=== PATIENT | male | born 1960 | race Caucasian/White ===

== ENCOUNTER → 2016-07-21 | Outpatient (CLI) | payer BC ==
[~2016-07-21] MED LIST: CINN500T PO; INSUINJ7 SC; INSUINJ8 SC
== END | disposition home or self-care (01) ==
LOC: C.LABSPEC 15:52
PROVIDERS: ATTEND Podiatrist
DX: Z48.89 Encounter for other specified surgical aftercare (principal); E11.621 Type 2 diabetes mellitus with foot ulcer; L03.031 Cellulitis of right toe

== ENCOUNTER → 2016-10-15 | Outpatient (CLI) | payer BC | END | disposition home or self-care (01) | LOC: C.LABSPEC 17:03 | PROVIDERS: ATTEND Podiatrist | DX: Z48.89 Encounter for other specified surgical aftercare (principal); L97.511 Non-pressure chronic ulcer of other part of right foot limited to breakdown of skin ==

== ENCOUNTER → 2017-08-22 | Outpatient (CLI) | payer OTHER ==
[2017-08-22 12:39] LABS: BASO % 0.3 %; BASO ABS # 0.03 K/uL (0-0.2); EOS % 1.7 %; EOS ABS # 0.18 K/uL (0-0.5); HEMATOCRIT 38.2 % (42-52); IG# 0.07 K/uL (0.00-0.02); LYMPH ABS # 1.91 K/uL (1.2-3.4); MEAN CELL VOLUME 80.8 fL (80-100); MEAN CORPUSCULAR HEMOGLOBIN 25.4 pg (25-34); MEAN CORPUSCULAR HGB CONC 31.4 g/dl (32-36); MEAN PLATELET VOLUME 9.6 fL (7.4-10.4); MONO % 7.3 %; MONO ABS # 0.77 K/uL (0.11-0.59); NEUT ABS # 7.65 K/uL (1.4-6.5); PLATELET COUNT 312 K/uL (130-400); RED CELL DISTRIBUTION WIDTH CV 15.6 % (11.5-14.5); RED CELL DISTRIBUTION WIDTH SD 46.2 fL (36.4-46.3); WHITE BLOOD COUNT 10.61 K/uL (4.8-10.8)
[2017-08-22 13:05] LABS: ALBUMIN 2.7 gm/dl (3.4-5.0); ALKALINE PHOSPHATASE 110 U/L (45-117); ALT/SGPT 12 U/L (12-78); AST/SGOT 12 U/L (15-37); BLOOD UREA NITROGEN 22 mg/dl (7-18); CALCIUM 8.2 mg/dl (8.5-10.1); CARBON DIOXIDE 28 mmol/L (21-32); CHOLESTEROL 171 mg/dl (0-200); CREATININE 0.81 mg/dl (0.60-1.40); GLUCOSE 110 mg/dl (70-99); LDL CHOLESTEROL CALCULATED 111 mg/dl; POTASSIUM 4.4 mmol/L (3.5-5.1); SODIUM 134 mmol/L (136-145); TOTAL PROTEIN 8.2 gm/dl (6.4-8.2)
[2017-08-22 13:19] LABS: HEMOGLOBIN A1C 9.6 % (4.5-5.6)
== END | disposition home or self-care (01) ==
LOC: C.LABPBG 09:22
PROVIDERS: ATTEND Internal Medicine
DX: I87.2 Venous insufficiency (chronic) (peripheral) (principal); E78.5 Hyperlipidemia, unspecified; E11.319 Type 2 diabetes mellitus with unspecified diabetic retinopathy without macular edema; E11.65 Type 2 diabetes mellitus with hyperglycemia; D64.9 Anemia, unspecified; M86.8X7 Other osteomyelitis, ankle and foot; S81.801A Unspecified open wound, right lower leg, initial encounter; X58.XXXA Exposure to other specified factors, initial encounter

== ENCOUNTER → 2017-11-29 | Outpatient (CLI) | payer OTHER ==
[~2017-11-29] MED LIST changes: +AMOX500C3 PO; -CINN500T PO; +CIPR1TAB11 PO
[2017-11-29 17:56] LABS: BLOOD UREA NITROGEN 18 mg/dl (7-18); CREATININE 0.98 mg/dl (0.60-1.40)
[2017-11-30 05:55] LABS: HEMOGLOBIN A1C 8.6 % (4.5-5.6)
== END | disposition home or self-care (01) ==
LOC: C.LABBC 12:12
PROVIDERS: ATTEND Physician Assistant
DX: S91.301D Unspecified open wound, right foot, subsequent encounter (principal); X58.XXXD Exposure to other specified factors, subsequent encounter; E11.319 Type 2 diabetes mellitus with unspecified diabetic retinopathy without macular edema

== ENCOUNTER → 2017-12-06 | Outpatient (CLI) | payer OTHER ==
[~2017-12-06] MED LIST changes: +GADAVIST IV PRN
--- NOTE | 2017-12-06 10:14 | DIAGNOSTIC IMAGING REPORT ---
RIGHT FOREFOOT MRI WITH AND WITHOUT INTRAVENOUS CONTRAST CLINICAL HISTORY: WOUND REDNESS. Right foot nonhealing wound. TECHNIQUE: Multiplanar multisequence MRI of the right forefoot was performed both before and after the intravenous administration of contrast. COMPARISON STUDY: Right forefoot MRI 02/26/2008. FINDINGS: The patient is status post amputation of the first toe. There is focal skin ulceration at the plantar surface of the head of the first metatarsal this measures approximately 1.7 cm. There is soft tissue enhancement surrounding the head of the first metatarsal. No fluid collection at this time to suggest a soft tissue abscess. Minimal sclerosis at the head of the first metatarsal without significant edema. Therefore, this is likely chronic. No abnormal enhancement within the first metatarsal or additional osseous structures to suggest osteomyelitis at this time. No fracture or dislocation within the forefoot. Degenerative changes seen at the first metatarsal joints. IMPRESSION: 1. No MRI evidence for osteomyelitis at this time. 2. Skin thickening and enhancement with a focal skin ulceration at the plantar surface of the head of the first metatarsal. This is consistent with a cellulitis. No abscess identified. Electronically signed by: Claude Abraham M.D. 12/06/2017 10:13 AM Dictated Date/Time: 12/06/2017 10:03 AM
== END | disposition home or self-care (01) ==
LOC: C.MRIBC 08:24
PROVIDERS: ATTEND Physician Assistant
DX: S91.301A Unspecified open wound, right foot, initial encounter (principal); X58.XXXA Exposure to other specified factors, initial encounter; R60.0 Localized edema

== ENCOUNTER → 2018-02-13 | Outpatient (CLI) | payer OTHER ==
[~2018-02-13] MED LIST changes: -AMOX500C3 PO; -CIPR1TAB11 PO; +DOXY100C41 PO; +DOXY1TAB6 PO; -GADAVIST IV PRN; +INSHNI; +INSHRIE; +SULF800T23 PO
[2018-02-13 16:59] LABS: HEMATOCRIT 40.8 % (42-52); HEMOGLOBIN 12.8 g/dL (14.0-18.0); MEAN CELL VOLUME 79.1 fL (80-100); MEAN CORPUSCULAR HEMOGLOBIN 24.8 pg (25-34); MEAN CORPUSCULAR HGB CONC 31.4 g/dl (32-36); MEAN PLATELET VOLUME 10.1 fL (7.4-10.4); PLATELET COUNT 260 K/uL (130-400); RED CELL DISTRIBUTION WIDTH CV 17.4 % (11.5-14.5); RED CELL DISTRIBUTION WIDTH SD 50.1 fL (36.4-46.3); WHITE BLOOD COUNT 10.24 K/uL (4.8-10.8)
[2018-02-13 17:11] LABS: BLOOD UREA NITROGEN 12 mg/dl (7-18); CALCIUM 8.3 mg/dl (8.5-10.1); CARBON DIOXIDE 26 mmol/L (21-32); CREATININE 0.82 mg/dl (0.60-1.40); GLUCOSE 221 mg/dl (70-99); POTASSIUM 4.5 mmol/L (3.5-5.1); SODIUM 133 mmol/L (136-145)
[2018-02-13 17:21] LABS: INR 0.9 (0.9-1.1)
== END | disposition home or self-care (01) ==
LOC: C.LABPBG 15:04
PROVIDERS: ATTEND Internal Medicine Interventional Cardiology
DX: Z01.818 Encounter for other preprocedural examination (principal)

== ENCOUNTER → 2018-02-17 | Day surgery (SDC) | payer OTHER ==
[~2018-02-17] VITALS: Ht 175.3 cm; Wt 148.0 kg
[~2018-02-17] MED LIST changes: +EPINEPHRINE INFIL SCH; +LIDOCAINE HCL 1% 20 ML VIAL ONE; +LIDOCAINE INFIL SCH; +NURSING VERBAL MED ORDER ONE; +SODIUM BICARBONATE INFIL SCH; +[UNRECOGNIZED DRUG - OTHER] INFIL SCH
[2018-02-17 07:12] VITALS: BP 146/61; PULSE 72; TEMP 36.8; O2SAT 93; Ht 175.3 cm; Wt 148.0 kg
--- NOTE | 2018-02-17 08:15 | History and Physical ---
History & Physical Date Feb 17, 2018. History of Present Illness Mr. 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 Patient states that the wound on the plantar aspect of his right foot has been there for probably more than a year. He reports longstanding issues with bilateral lower extremity swelling and prior venous ulcers, was previously treated with Unna boots by his intravenous therapy nurse without significant relief. More recently has been treated at the wound care center since 11/22 with improvement in ulceration size with compressive therapy and standard wound care. Underwent a venous reflux ultrasound study on 11/29/2017, which showed his right GSV to be dilated with reflux. Left GSV was also dilated with reflux, both appearing amenable to endovascular intervention. Past Medical/Surgical History 1. Poorly controlled type 2 diabetes. 2. Hyperlipidemia. 3. Prior diabetic foot ulceration, status post amputation. 4. Anemia. 5. Chronic venous insufficiency. 6. Morbid obesity with a probable obstructive sleep apnea. Additional History Hepatic Disease: No Endocrine Disorder: Yes Kidney Disease: No Hypertension: Yes Heart Disease: No Bleeding Tendencies: No Infectious Diseases: No Allergies Coded Allergies: Sulfamethoxazole w/Trimethoprim (Verified Allergy, Mild, NAUSEA VOMITTING , 11/24/17) STATED HE FELT LIKE HE HAD THE "FLU" WHEN HE TOOK THIS MEDICATION Bacitracin (Verified Adverse Reaction, Unknown, GI UPSET, 03/19/16) Neomycin (Verified Adverse Reaction, Unknown, GI UPSET, 03/19/16) Polymyxin B (Verified Adverse Reaction, Unknown, GI UPSET, 03/19/16) Home Medications Scheduled Doxycycline (Monohydrate) (Monodox), 100 MG PO BID Doxycycline Hyclate (Doxycycline Hyclate), 1 TAB PO BID Insulin Human NPH (Humulin N), UD Miscellaneous Medications Insulin Human Regular (Humulin R) Physical Examination Skin: warm/dry Eyes: normal inspection Respiratory/Chest: lungs clear Cardiovascular: regular rate, rhythm Abdomen / GI: normal bowel sounds Extremities: + pertinent finding (swelling, hyperpigmented, ulcerations bilaterally) Neurologic/Psych: alert ASA Classification: ASA Class III Plan of Treatment Proceed with bilateral GSV RFA
--- NOTE | 2018-02-17 08:15 | Pre Sedation Assessment ---
Pre Sedation Assessment General Date of Sedation: Feb 17, 2018. Vital Signs Past 12 Hours Date Time Temp Pulse Resp B/P (MAP) Pulse Ox O2 Delivery O2 Flow Rate FiO2 02/17/18 07:12 36.8 72 18 146/61 (89) 93 Room Air Review Cardiovascular: regular rate, rhythm, no edema Lungs: chest non-tender, lungs clear Pre-Sedation Airway Assessment Smoking Status: Never Smoker Hx of Sleep Apnea: Yes Short Thick Neck: Yes Thyro-mental Distance: < or =3 Finger Breadths Oral Cavity: WNL Mallampati Classification: Class IV ASA Classification: Class III NPO Status Date of Last Intake of Fluids: Feb 16, 2018 Time of Last Intake of Fluids: 2199 Date of Last Intake of Solids: Feb 16, 2018 Time of Last Intake of Solids: 2199 Procedure Planning Contraindications for Sedation: None Current Medications Reviewed: Yes Notes The planned sedation has been discussed with the patient. Informed Consent was obtained. I have identified the patient, determined the appropriateness of sedation and have assessed the patient immediately prior to the procedure. All medicine(s) and interventions are by my order.
--- NOTE | 2018-02-17 10:12 | Discharge Instructions ---
Discharge Instructions Procedure Procedure Date: Feb 17, 2018. Reason for Visit: Venous Insufficiency *Dr Dunne Doing*. Discharge Discharge Date: Feb 17, 2018. Discharge Diagnosis: Venous insufficiency Last Recorded Wt (Kilograms): 148 Anesthesia Post Anesthesia Instructions: If you have had General Anesthesia or IV Sedation: * Do not drive today. * Resume driving when surgeon permits. * Do not make important decisions or sign legal documents today. * Call surgeon for: 1. Temperature elevations greater than 101 degrees F. 2. Uncontrollable pain. 3. Excessive bleeding. 4. Persistent nausea and vomiting. 5. Medication intolerance (nausea, vomiting or rash). * For nausea and vomiting use only clear liquids such as: tea, soda, bouillon until nausea subsides, then gradually increase diet as tolerated. * If you have any concerns or questions, call your surgeon's office. If physician is unavailable and it is an emergency, call 911 or go to the nearest emergency room. Instructions Activity Recommendations: limitations as noted below Return to School/Work: with no limitations Recommended Home Diet: resume previous diet Allergies: Coded Allergies: Sulfamethoxazole w/Trimethoprim (Verified Allergy, Mild, NAUSEA VOMITTING , 11/24/17) STATED HE FELT LIKE HE HAD THE "FLU" WHEN HE TOOK THIS MEDICATION Bacitracin (Verified Adverse Reaction, Unknown, GI UPSET, 03/19/16) Neomycin (Verified Adverse Reaction, Unknown, GI UPSET, 03/19/16) Polymyxin B (Verified Adverse Reaction, Unknown, GI UPSET, 03/19/16) Follow Up Additional Instructions: Follow instructions as outlined in paperwork from Dr. Dunne' office. Up walking today. Follow up Ultrasound as scheduled. JASPER wrap until scheduled ultrasound Post ultrasound wear compression stockings indefinitely. Any severe pain, present to the emergency room for evaluation for DVT. Follow-up with: As scheduled. Ultrasound on Tuesday [facility] Recommendations: Call your doctor if: * Temperature above 101 degrees * Pain not relieved by pain medicine ordered * There is increased drainage or redness from any incision * You have any unanswered questions or concerns. Your Doctors Instructions noted above were prepared by provider Mina Dunne. Patient Signature Section: Patient Instructions Signature Page Terrance Denise Patient (or Guardian) Signature/Date: I have read and understand the instructions given to me by my caregivers. Caregiver/RN/Doctor Signature/Date: The above-named patient and/or guardian has received patient instructions on this date. + Original Patient Signature Page (only) stays with chart. Please make copy for patient.
[2018-02-17 10:28] VITALS: O2SAT 92
[2018-02-17 10:30] VITALS: BP 154/62; PULSE 77
--- NOTE | 2018-02-17 10:47 | Post Sedation Assessment ---
Post Sedation Assessment General Date of Sedation Feb 17, 2018. Vital Signs: Vital Signs Past 12 Hours Date Time Temp Pulse Resp B/P (MAP) Pulse Ox O2 Delivery O2 Flow Rate FiO2 02/17/18 10:30 77 18 154/62 (92) 02/17/18 10:28 65 18 150/49 (82) 92 Room Air 02/17/18 10:00 65 18 145/48 (80) 94 Room Air 02/17/18 09:43 71 18 140/60 (86) 94 Room Air 02/17/18 07:12 36.8 72 18 146/61 (89) 93 Room Air Post Procedure Recovery Score Activity: (2) Moves 4 extremities * Respiration: (2) Deep breath/cough Circulation: (2) +/-20% PreAnes Value Consciousness: (2) Fully Awake Oxygen Saturation: (2) > 92% On Room Air Post Anesthesia Score: 10 Discharge Sedation Level of Care: Phase I Post Sedation Plan On clinical assessment, the patient appears to have tolerated the sedation without complications. Patient is recovering as anticipated. Patient will continue to be monitored by nursing and may be discharged when sedation discharge criteria are met per below protocol. Upon Completions of procedure and additional 15 minutes continue every 5 minute vital signs and the P.A.R. score; then discharge to a Phase I or Fast Track to Phase II per the following guidelines: * Discharge Patient to appropriate Phase II area if PAR is 8 or greater or return to pre- procedure baseline. The post - procedure orders will be as directed. * If PAR score is less than 8 or not return to pre-procedure baseline then patient will follow Phase I monitoring till PAR is reached for Phase II. The Phase I may be done in procedure room or may call to secure a Phase I area. * If naloxone or flumazenil are used for reversal, hold in Phase I for an additional 60 -120 minutes before discharge to Phase II. Please call the Sedation Physician to re-evaluate and complete post-note for discharge to Phase II area. Do NOT discharge from procedure sedation or Phase 1 until post- sedation evaluation note is complete by procedure /sedation MD Sedation Discharge Instructions to be given to the patient at discharge to home.
--- NOTE | 2018-02-17 10:50 | [facility] Operative Report ---
Operative Report Operative Date Feb 17, 2018. Pre-Operative Diagnosis Chronic venous insufficiency Post-Operative Diagnosis Chronic venous insufficiency Procedure(s) Performed Right GSV radiofrequency ablation. Left GSV radiofrequency ablation. Ultrasound guided access Surgeon Uzair Surveyor Oil Well Directional Surgeon(s) Violet Estimated Blood Loss <10 Findings Dilated bilateral GSVs Drains None Anesthesia Type Local Complication(s) none Description of Procedure US guided access Right GSV below the knee. Catheter inserted, 3cm from SFJ. Tumescent injected. US confirmed not in deep system. 4:00, 12 cycles of RFA right GSV. No complications. Patient tolerated well. US confirmed no DVT post procedure. US guided access Left GSV below the knee. Catheter inserted, 3cm from SFJ. Tumescent injected. US confirmed not in deep system. 3:00, 9 cycles of RFA right GSV. No complications. Patient tolerated well. US confirmed no DVT post procedure. Summary: 1. Successful RFA of right GSV 2. Successful RFA of left GSV I attest to the content of the Intraoperative Record and any orders documented therein. Any exceptions are noted below.
--- NOTE | 2018-02-17 11:34 | DIAGNOSTIC IMAGING REPORT ---
L GUIDANCE FOR VENOUS ABLATION HISTORY: 57 years-old Male GUIDE FOR VENOUS ABLATION LEFT COMPARISON: None available TECHNIQUE: Multiple real-time sonographic images of the left greater saphenous vein were obtained assessing grayscale appearance and color flow FINDINGS: First image demonstrates a linear hypoechoic structure described as the greater saphenous vein with second image demonstrating internal color flow within this structure. The last image labeled greater saphenous vein was likely obtained postprocedural and shows increased echogenicity of the greater saphenous vein suggesting postablation changes. No internal flow was documented on the post ablation images. IMPRESSION: Sonographic assistance as above. Please see procedural report for further details. The above report was generated using voice recognition software. It may contain grammatical, syntax or spelling errors. Electronically signed by: Pollo Brandon M.D. 02/17/2018 11:33 AM Dictated Date/Time: 02/17/2018 11:31 AM
== END | disposition home or self-care (01) ==
LOC: C.EP 06:36
PROVIDERS: ATTEND Internal Medicine Interventional Cardiology
DX: I87.2 Venous insufficiency (chronic) (peripheral) (principal); E11.9 Type 2 diabetes mellitus without complications; E78.5 Hyperlipidemia, unspecified; E66.01 Morbid (severe) obesity due to excess calories; G47.33 Obstructive sleep apnea (adult) (pediatric); Z88.2 Allergy status to sulfonamides; Z88.1 Allergy status to other antibiotic agents; Z79.4 Long term (current) use of insulin

== ENCOUNTER 2021-06-26 08:47 | Inpatient (IN) ==
--- NOTE | 2021-06-26 09:20 | Emergency Department Note ---
History of Present Illness General Chief complaint: Abnormal Labs/Diagnostic Testing Stated complaint: BLOOD PLATELETS LOW,REF BY DOC Time Seen by Provider: 06/26/21 08:57 History of Present Illness Provider complaint: Abnormal blood work Onset (ago): day(s) 3 Location: face, mouth, chest and lower extremity Maximum Pain Intensity: 3 Associated symptoms: no chest pain, no cough, no headaches, no nausea/vomiting or no shortness of breath Treatments prior to arrival: none 60-year-old male presents emergency department for abnormal blood work. Patient states he saw his PCP yesterday and had blood work done and they told him his platelet count was low. He states his PCP told him to come into the hospital yesterday however he did not want to because he had to take care of his pet animals at home. Patient reports he has been having bloody noses in sores in his mouth for the last 3 days. He denies any fevers. Denies any headaches. Denies any hematuria or dysuria. No hemoptysis. Patient reports no abdominal pain. Home Medications Medication Instructions Recorded Confirmed Type CPAP Machine #1 ea 09/24/19 06/25/21 Rx CPAP Machine #1 ea 11/22/19 06/25/21 Rx FreeStyle Fabio 14 Day [place] #6 ea NS 12/26/19 06/25/21 Rx (flash glucose scanning reader) CPAP Machine #1 ea 02/28/20 06/25/21 Rx FreeStyle Fabio 14 Day Sensor #6 ea NS 07/23/20 06/25/21 Rx (flash glucose sensor) insulin NPH isoph U-100 human 100 See Rx Instructions SQ .COMPLEX 07/23/20 06/26/21 Rx unit/mL subcutaneous suspension #120 ml (Novolin N NPH U-100 Insulin isophane) insulin regular human 100 unit/mL See Rx Instructions SQ .COMPLEX 07/23/20 06/26/21 Rx injection solution (Novolin R #120 ml MDD 400 units Regular U-100 Insulin) insulin syringe-needle U-100 1 mL #180 ea 07/23/20 06/25/21 Rx 30 gauge x 1/2" (BD Insulin Syringe Ultra-Fine) irbesartan 150 mg tablet See Rx Instructions .ROUTE 02/10/21 06/26/21 Rx .COMPLEX #30 tab metformin 500 mg tablet,extended See Rx Instructions .ROUTE 02/10/21 06/26/21 Rx release 24 hr .COMPLEX #60 tab torsemide 20 mg tablet See Rx Instructions .ROUTE 02/10/21 06/26/21 Rx .COMPLEX #30 tab Allergies Allergy/AdvReac Type Severity Reaction Status Date / Time sulfamethoxazole AdvReac Mild NAUSEA, Verified 06/26/21 09:06 VOMITING trimethoprim AdvReac Mild NAUSEA, Verified 06/26/21 09:06 VOMITING bacitracin AdvReac Unknown GI UPSET Verified 06/26/21 09:06 neomycin AdvReac Unknown GI UPSET Verified 06/26/21 09:06 polymyxin B AdvReac Unknown GI UPSET Verified 06/26/21 09:06 Past Med/Surg History Medical History Anemia hx Chronic back pain Chronic venous insufficiency Diabetes Type 2 - IDDM Edema Hypertension Nocturnal hypoxemia Open wound of right lower extremity with complication on abx therapy -- Dr. 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 Hx of colonoscopy S/P foot surgery, right S/P lymph node biopsy needle aspiration Family History Father Acute myocardial infarction Alcohol abuse Tobacco use Diabetes Myocardial infarction Mother Brain cancer Social History Smoking Status: Never smoker Second Hand Exposure: No; Hx Alcohol Use: No Hx Substance Use: No Preferred Language: Swedish Communication Ability: Effective Visual Impairment: No Limitations Hearing Ability: Normal Normalizer Required: No Beliefs That Will Affect Care: None marital status: single Current Living Situation: Alone current occupational status: employed and unemployed How many Children do You have: 0 Feels Safe at Home: Yes caffeine: Yes during the past year weight has: remained stable Dental Care, Regularly: No Physical Activity Frequency: 1-2 Times per Week Physical Activity Frequency Comment: walks in the summertime Seatbelt Use: never Sunscreen Use: No Assistive Devices: None Review of Systems A total of 10 systems reviewed and were otherwise negative Physical Exam Vital Signs Vital Signs - 24 hr 06/26/21 08:50 06/26/21 10:00 Temperature 36.6 C Temperature Source Temporal Artery Scan Pulse Rate 93 H Pulse Rate [Left Finger] 72 Pulse Rhythm [Left Finger] Regular Pulse Strength [Left Finger] Normal Respiratory Rate 18 20 Respiratory Effort / Characteristics Non-Labored Spontaneous Non-Labored Spontaneous Respiratory Depth Normal Normal Blood Pressure 168/76 H Blood Pressure [Left Arm] 149/58 H Blood Pressure Mean 106 Blood Pressure Mean [Left Arm] 88 Blood Pressure Position Sitting Blood Pressure Position [Left Arm] Sitting Pulse Oximetry 93 95 Oxygen Delivery Method Room Air Room Air Sepsis Recent Fever Within 48 Hours No Sepsis New/Unexplained Change in Mental Status No Sepsis Action Taken by Nursing No Action Required Physical Exam GENERAL: He is oriented to person, place, and time. He appears well-developed and well-nourished. He does not appear distressed. HENT: Exam performed. - Head: Normocephalic and atraumatic. - Right Ear: External ear normal. No mastoid tenderness. - Left Ear: External ear normal. No mastoid tenderness. - Mouth/Throat: Lesions on the tongue and posterior pharynx which appear to be wet purpura. EYES: Conjunctivae and EOM are normal. Pupils are equal, round, and reactive to light. Right eye exhibits no discharge. Left eye exhibits no discharge. No scleral icterus. NECK: Normal range of motion. Neck supple. No JVD present. No spinous process tenderness present. No carotid bruit present. No rigidity. No tracheal deviation and normal range of motion present. No Brudzinski's sign and no Kernig's sign noted. CV: Normal rate, irregular rhythm, normal heart sounds and intact distal pulses. There is no peripheral edema. Palpable radial pulses bue. PULM/CHEST: Effort normal and breath sounds normal. No respiratory distress. No stridor. He has no wheezes. He has no rales. - Chest Wall: He exhibits no tenderness. ABD: The abdomen is soft. Bowel sounds are normal. He has no distension. No mass is present. There is no tenderness. There is no rebound, no guarding, no Farrar's sign and no tenderness at McBurney's point. Rovsig negative. MUSC/SKEL: Normal range of motion. There is no peripheral edema, tenderness or deformity. LYMPH: No cervical adenopathy. NEURO: He is alert and oriented to person, place, and time. He has normal strength. No cranial nerve deficit or sensory deficit. Coordination and gait normal. GCS eye subscore is 4. GCS verbal subscore is 5. GCS motor subscore is 6. Cerebellar tests wnl. SKIN: Petechial rash over the patient's face anterior chest wall and anterior abdominal wall. PSYCH: He has a normal mood and affect. Behavior is normal. Judgment and thought content normal. Course Course 0857: The patient was evaluated in room B4. A complete history and physical exam was performed Cardiac monitoring: An order was placed for continuous cardiac monitoring. The monitor shows a rate of 90 with atrial fibrilation rhythm EMR reviewed. Patient was seen by their PCP yesterday and had blood work done and showed a platelet count of 2. 1015: Vital signs stable. Labs show a platelet count of 1. Hemoglobin 11.6. A blood cell count 10.64. Total bilirubin 0.9. Liver function test within normal limits. BUN 28 creatinine 0.99. Discussed the case with on-call oncology Dr. Gibson who agrees with me and that the patient could be suffering from ITP. She recommends ordering an additional peripheral smear, reticulocyte count, haptoglobin level, LDH level. She recommends IVIG 150 g every 24 hours for 2 days. She recommends the patient getting Tylenol p.o. 650 mg and Benadryl 25 mg prior to the IVIG infusion. She also recommends Decadron 40 mg daily for 4 days. She states to transfuse 1 unit of platelets. She states the patient should be admitted to the hospitalist team which will be on consult. Patient wi ll be admitted to the [facility] hospitalist service. Critical Care Time Critical Care Time: Yes Total Critical Care Time: 58 I have personally spent greater than 58 minutes of critical care time in the direct management of this patient. This includes bedside care, interpretation of diagnostic studies, and testing, discussion with consultants, patient, and family members, and other required patient management activities. This 58 minutes is in excess of all separately billable procedures. Medical Decision Making Laboratory Data Result diagrams: 06/26/21 09:25 06/26/21 09:25 Lab Results 06/26/21 06/26/21 06/26/21 Range/Units 09:24 09:25 09:25 WBC 10.64 (4.8-10.8) K/uL RBC 3.96 L (4.7-6.1) M/uL Hgb 11.6 L (14.0-18.0) g/dL Hct 35.5 L (42-52) % MCV 89.6 (80-100) fL MCH 29.3 (25-34) pg MCHC 32.7 (32-36) g/dL RDW Std Deviation 43.4 (36.4-46.3) fL RDW Coeff of Jeremy 13.3 (11.5-14.5) % Plt Count 1 L* (130-400) K/uL Immature Gran % (Auto) 4.3 % Neut % (Auto) 73.5 % Lymph % (Auto) 13.0 % [place] % (Auto) 7.6 % Eos % (Auto) 1.3 % Baso % (Auto) 0.3 % Reticulocyte % (Auto) 2.7 H (0.5-2.0) % Neut # (Auto) 7.82 H (1.4-6.5) K/uL Lymph # (Auto) 1.38 (1.2-3.4) K/uL [place] # (Auto) 0.81 H (0.11-0.59) K/uL Eos # (Auto) 0.14 (0-0.5) K/uL Baso # (Auto) 0.03 (0-0.2) K/uL Reticulocyte # 0.11 H (0.02-0.10) 10^6/uL Immature Gran # (Auto) 0.46 H (0.00-0.02) K/uL Platelet Estimate SIGNIFIC DECREASED (Normal) RBC Morphology Unremarkable Peripher Smr Path Cons PT 10.0 (9.0-12.0) Seconds INR 1.0 (0.9-1.1) APTT 25.8 (21.0-31.0) Seconds PTT Ratio 1.0 Sodium (136-145) mmol/L Potassium (3.5-5.1) mmol/L Chloride (98-107) mmol/L Carbon Dioxide (21-32) mmol/L Anion Gap (3-11) BUN (7-18) mg/dl Creatinine (0.6-1.4) mg/dl Est Cr Clr Drug Dosing ml/min Est GFR ( Amer) ml/min Est GFR (Non-Af Amer) ml/min BUN/Creatinine Ratio (10-20) Glucose (70-99) mg/dl Calcium (8.5-10.1) mg/dl Total Bilirubin (0.2-1) mg/dl Direct Bilirubin (0-0.2) mg/dl AST (15-37) U/L ALT (12-78) Alkaline Phosphatase (45-117) U/L Lactate Dehydrogenase (87-241) U/L Total Protein (6.4-8.2) gm/dl Albumin (3.4-5.0) gm/dl Blood Type O Positive Antibody Screen NEGATIVE 06/26/21 06/26/21 06/26/21 Range/Units 09:25 09:25 09:25 WBC (4.8-10.8) K/uL RBC (4.7-6.1) M/uL Hgb (14.0-18.0) g/dL Hct (42-52) % MCV (80-100) fL MCH (25-34) pg MCHC (32-36) g/dL RDW Std Deviation (36.4-46.3) fL RDW Coeff of Jeremy (11.5-14.5) % Plt Count (130-400) K/uL Immature Gran % (Auto) % Neut % (Auto) % Lymph % (Auto) % [place] % (Auto) % Eos % (Auto) % Baso % (Auto) % Reticulocyte % (Auto) Cancelled (0.5-2.0) % Neut # (Auto) (1.4-6.5) K/uL Lymph # (Auto) (1.2-3.4) K/uL [place] # (Auto) (0.11-0.59) K/uL Eos # (Auto) (0-0.5) K/uL Baso # (Auto) (0-0.2) K/uL Reticulocyte # Cancelled (0.02-0.10) 10^6/uL Immature Gran # (Auto) (0.00-0.02) K/uL Platelet Estimate (Normal) RBC Morphology Peripher Smr Path Cons Cancelled PT (9.0-12.0) Seconds INR (0.9-1.1) APTT (21.0-31.0) Seconds PTT Ratio Sodium 137 (136-145) mmol/L Potassium 4.6 (3.5-5.1) mmol/L Chloride 104 (98-107) mmol/L Carbon Dioxide 26 (21-32) mmol/L Anion Gap 7.0 (3-11) BUN 28 H (7-18) mg/dl Creatinine 0.99 (0.6-1.4) mg/dl Est Cr Clr Drug Dosing 123.0 ml/min Est GFR ( Amer) 96.9 ml/min Est GFR (Non-Af Amer) 83.6 ml/min BUN/Creatinine Ratio 27.9 H (10-20) Glucose 286 H (70-99) mg/dl Calcium 8.3 L (8.5-10.1) mg/dl Total Bilirubin 0.9 (0.2-1) mg/dl Direct Bilirubin 0.1 (0-0.2) mg/dl AST 14 L (15-37) U/L ALT 15 (12-78) Alkaline Phosphatase 106 (45-117) U/L Lactate Dehydrogenase 260 H (87-241) U/L Total Protein 7.4 (6.4-8.2) gm/dl Albumin 3.1 L (3.4-5.0) gm/dl Blood Type Antibody Screen Imaging Data Radiologist's Impression: Head CT 06/26/21 09:01 CT head/brain wo con CLINICAL HISTORY: ro ich Technique: Contiguous axial CT images of the head were acquired from the base of the skull to the vertex without intravenous contrast administration. Images were viewed in brain, subdural and bone windows. Automated dose lowering techniques and/or adjustment according to patient size were utilized for this exam. Comparison: None available at the time of this dictation. Findings: The ventricles, basal cisterns, and cerebral sulci are normal. There is no acute intracranial hemorrhage or evidence of acute territorial infarction. Neither mass effect, shift of the midline structures, nor abnormal extra-axial fluid collections are shown. Imaged portions of the paranasal sinuses and mastoid air cells are clear. The orbits appear normal. There are no acute fractures of the calvaria or scalp swelling. Impression: No acute intracranial hemorrhage, no evidence of acute territorial infarction or other acute intracranial disease process. ACT 112: Negative or not required by law. Electronically signed by: Antonio Correa M.D. 06/26/2021 9:41 AM ECG Data Indication: + other (arrythmia) Rate (beats per minute): 82 Rhythm: + atrial fibrillation ECG Intervals/blocks: + Normal QRS and + Normal QT-c ECG ST segments: + Normal ST segments [facility] Narrative 0857: The patient was evaluated in room B4. A complete history and physical exam was performed Cardiac monitoring: An order was placed for continuous cardiac monitoring. The monitor shows a rate of 90 with atrial fibrilation rhythm EMR reviewed. Patient was seen by their PCP yesterday and had blood work done and showed a platelet count of 2. 1015: Vital signs stable. Labs show a platelet count of 1. Hemoglobin 11.6. A blood cell count 10.64. Total bilirubin 0.9. Liver function test within normal limits. BUN 28 creatinine 0.99. Discussed the case with on-call oncology Dr. Gibson who agrees with me and that the patient could be suffering from ITP. She recommends ordering an additional peripheral smear, reticulocyte count, haptoglobin level, LDH level. She recommends IVIG 150 g every 24 hours for 2 days. She recommends the patient getting Tylenol p.o. 650 mg and Benadryl 25 mg prior to the IVIG infusion. She also recommends Decadron 40 mg daily for 4 days. She states to transfuse 1 unit of platelets. She states the patient should be admitted to the hospitalist team which will be on consult. Patient will be admitted to the [facility] hospitalist service. Impression & Plan Acute ITP Discharge Plan Visit Data Chief Complaint: Abnormal Labs/Diagnostic Testing Stated Complaint: BLOOD PLATELETS LOW,REF BY DOC Discharge Problem: Acute ITP Patient Disposition: Admitted As Inpatient Forms Stand Alone Forms: My [facility] Prescriptions Prescriptions: No Action (DME) CPAP Machine Misc See Rx Instructions .ROUTE .MEDSUPPLY Qty: 1 RF: 0 (DME) FreeStyle Fabio 14 Day Wenona Misc See Rx Instructions .ROUTE .MEDSUPPLY Qty: 6 RF: 3 (DME) FreeStyle Fabio 14 Day Sensor Kit See Rx Instructions .ROUTE .MEDSUPPLY Qty: 6 RF: 3 Novolin N NPH U-100 Insulin 100 unit/mL suspension See Rx Instructions SQ .COMPLEX Qty: 120 RF: 5 Novolin R Regular U-100 Insuln 100 unit/mL solution See Rx Instructions SQ .COMPLEX MDD 400 units Qty: 120 RF: 5 (DME) insulin syringe-needle U-100 [BD Insulin Syringe Ultra-Fine] 1 mL 30 gauge x 1/2" syringe See Dose Instructions .ROUTE .MEDSUPPLY Qty: 180 RF: 5 metformin 500 mg tablet extended release 24 hr See Rx Instructions .ROUTE .COMPLEX Qty: 60 RF: 5 irbesartan 150 mg tablet See Rx Instructions .ROUTE .COMPLEX Qty: 30 RF: 5 torsemide 20 mg tablet See Rx Instructions .ROUTE .COMPLEX Qty: 30 RF: 5 (DME) CPAP Machine Misc See Rx Instructions .MEDSUPPLY Qty: 1 RF: 0 (DME) CPAP Machine Misc See Rx Instructions .ROUTE .MEDSUPPLY Qty: 1 RF: 0 Referrals Referrals: Frank Landeros MD [Primary Care Provider] -
--- NOTE | 2021-06-26 09:43 | CT Scan Report ---
CT head/brain wo con CLINICAL HISTORY: ro ich Technique: Contiguous axial CT images of the head were acquired from the base of the skull to the manuel odette without intravenous contrast administration. Images were viewed in brain, subdural and bone [facility] hospital[facility] . Automated dose lowering techniques and/or adjustment according to patient size were utilized for this exam. Comparison: None available at the time of this dictation. Findings: The ventricles, basal cisterns, and cerebral sulci are normal. There is no acute intracranial hemorrh age or evidence of acute territorial infarction. Neither mass effect, shift of the midline structures , nor abnormal extra-axial fluid collections are shown. Imaged portions of the paranasal sinuses and mastoid air cells are clear. The orbits appear normal. There are no acute fractures of the calvaria or scalp swelling. Impression: No acute intracranial hemorrhage, no evidence of acute territorial infarction or other acute intracra nial disease process. ACT 112: Negative or not required by law. Electronically signed by: Antonio Correa M.D. 06/26/2021 9:41 AM
[2021-06-26 09:47] LABS: Partial Thromboplastin Time 25.8 Seconds (21.0-31.0)
[2021-06-26 09:53] LABS: Albumin Level 3.1 gm/dl (3.4-5.0); BUN Creatinine Ratio 27.9 (10-20); Bilirubin Direct 0.1 mg/dl (0-0.2); Calcium 8.3 mg/dl (8.5-10.1); Est GFR (African American) 96.9 ml/min; Est GFR (Non-African American) 83.6 ml/min; Potassium 4.6 mmol/L (3.5-5.1)
[2021-06-26 09:55] LABS: Bilirubin,Total 0.9 mg/dl (0.2-1); Total Protein 7.4 gm/dl (6.4-8.2)
[2021-06-26 10:03] LABS: Mean Corpuscular Hgb Conc 32.7 g/dL (32-36); Platelet Count 1 K/uL (130-400)
[2021-06-26 10:04] LABS: Basophils # (auto) 0.03 K/uL (0-0.2); Basophils % (auto) 0.3 %; Eosinophils # (auto) 0.14 K/uL (0-0.5); Eosinophils % (auto) 1.3 %; Hematocrit (blood only) 35.5 % (42-52); Hemoglobin 11.6 g/dL (14.0-18.0); Immature Granulocytes # (auto) 0.46 K/uL (0.00-0.02); Immature Granulocytes % (auto) 4.3 %; Lymphocytes # (auto) 1.38 K/uL (1.2-3.4); Mean Corpuscular Hemoglobin 29.3 pg (25-34); Mean Corpuscular Volume 89.6 fL (80-100); Monocytes # (auto) 0.81 K/uL (0.11-0.59); Monocytes % (auto) 7.6 %; Neutrophils # (auto) 7.82 K/uL (1.4-6.5); Neutrophils % (auto) 73.5 %; Platelet Estimate SIGNIFIC DECREASED (Normal); RBC Morphology Unremarkable; RDW Coefficient of Variation 13.3 % (11.5-14.5); RDW Standard Deviation 43.4 fL (36.4-46.3); Red Blood Count 3.96 M/uL (4.7-6.1); White Blood Count 10.64 K/uL (4.8-10.8)
[2021-06-26] MEDS ORDERED: SODIUM CHLORIDE 0.9% 250 ML IV PRN (10:17)
[2021-06-26] MEDS ORDERED: IMMUNE GLOBULIN (HUMAN) SOLN IV ONE (10:19)
[2021-06-26] MEDS ORDERED: diphenhydrAMINE 50 MG/ML VIAL IV STA (10:20)
[2021-06-26] MEDS ORDERED: ACETAMINOPHEN 325 MG TAB PO STA (10:20)
[2021-06-26] MEDS ORDERED: DEXAMETHASONE SOD INJ 4 MG/ML VIAL IV STA (10:20)
[2021-06-26 10:38] LABS: Reticulocyte % 2.7 % (0.5-2.0); Reticulocytes # 0.11 10^6/uL (0.02-0.10)
--- NOTE | 2021-06-26 10:55 | History & Physical Report ---
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 Peripheral smear, retic count, haptoglobin Transfuse 1 units of platelets IVIG 1g/kg for 2 days (diphenhydramine 25mg PO and acetaminophen 650mg PO 30 mins prior to infusion) Dexamethasone 40mg IV for 4 days He is not taking any precipitating medication HIV and hep C testing with next set of labs Consult hematology (2) Diabetes: Plan: Hemoglobin A1C 8.16 January 2021, repeat with AM labs Hold metformin Home insulin regimen Consult pharmacy for glycemic control in setting of high dose steroids - discussed case with ER pharmacist (3) Severe obstructive sleep apnea: Plan: BiPAP HS 31/03 (4) Hypertension: Plan: Continue irbesartan 150 mg p.o. daily Torsemide 20 mg p.o. daily Additional Lasix 40 mg IV given due to multiple transfusions required. (5) Venous stasis ulcer of left lower extremity: Plan: Does not appear cellulitic on admission but will need closely monitoring Plan: VTE Prophylaxis - Chemical contraindicated due to thrombocytopenia, SCDs not a good idea for the same reason Diet - T2DM Disposition - admit to med/tele Admission and Anticipated Discharge Date Admission Date: June 26, 2021 History of Present Illness Chief Complaint: Low platelets Primary Care Provider: Frank Landeros MD Terrance Walker is a 60 year old male who presents to the ER due to abnormal outpatient labs showing thrombocytopenia. He notes 2 weeks of cold/flu symptoms with nasal congestion, no fevers, chills, sinus pain, shortness of breath or chest pain. He reports epistaxis and tongue ulcers for the last 2 days. No melena or bright red blood in stool. He denies any history of autoimmune conditions such as IBD, RA or lupus. No known family history of hematological cancers. In the ER CT head was negative for intracranial hemorrhage. Hemoglobin 11.6 from 12.8 yesterday. LDH minimally elevated at 260. Thrombocytopenia was confirmed with platelet count 1K/uL. Hematology were contacted and recommending IVIG and dexamethasone. He was referred to medicine for admission ongoing management of ITP. Allergies Allergy/AdvReac Type Severity Reaction Status Date / Time sulfamethoxazole AdvReac Mild NAUSEA, Verified 06/26/21 09:06 VOMITING trimethoprim AdvReac Mild NAUSEA, Verified 06/26/21 09:06 VOMITING bacitracin AdvReac Unknown GI UPSET Verified 06/26/21 09:06 neomycin AdvReac Unknown GI UPSET Verified 06/26/21 09:06 polymyxin B AdvReac Unknown GI UPSET Verified 06/26/21 09:06 Home Medications Medication Instructions Recorded Confirmed Type CPAP Machine #1 ea 09/24/19 06/25/21 Rx CPAP Machine #1 ea 11/22/19 06/25/21 Rx FreeStyle Fabio 14 Day Odon #6 ea NS 12/26/19 06/25/21 Rx (flash glucose scanning reader) CPAP Machine #1 ea 02/28/20 06/25/21 Rx FreeStyle Fabio 14 Day Sensor #6 ea NS 07/23/20 06/25/21 Rx (flash glucose sensor) insulin NPH isoph U-100 human 100 See Rx Instructions SQ .COMPLEX 07/23/20 06/26/21 Rx unit/mL subcutaneous suspension #120 ml (Novolin N NPH U-100 Insulin isophane) insulin regular human 100 unit/mL See Rx Instructions SQ .COMPLEX 07/23/20 06/26/21 Rx injection solution (Novolin R #120 ml MDD 400 units Regular U-100 Insulin) insulin syringe-needle U-100 1 mL #180 ea 07/23/20 06/25/21 Rx 30 gauge x 1/2" (BD Insulin Syringe Ultra-Fine) irbesartan 150 mg tablet See Rx Instructions .ROUTE 02/10/21 06/26/21 Rx .COMPLEX #30 tab metformin 500 mg tablet,extended See Rx Instructions .ROUTE 02/10/21 06/26/21 Rx release 24 hr .COMPLEX #60 tab torsemide 20 mg tablet See Rx Instructions .ROUTE 02/10/21 06/26/21 Rx .COMPLEX #30 tab Past Med/Surg History Medical History (Reviewed 06/26/21 @ 11:07 by Wolfgang [facility]) Anemia hx Chronic back pain Chronic venous insufficiency Diabetes Type 2 - IDDM Edema Hypertension Nocturnal hypoxemia Open wound of right lower extremity with complication on abx therapy -- Dr. 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 Hx of colonoscopy S/P foot surgery, right S/P lymph node biopsy needle aspiration Family History Father Acute myocardial infarction Alcohol abuse Tobacco use Diabetes Myocardial infarction Mother Brain cancer Social History Smoking Status: Never smoker Second Hand Exposure: No; Do You Dip or Chew Tobacco: No; Tobacco Cessation Education Requested by Patient: No Hx Alcohol Use: No Hx Substance Use: No Preferred Language: Cambodian Communication Ability: Effective Visual Impairment: No Limitations Hearing Ability: Normal Stock Dealer Required: No Beliefs That Will Affect Care: None marital status: single Current Living Situation: Other current occupational status: employed and unemployed How many Children do You have: 0 Other Information That Helps Us Care for You: No Feels Safe at Home: No Is there a partner from a previous relationship who is making you feel unsafe now?: No Any Concerns about Your Family Situation: No Would You Like to Speak to Someone About Your Situation: No caffeine: Yes during the past year weight has: remained stable Dental Care, Regularly: No Physical Activity Frequency: 1-2 Times per Week Physical Activity Frequency Comment: walks in the summertime Seatbelt Use: never Sunscreen Use: No Assistive Devices: None Review of Systems Review of Systems: All systems reviewed & are unremarkable except as noted in HPI & below Physical Exam Constitutional: + not well nourished and no acute distress ENMT: Mouth: + tongue abnormality (Multiple crusted sores) Respiratory: normal respiratory effort, lungs clear to auscultation Cardiovascular: Rate/Rhythm: regular rate and regular rhythm Extremities: + pedal edema (3+ equal b/l) Gastrointestinal (Abdomen): normal bowel sounds, soft, nontender, no hepatosplenomegaly Musculoskeletal: no cyanosis or clubbing, extremities motor strength 5/5 Extremities: + petechiae (Head, abdomen and bilateral lower extremities) Neurologic: moves all extremities and awake; not confused Psychiatric: A+Ox3, euthymic affect Results & Data Results & Data ([facility]) Vital Signs (Past 12 Hours) Vital Signs Temp Pulse Pulse Resp BP BP Pulse Ox 06/26/21 10:00 72 20 149/58 H 95 06/26/21 08:50 36.6 C 93 H 18 168/76 H 93 Diagnostic Findings XR chest 1V portable CLINICAL HISTORY: ITP ?pneumonia TECHNIQUE: Single frontal radiograph of the chest was obtained. Comparison: Comparison is made to chest 2 views 01/24/2020 FINDINGS: Exam is limited by underpenetration. Cardiomegaly is noted. Lungs are underinflated but clear. No evidence of pleural effusion or pneumothorax. IMPRESSION: No acute chest disease. CT head/brain wo con CLINICAL HISTORY: ro ich Technique: Contiguous axial CT images of the head were acquired from the base of the skull to the vertex without intravenous contrast administration. Images were viewed in brain, subdural and bone windows. Automated dose lowering techniques and/or adjustment according to patient size were utilized for this exam. Comparison: None available at the time of this dictation. Findings: The ventricles, basal cisterns, and cerebral sulci are normal. There is no acute intracranial hemorrhage or evidence of acute territorial infarction. Neither mass effect, shift of the midline structures, nor abnormal extra-axial fluid collections are shown. Imaged portions of the paranasal sinuses and mastoid air cells are clear. The orbits appear normal. There are no acute fractures of the calvaria or scalp swelling. Impression: No acute intracranial hemorrhage, no evidence of acute territorial infarction or other acute intracranial disease process. Medications Administered ER medications given: IVIG 150 g Dexamethasone 40 mg Diphenhydramine 25 mg Acetaminophen 650 mg 2 units platelets ECG Indication: other (Thrombocytopenia) Rate (beats per minute): 82 Rhythm: normal sinus Findings: + 1st degree AV block and + PAC Comparison ECG Date: from (01/30/2020) Change: the following changes noted (Septal infarct is now present) Code Status & VTE Plan Code Status Full VTE Prophylaxis Plan VTE Prophylaxis will be ordered: No Reason for no VTE drug order: Contraindicated PG Care Time/CCT Total # of Minutes Spent Total Time Spent with Patient: Total time spent is greater than 50% in coordination of care (as documented) at patient's floor/unit and/or counseling patient: Coding Level of Care Code 72671 Initial Inpt Care Lvl 3 Diagnoses Thrombocytopenia D69.6 Diabetes E11.8 Diabetes mellitus complication status: with unspecified complications Diabetes mellitus termite control service representative insulin use: without mcfp use Diabetes mellitus type: type 2 Severe obstructive sleep apnea G47.33 Hypertension I10 Hypertension type: essential hypertension Venous stasis ulcer of left lower extremity I83.029; L97.929 (1) Diabetes Diabetes mellitus complication status: with unspecified complications Diabetes mellitus termite control service representative insulin use: without termite control service representative use Diabetes mellitus type: type 2 Qualified Code(s): E11.8 - Type 2 diabetes mellitus with unspecified complications (2) Hypertension Hypertension type: essential hypertension Qualified Code(s): I10 - Essential (primary) hypertension
[2021-06-26] MEDS ORDERED: dexAMETHasone 40 MG in DEXTROSE 5% 25 ML IV STA (11:13)
[2021-06-26] MEDS ORDERED: PHARMACY GLYCEMIC MGMT CONSULT PRN ×2 (11:35→16:20)
[2021-06-26] MEDS ORDERED: DEXTROSE 50% 50 ML SYRINGE IV PRN (12:00)
[2021-06-26] MEDS ORDERED: GLUCOSE 10 TABS/TUBE PO PRN (12:00)
[2021-06-26] MEDS ORDERED: GLUCAGON FOR INJ 1 MG VIAL IM PRN (12:00)
[2021-06-26] MEDS ORDERED: CARBOHYDRATES FOR HYPOGLYCEMIA PO PRN (12:00)
[2021-06-26] MEDS ORDERED: INSULIN HUMAN NPH SC ONE ×3 (12:00→21:45)
[2021-06-26] MEDS ORDERED: GLUCOSE 40% GEL 15 GM TUBE PO PRN (12:00)
[2021-06-26] MEDS ORDERED: FAMOTIDINE 20MG/5ML IV PUSH IV STA (12:03)
--- NOTE | 2021-06-26 12:22 | Pharmacy Report ---
Pharmacy Glycemic Short Note 2 - Date of Service June 26, 2021 - Glycemic Short BSG Results (Last 24 hours): 06/26/21 09:25 Glucose 286 H OUTPATIENT ANTIDIABETIC REGIMEN: * NPH 100 units w/ breakfast + 100units w/ dinner * Regular 100 units w/ breakfast + 100 units w/ dinner * A1c = ? ASSESSMENT: * Type 2 diabetic admitted for severe thrombocytopenia, epistaxis, bruising, and mouth ulcers; concern for ITP * Patient will be receiving high dose dexamethasone IV as well as IVIG. * Patient states he uses high doses of insulin in the outpt setting (~400 units/day) and he has not receive any insulin today. He does state he would be concerned with using these same doses while hospitalized as his diet will be much different. BSGs in 200s thus far. * Will proceed with giving him NPH and Novolog STAT. Will continue to give him NPH BID. Suspect he will require a larger NPH dose in the AM with IV steroid. Will use Novolog instead for bolus doses with initial CF and CR based upon out-pt needs PLAN FOR INPATIENT GLYCEMIC CONTROL: * Hold outpatient oral diabetes medications * Basal insulin * NPH 100 units SQ STAT, then scaled dose NPH with dinner today. Reassess needs tomorrow * Bolus insulin * NovoLog per scale ACHS or Q6hrs while NPO * Goal Range: Low 110 mg/dL - High 140 mg/dL * Correction Factor: 10 mg/dL/unit * Nutritional / Prandial insulin per carb ratio of 1 unit per 2.5 grams CHO consumed PLAN FOR DISCHARGE: * to be determined
--- NOTE | 2021-06-26 12:26 | XRay Report ---
XR chest 1V portable CLINICAL HISTORY: ITP ?pneumonia TECHNIQUE: Single frontal radiograph of the chest was obtained. Comparison: Comparison is made to chest 2 views 01/24/2020 FINDINGS: Exam is limited by underpenetration. Cardiomegaly is noted. Lungs are underinflated but clear. No hubert dence of pleural effusion or pneumothorax. IMPRESSION: No acute chest disease. ACT 112: Negative or not required by law. Electronically signed by: Antonio Correa M.D. 06/26/2021 12:24 PM
[2021-06-26] MEDS: IMMUN GLOBG(IGG)/MALT/IGA OV50 100 ML IV SCH ×8 (12:39→23:59)
[2021-06-26 12:46] LABS: Estimated Average Glucose 148 mg/dl; Hemoglobin A1C 6.8 % (4.5-5.6)
[2021-06-26] MEDS: INSULIN ASPART PER UNIT SC SCH ×3 (14:05→22:01)
--- NOTE | 2021-06-26 15:10 | Electrocardiogram Report ---
Test Reason : Blood Pressure : / mmHG Vent. Rate : 082 BPM Atrial Rate : 079 BPM P-R Int : 000 ms QRS Dur : 108 ms QT Int : 370 ms P-R-T Axes : 000 055 026 degrees QTc Int : 432 ms Normal sinus rhythm with 1st degree A-V block Premature atrial complexes Incomplete right bundle branch block Septal infarct , age undetermined Abnormal ECG When compared with ECG of 30-JAN-2020 07:09, Atrial fibrillation has replaced Sinus rhythm Septal infarct is now Present Confirmed by Michael Heard ([id number]) on 06/26/2021 3:09:56 PM Referred By: Confirmed By:Michael Heard
[2021-06-26] MEDS ORDERED: ACETAMINOPHEN 325 MG TAB PO PRN ×2 (16:20)
[2021-06-26] MEDS ORDERED: ONDANSETRON INJ 2 MG/ML 2 ML VIAL IV PRN (16:20)
[2021-06-26] MEDS ORDERED: FUROSEMIDE 40 MG/4 ML VIAL IV STA (17:20)
[2021-06-26] MEDS ORDERED: INSULIN PROTOCOL GOAL RANGE ONE (18:52)
[2021-06-26] MEDS ORDERED: STAT IV Infusion **Titration per Protocol STA (18:52)
[2021-06-26] MEDS ORDERED: NovoLIN-R BOLUS FROM BAG IV ONE ×2 (19:00→20:15)
[2021-06-26] MEDS ORDERED: INSULIN HUMAN REGULAR IV BOLUS 6 UNITS in SYRINGE 0 ML IV ONE ×2 (19:00→20:45)
[2021-06-26 20:32] LABS: Hematocrit (blood only) 34.5 % (42-52); Hemoglobin 11.4 g/dL (14.0-18.0); Mean Corpuscular Hemoglobin 29.6 pg (25-34); Mean Corpuscular Volume 89.6 fL (80-100); Platelet Count 1 K/uL (130-400); RDW Coefficient of Variation 13.3 % (11.5-14.5); RDW Standard Deviation 43.4 fL (36.4-46.3); Red Blood Count 3.85 M/uL (4.7-6.1); White Blood Count 10.38 K/uL (4.8-10.8)
[2021-06-26 20:53] LABS: Basophils # (auto) 0.02 K/uL (0-0.2); Basophils % (auto) 0.2 %; Eosinophils # (auto) 0.01 K/uL (0-0.5); Eosinophils % (auto) 0.1 %; Immature Granulocytes % (auto) 4.8 %; Lymphocytes # (auto) 0.66 K/uL (1.2-3.4); Lymphocytes % (auto) 6.4 %; Monocytes # (auto) 0.19 K/uL (0.11-0.59); Monocytes % (auto) 1.8 %; Neutrophils % (auto) 86.7 %; Platelet Estimate SIGNIFIC DECREASED (Normal)
[2021-06-26] MEDS: INSULIN REGULAR 250 UNITS in SODIUM CHLORIDE 0.9% 247.5 ML IV SCH (20:58)
[2021-06-26] MEDS: FAMOTIDINE 20MG IV PUSH 20 MG/5 ML SYR IV SCH (22:45)
[2021-06-27] MEDS ORDERED: INSULIN ASPART PER UNIT SC SCH
[2021-06-27] MEDS: IMMUN GLOBG(IGG)/MALT/IGA OV50 100 ML IV SCH ×18 (01:19→22:42)
[2021-06-27] MEDS: FAMOTIDINE 20MG IV PUSH 20 MG/5 ML SYR IV SCH ×2 (08:14→21:27)
[2021-06-27] MEDS: IRBESARTAN 150 MG TAB PO SCH (08:15)
[2021-06-27] MEDS: TORSEMIDE 20 MG TAB PO SCH (08:15)
[2021-06-27] MEDS: INSULIN ASPART PER UNIT SC SCH ×5 (08:20→21:59)
[2021-06-27 08:29] LABS: BUN Creatinine Ratio 28.2 (10-20); Calcium 8.5 mg/dl (8.5-10.1); Creatinine Clr Calc Pharmacy 101.4 ml/min; Est GFR (African American) 74.5 ml/min; Est GFR (Non-African American) 64.3 ml/min; Potassium 3.9 mmol/L (3.5-5.1)
[2021-06-27 08:42] LABS: Hematocrit (blood only) 31.2 % (42-52); Hemoglobin 10.3 g/dL (14.0-18.0); Mean Corpuscular Hemoglobin 29.6 pg (25-34); Mean Corpuscular Volume 89.7 fL (80-100); Platelet Count 1 K/uL (130-400); RDW Coefficient of Variation 13.3 % (11.5-14.5); RDW Standard Deviation 43.3 fL (36.4-46.3); Red Blood Count 3.48 M/uL (4.7-6.1); White Blood Count 11.03 K/uL (4.8-10.8)
[2021-06-27 08:43] LABS: Basophils # (auto) 0.01 K/uL (0-0.2); Basophils % (auto) 0.1 %; Immature Granulocytes # (auto) 0.14 K/uL (0.00-0.02); Immature Granulocytes % (auto) 1.3 %; Lymphocytes # (auto) 0.92 K/uL (1.2-3.4); Lymphocytes % (auto) 8.3 %; Monocytes # (auto) 0.77 K/uL (0.11-0.59); Neutrophils # (auto) 9.19 K/uL (1.4-6.5); Neutrophils % (auto) 83.3 %; Platelet Estimate SIGNIFIC DECREASED (Normal)
[2021-06-27] MEDS ORDERED: dexAMETHasone 40 MG in SYRINGE 0 ML IV SCH (09:00)
[2021-06-27] MEDS ORDERED: dexAMETHasone 40 MG in DEXTROSE 5% 25 ML IV SCH (09:00)
[2021-06-27] MEDS: PANTOprazole 40 MG TAB PO SCH (09:35)
[2021-06-27] MEDS: INSULIN REGULAR 250 UNITS in SODIUM CHLORIDE 0.9% 247.5 ML IV SCH (10:43)
--- NOTE | 2021-06-27 14:43 | Consultation Report ---
HEMATOLOGY CONSULTATION DATE OF SERVICE: 06/27/2021. REASON FOR CONSULTATION: Severe thrombocytopenia. HISTORY OF PRESENT ILLNESS: The patient is a 60-year-old gentleman who was admitted with severe thrombocytopenia. He had presented to his primary care physician with complaints of epistaxis and mouth ulcers. CBC obtained by his PCP, had revealed severe thrombocytopenia with platelet count of 2000. On arrival to the emergency room, his platelet count was 1000. Case was discussed with me and at that time, I had recommended transfusion with 1 unit of platelets, IVIG and high-dose steroids. I also recommended labs to rule out TTP/HUS. At the time of seeing the patient, he endorses about 2 weeks history of cold/flu symptoms. Also endorses epistaxis and mouth ulcers which he noticed about 2 days ago. He denies hematochezia, hematemesis, prior history of easy bruising or abnormal bleeding. He also denies recent medications, fever, chills, night sweats, palpable lymphadenopathy or any other symptoms. PAST MEDICAL HISTORY: 1. Diabetes mellitus type 2. 2. Chronic venous insufficiency. 3. Right lower extremity ulcer. 4. Obstructive sleep apnea. 5. Osteoarthritis. PAST SURGICAL HISTORY: 1. History of left toe amputation and right toe amputation. 2. History of right foot surgery. MEDICATIONS: Prior to admission: 1. Torsemide. 2. Metformin. 3. Irbesartan. 4. Insulin. ALLERGIES: 1. SULFA DRUGS. 2. BACITRACIN. 3. NEOMYCIN. 4. POLYMYXIN. 5. TRIMETHOPRIM. SOCIAL HISTORY: Denies smoking, alcohol, or illicit drug use. FAMILY HISTORY: Nonsignificant. REVIEW OF SYSTEMS: CONSTITUTIONAL: Denies weight loss, night sweats, fever. EYES: Denies change in vision. ENT: Endorses epistaxis and mouth ulcers. CARDIOVASCULAR: Negative for chest pain, palpitations, dizziness, or diaphoresis. RESPIRATORY: Denies shortness of breath, cough, or hemoptysis. GASTROINTESTINAL: Denies diarrhea, hematemesis, melena, nausea, vomiting or dyspepsia. GENITOURINARY: Negative for urinary frequency, hematuria or dysuria. NEUROLOGIC: Negative for weakness, headaches, dizziness, or seizure activity. LYMPHATICS/HEMATOLOGIC: Positive for petechia. No abnormal bleeding. MUSCULOSKELETAL: He denies joint or back pain. PHYSICAL EXAMINATION: VITAL SIGNS: Blood pressure 104/61, pulse rate 58, respiratory rate 16, temperature 36.5, oxygen sat 95% on room air. CONSTITUTIONAL: Vitals stable. EYES: Without conjunctival erythema or icterus. ENT: Negative for masses. NECK: Negative for masses or palpable lymphadenopathy. RESPIRATORY: Lung sounds which were generally clear bilaterally. CARDIOVASCULAR: Regular rate and rhythm without significant murmur, gallops, or rubs. GASTROINTESTINAL: Abdomen is soft, nontender with normal bowel sounds. No palpable hepatosplenomegaly. LYMPHATIC: No palpable peripheral lymphadenopathy. EXTREMITIES: Positive for petechia. LABORATORY DATA: From 06/27/2021 revealed white cell count of 11,000, hemoglobin of 10.3, hematocrit of 31.2, MCV of 89.7, platelet count of 1000. Chemistry was relatively within normal limits. LDH 260. Haptoglobin pending. Peripheral smear review consult revealed normocytic red blood cells, near total absence of platelets with no blasts or schistocytes seen. IMAGING: CT head on 06/26/2021 revealed no acute intracranial hemorrhage. Chest x-ray on 06/26/2021, revealed no acute chest disease. IMPRESSION: 1. Severe thrombocytopenia with platelet count of 1000, likely due to immune thrombocytopenia. 2. History of upper respiratory viral illness. 3. Chronic lower extremity venous ulcer. 4. Normocytic anemia. A 60-year-old gentleman who was admitted with severe thrombocytopenia. Based on clinical symptoms and labs, presentation is highly suspicious for immune thrombocytopenia. As such, we would recommend treating with dexamethasone 40 mg daily x4 days, IVIG 0.5 g/kg for 2-4 days depending on response. I agree with infectious workup. PLAN: 1. Recommend IVIG 0.5 g/kg x2 to 4 days depending on response. 2. Dexamethasone 40 mg daily x4 days. 3. Please transfuse with another unit of platelets. 4. Agree with infectious workup. 5. Consider checking iron, vitamin B12 and folate levels in setting of normocytic anemia. Thank you for this consult. Hematology will continue following the patient while in the hospital. Please feel free to call if you have any further questions. Job ID: [id number] [facility] HOSPITALMelanie
[2021-06-27] MEDS ORDERED: ACETAMINOPHEN 500 MG TAB PO ONE (14:47)
--- NOTE | 2021-06-27 14:51 | Hospitalist Progress Note ---
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 No evidence of TTP based on peripheral smear review by pathology. s/p 1 unit of platelets, 1mg/kg of IVIG, and dexamethasone 40mg x 1 yesterday. No rise in platelets just yet. I spoke with Dr Gibson from hematology who consulted -- I appreciate her recommendations. * Tx 1 additional unit of platelets today given the severity of his thrombocytopenia and ongoing mucosal bleeding from the mouth (and ?melena stools as well) * IVIG - day #2 today * Cont dexamethasone 40mg IV daily x 4 days * add PPI for GI prophylaxis given the high-dose steroids CBC in am. (2) Diabetes: Plan: HbA1C 6.8%. Now on insulin infusion for optimal control given the high-dose IV steroids. Hold metformin. Appreciate pharmacy providing glycemic control recommendations. (3) Severe obstructive sleep apnea: Plan: Cont BiPAP HS 14/9 (4) Hypertension: Plan: Continue irbesartan 150 mg p.o. daily Continue Torsemide 20 mg p.o. daily Controlled (5) Venous stasis ulcer of left lower extremity: Plan: Formal wound care consult requested. In meantime - aquacel ag to ulcers covered with optifoams. (6) Morbid obesity with BMI of 50.0-59.9, adult: Plan: BMI 54 (7) Anemia: Plan: check Fe studies, b12, folate in am. cbc in am. (8) Melena: Plan: send fecal occult blood. if + there is 1 of 2 possibilities -- first, this could be swallowed blood from the oropharynx as he has had mucosal bleeding over the last few days from the mouth. second, this could be occult GI bleeding in the setting of his low platelets. await the fecal occult. check Fe studies in am. Plan: VTE Prophylaxis - Chemical prophylaxis contraindicated due to thrombocytopenia Admission and Anticipated Discharge Date Admission Date: June 26, 2021 Subjective patient reports that 2 weeks ago he had a respiratory illness - mainly cold symptoms along with multiple ulcers in his mouth and on the tongue. he also has had significant petechiae particularly on his torso. he has multiple ulcers on his shins - L>R - that have had oozing of blood. he denies any prior h/o hematological problems. staff report his lone stool today was black in color. he had noted this color at home as well. no BRBPR. Review of Systems Review of Systems: gen - no fevers or chills; good appetite CV - no cp pulm - no dyspnea GI - no abd pain, nausea, emesis Physical Exam Physical Exam: gen - morbid obesity, NAD skin - severe venous stasis changes b/l legs; severe petechiae on torso/abd wall; multiple ulcerations on L dorman - 2 anteriorly, and 1 posteriorly; no cellulitis just minimal oozing of blood from anterior ulcers mouth - ulcers posterior throat and on tongue; old blood posterior throat neck - no JVD heart - RRR, s1 s2, no murmur lungs - CTA b/l abd - soft, NT, no HSM ext - 1+ edema b/l, pulses 2+ b/l Results & Data Results & Data ([facility]) Vital Signs (Past 12 Hours) Vital Signs Temp Pulse Pulse Resp BP BP Pulse Ox 06/27/21 13:20 36.5 C 57 L 18 108/60 94 06/27/21 11:40 36.5 C 58 L 16 104/61 06/27/21 10:58 36.6 C 52 L 16 116/68 95 06/27/21 10:00 69 06/27/21 07:28 36.4 C L 61 20 164/63 H 94 Laboratory Results Laboratory Results - last 24 hr 06/26/21 06/26/21 06/26/21 09:24 21:57 22:54 WBC RBC Hgb Hct MCV MCH MCHC RDW Std Deviation RDW Coeff of Jeremy Plt Count Immature Gran % (Auto) Neut % (Auto) Lymph % (Auto) [place] % (Auto) Eos % (Auto) Baso % (Auto) Neut # (Auto) Lymph # (Auto) [place] # (Auto) Eos # (Auto) Baso # (Auto) Immature Gran # (Auto) Platelet Estimate Sodium Potassium Chloride Carbon Dioxide Anion Gap BUN Creatinine Est Cr Clr Drug Dosing Est GFR ( Amer) Est GFR (Non-Af Amer) BUN/Creatinine Ratio Glucose POC Glucose 410 H* 421 H* Calcium Blood Type O Positive Antibody Screen NEGATIVE 06/26/21 06/27/21 06/27/21 23:55 00:57 01:58 WBC RBC Hgb Hct MCV MCH MCHC RDW Std Deviation RDW Coeff of Jeremy Plt Count Immature Gran % (Auto) Neut % (Auto) Lymph % (Auto) [place] % (Auto) Eos % (Auto) Baso % (Auto) Neut # (Auto) Lymph # (Auto) [place] # (Auto) Eos # (Auto) Baso # (Auto) Immature Gran # (Auto) Platelet Estimate Sodium Potassium Chloride Carbon Dioxide Anion Gap BUN Creatinine Est Cr Clr Drug Dosing Est GFR ( Amer) Est GFR (Non-Af Amer) BUN/Creatinine Ratio Glucose POC Glucose 394 H* 375 H* 316 H* Calcium Blood Type Antibody Screen 06/27/21 06/27/21 06/27/21 02:58 04:04 05:01 WBC RBC Hgb Hct MCV MCH MCHC RDW Std Deviation RDW Coeff of Jeremy Plt Count Immature Gran % (Auto) Neut % (Auto) Lymph % (Auto) [place] % (Auto) Eos % (Auto) Baso % (Auto) Neut # (Auto) Lymph # (Auto) [place] # (Auto) Eos # (Auto) Baso # (Auto) Immature Gran # (Auto) Platelet Estimate Sodium Potassium Chloride Carbon Dioxide Anion Gap BUN Creatinine Est Cr Clr Drug Dosing Est GFR ( Amer) Est GFR (Non-Af Amer) BUN/Creatinine Ratio Glucose POC Glucose 308 H* 292 H 257 H Calcium Blood Type Antibody Screen 06/27/21 06/27/21 06/27/21 06:03 06:44 06:44 WBC 11.03 H RBC 3.48 L Hgb 10.3 L Hct 31.2 L MCV 89.7 MCH 29.6 MCHC 33.0 RDW Std Deviation 43.3 RDW Coeff of Jeremy 13.3 Plt Count 1 L* Immature Gran % (Auto) 1.3 Neut % (Auto) 83.3 Lymph % (Auto) 8.3 [place] % (Auto) 7.0 Eos % (Auto) 0.0 Baso % (Auto) 0.1 Neut # (Auto) 9.19 H Lymph # (Auto) 0.92 L [place] # (Auto) 0.77 H Eos # (Auto) 0.00 Baso # (Auto) 0.01 Immature Gran # (Auto) 0.14 H Platelet Estimate SIGNIFIC DECREASED Sodium 136 Potassium 3.9 D Chloride 104 Carbon Dioxide 25 Anion Gap 8.0 BUN 35 H Creatinine 1.23 Est Cr Clr Drug Dosing 101.4 Est GFR ( Amer) 74.5 Est GFR (Non-Af Amer) 64.3 BUN/Creatinine Ratio 28.2 H Glucose 140 H POC Glucose 183 H Calcium 8.5 Blood Type Antibody Screen 06/27/21 06/27/21 06/27/21 06:53 08:05 09:09 WBC RBC Hgb Hct MCV MCH MCHC RDW Std Deviation RDW Coeff of Jeremy Plt Count Immature Gran % (Auto) Neut % (Auto) Lymph % (Auto) [place] % (Auto) Eos % (Auto) Baso % (Auto) Neut # (Auto) Lymph # (Auto) [place] # (Auto) Eos # (Auto) Baso # (Auto) Immature Gran # (Auto) Platelet Estimate Sodium Potassium Chloride Carbon Dioxide Anion Gap BUN Creatinine Est Cr Clr Drug Dosing Est GFR ( Amer) Est GFR (Non-Af Amer) BUN/Creatinine Ratio Glucose POC Glucose 151 H 128 H 180 H Calcium Blood Type Antibody Screen 06/27/21 06/27/21 06/27/21 10:12 11:17 12:15 WBC RBC Hgb Hct MCV MCH MCHC RDW Std Deviation RDW Coeff of Jeremy Plt Count Immature Gran % (Auto) Neut % (Auto) Lymph % (Auto) [place] % (Auto) Eos % (Auto) Baso % (Auto) Neut # (Auto) Lymph # (Auto) [place] # (Auto) Eos # (Auto) Baso # (Auto) Immature Gran # (Auto) Platelet Estimate Sodium Potassium Chloride Carbon Dioxide Anion Gap BUN Creatinine Est Cr Clr Drug Dosing Est GFR ( Amer) Est GFR (Non-Af Amer) BUN/Creatinine Ratio Glucose POC Glucose 180 H 153 H 128 H Calcium Blood Type Antibody Screen 06/27/21 06/27/21 06/27/21 13:16 14:21 15:08 WBC RBC Hgb Hct MCV MCH MCHC RDW Std Deviation RDW Coeff of Jeremy Plt Count Immature Gran % (Auto) Neut % (Auto) Lymph % (Auto) [place] % (Auto) Eos % (Auto) Baso % (Auto) Neut # (Auto) Lymph # (Auto) [place] # (Auto) Eos # (Auto) Baso # (Auto) Immature Gran # (Auto) Platelet Estimate Sodium Potassium Chloride Carbon Dioxide Anion Gap BUN Creatinine Est Cr Clr Drug Dosing Est GFR ( Amer) Est GFR (Non-Af Amer) BUN/Creatinine Ratio Glucose POC Glucose 140 H 141 H 164 H Calcium Blood Type Antibody Screen 06/27/21 06/27/21 06/27/21 16:08 17:08 18:18 WBC RBC Hgb Hct MCV MCH MCHC RDW Std Deviation RDW Coeff of Jeremy Plt Count Immature Gran % (Auto) Neut % (Auto) Lymph % (Auto) [place] % (Auto) Eos % (Auto) Baso % (Auto) Neut # (Auto) Lymph # (Auto) [place] # (Auto) Eos # (Auto) Baso # (Auto) Immature Gran # (Auto) Platelet Estimate Sodium Potassium Chloride Carbon Dioxide Anion Gap BUN Creatinine Est Cr Clr Drug Dosing Est GFR ( Amer) Est GFR (Non-Af Amer) BUN/Creatinine Ratio Glucose POC Glucose 133 H 151 H 222 H Calcium Blood Type Antibody Screen 06/27/21 06/27/21 06/27/21 19:28 20:27 21:33 WBC RBC Hgb Hct MCV MCH MCHC RDW Std Deviation RDW Coeff of Jeremy Plt Count Immature Gran % (Auto) Neut % (Auto) Lymph % (Auto) [place] % (Auto) Eos % (Auto) Baso % (Auto) Neut # (Auto) Lymph # (Auto) [place] # (Auto) Eos # (Auto) Baso # (Auto) Immature Gran # (Auto) Platelet Estimate Sodium Potassium Chloride Carbon Dioxide Anion Gap BUN Creatinine Est Cr Clr Drug Dosing Est GFR ( Amer) Est GFR (Non-Af Amer) BUN/Creatinine Ratio Glucose POC Glucose 189 H 187 H 163 H Calcium Blood Type Antibody Screen PG Care Time/CCT Total # of Minutes Spent Total Time Spent with Patient: Total time spent is greater than 50% in coordination of care (as documented) at patient's floor/unit and/or counseling patient: Coding Level of Care Code 71134 Subseq Hosp Care Lvl 3 Diagnoses Diabetes E11.8 Diabetes mellitus type: type 2 Diabetes mellitus fdc insulin use: without fdc use Diabetes mellitus complication status: with unspecified complications Severe obstructive sleep apnea G47.33 Hypertension I10 Hypertension type: essential hypertension Venous stasis ulcer of left lower extremity I83.029; L97.929 Acute ITP D69.3 Morbid obesity with BMI of 50.0-59.9, adult E66.01; Z68.43 Anemia D64.9 Melena K92.1 (1) Diabetes Diabetes mellitus type: type 2 Diabetes mellitus termite treater insulin use: without termite treater use Diabetes mellitus complication status: with unspecified complications Qualified Code(s): E11.8 - Type 2 diabetes mellitus with unspecified complications (2) Hypertension Hypertension type: essential hypertension Qualified Code(s): I10 - Essential (primary) hypertension
[2021-06-27] MEDS: diphenhydrAMINE Capsule 25 MG CAP PO PRN (16:14)
[2021-06-27] MEDS ORDERED: INSULIN HUMAN NPH SC ONE (17:00)
[2021-06-27] MEDS: diphenhydrAMINE 50 MG/ML VIAL IV PRN (21:26)
[2021-06-28] MEDS: INSULIN REGULAR 250 UNITS in SODIUM CHLORIDE 0.9% 247.5 ML IV SCH ×3 (02:42→15:20)
[2021-06-28] MEDS ORDERED: INSULIN HUMAN NPH SC ONE (08:00)
[2021-06-28] MEDS: PANTOprazole 40 MG TAB PO SCH (08:02)
[2021-06-28] MEDS: IRBESARTAN 150 MG TAB PO SCH (08:03)
[2021-06-28] MEDS: TORSEMIDE 20 MG TAB PO SCH (08:03)
[2021-06-28] MEDS: INSULIN ASPART PER UNIT SC SCH ×4 (08:11→21:50)
[2021-06-28] MEDS: FAMOTIDINE 20MG IV PUSH 20 MG/5 ML SYR IV SCH ×2 (08:12→21:44)
[2021-06-28] MEDS: diphenhydrAMINE 50 MG/ML VIAL IV PRN (08:12)
[2021-06-28 08:40] LABS: Basophils # (auto) 0.01 K/uL (0-0.2); Basophils % (auto) 0.1 %; Hemoglobin 10.2 g/dL (14.0-18.0); Immature Granulocytes # (auto) 0.26 K/uL (0.00-0.02); Lymphocytes # (auto) 1.23 K/uL (1.2-3.4); Lymphocytes % (auto) 9.6 %; Mean Corpuscular Hemoglobin 29.6 pg (25-34); Mean Corpuscular Hgb Conc 32.9 g/dL (32-36); Mean Corpuscular Volume 89.9 fL (80-100); Monocytes # (auto) 0.81 K/uL (0.11-0.59); Monocytes % (auto) 6.3 %; Neutrophils # (auto) 10.55 K/uL (1.4-6.5); Platelet Count 10 K/uL (130-400); RDW Coefficient of Variation 13.5 % (11.5-14.5); RDW Standard Deviation 44.3 fL (36.4-46.3); Red Blood Count 3.45 M/uL (4.7-6.1); White Blood Count 12.86 K/uL (4.8-10.8)
[2021-06-28 08:44] LABS: BUN Creatinine Ratio 31.4 (10-20); Calcium 8.4 mg/dl (8.5-10.1); Creatinine Clr Calc Pharmacy 116.8 ml/min; Est GFR (African American) 89.2 ml/min; Potassium 4.1 mmol/L (3.5-5.1)
[2021-06-28] MEDS ORDERED: INSULIN HUMAN NPH SC SCH (08:45)
[2021-06-28 08:49] LABS: Ferritin 170.1 ng/ml (8-388)
[2021-06-28 09:17] LABS: Folate (Folic Acid) 11.5 ng/ml (>5.38)
--- NOTE | 2021-06-28 14:01 | Pharmacy Report ---
Pharmacy Glycemic Short Note 2 - Date of Service June 28, 2021 - Glycemic Short BSG Results (Last 24 hours): 06/27/21 06/27/21 06/27/21 14:21 15:08 16:08 Glucose POC Glucose 141 H 164 H 133 H 06/27/21 06/27/21 06/27/21 17:08 18:18 19:28 Glucose POC Glucose 151 H 222 H 189 H 06/27/21 06/27/21 06/27/21 20:27 21:33 22:25 Glucose POC Glucose 187 H 163 H 141 H 06/27/21 06/28/21 06/28/21 23:25 00:34 01:27 Glucose POC Glucose 127 H 120 H 106 H 06/28/21 06/28/21 06/28/21 01:46 02:01 02:03 Glucose POC Glucose 102 H 121 H 125 H 06/28/21 06/28/21 06/28/21 02:29 03:48 04:43 Glucose POC Glucose 153 H 175 H 190 H 06/28/21 06/28/21 06/28/21 05:51 06:40 07:51 Glucose 150 H POC Glucose 183 H 167 H 06/28/21 06/28/21 06/28/21 08:01 09:12 10:15 Glucose POC Glucose 148 H 184 H 149 H 06/28/21 06/28/21 06/28/21 11:12 12:31 13:14 Glucose POC Glucose 128 H 128 H 142 H OUTPATIENT ANTIDIABETIC REGIMEN: * NPH 100 units w/ breakfast + 100units w/ dinner * Regular 100 units w/ breakfast + 100 units w/ dinner * HbA1c = 6.8% (06/26/21) ASSESSMENT: 06/28: * Patient remains on insulin drip - currently running at 5.4 units/hr. * Received 70 units NPH + 45 units Novolog yesterday in addition to the drip to cover meals and steroids. * Pending order remains in place for patient to come off drip * Increasing NPH to 70 units BIDM today * Today is day #3/5 of Dexamethasone 40 mg IV. * Hopeful that increased NPH dosing will allow drip rate to decrease. * Goal range on drip was changed to 140-180 mg/dL last evening as patient reports symptomatic hypoglycemia with BSGs < 110 mg/dL. 06/26: * Type 2 diabetic admitted for severe thrombocytopenia, epistaxis, bruising, and mouth ulcers; concern for ITP * Patient will be receiving high dose dexamethasone IV as well as IVIG. * Patient states he uses high doses of insulin in the outpt setting (~400 units/day) and he has not receive any insulin today. He does state he would be concerned with using these same doses while hospitalized as his diet will be much different. BSGs in 200s thus far. * Will proceed with giving him NPH and Novolog STAT. Will continue to give him NPH BID. Suspect he will require a larger NPH dose in the AM with IV steroid. Will use Novolog instead for bolus doses with initial CF and CR based upon out-pt needs PLAN FOR INPATIENT GLYCEMIC CONTROL: * IV insulin infusion - current rate = 5.4 units per hour * May d/c drip if BSG < 180 mg/dL x 2 consecutive checks AND drip rate 3 units/hr or less * Basal insulin * NPH 70 units SC BIDM * Bolus insulin * Per insulin infusion calculator PLAN FOR DISCHARGE: * HbA1c was 6.8% from this admission. No changes necessary to home regimen upon discharge.
[2021-06-28] MEDS: INSULIN HUMAN NPH SC SCH (17:16)
--- NOTE | 2021-06-28 21:20 | Hospitalist Progress Note ---
Date of Service June 28, 2021 Assessment & Plan (1) Acute ITP: Plan: Clinical picture most c/w ITP. No evidence of TTP based on peripheral smear review by pathology. s/p 1 unit of platelets, 1mg/kg of IVIG, and dexamethasone 40mg on 06/26. s/p additional unit of platelets, 0.5mg/kg IVIG, and 40mg dexamethasone on 06/27. Platelets today 10. s/p additional 40mg of dexamethasone today. will receive 4th dose of dexamethasone tomorrow. No rise in platelets just yet. Appreciate Dr Gibson's hematology consultation and recommendations. CBC in am. (2) Diabetes: Plan: HbA1C 6.8%. Now on insulin infusion for optimal control given the high-dose IV steroids. Hold metformin. Appreciate pharmacy providing glycemic control recommendations. (3) Severe obstructive sleep apnea: Plan: Cont BiPAP HS 31/03 (4) Hypertension: Plan: Continue irbesartan 150 mg p.o. daily Continue Torsemide 20 mg p.o. daily Controlled (5) Venous stasis ulcer of left lower extremity: Plan: Formal wound care consult requested. Likely will be seen on Tuesday. In meantime - formerly [place] [facility] ag to ulcers covered with optifoams. (6) Morbid obesity with BMI of 50.0-59.9, adult: Plan: BMI 54 (7) Anemia: Plan: Fe studies, b12, folate all wnl. due to recent presumed viral infection? cbc in am. (8) Melena: Plan: send fecal occult blood. if + there is 1 of 2 possibilities -- first, this could be swallowed blood from the oropharynx as he has had mucosal bleeding over the last few days from the mouth. second, this could be occult GI bleeding in the setting of his low platelets. await the fecal occult. Fe studies do not suggest chronic GI blood loss. Plan: VTE Prophylaxis - Chemical prophylaxis contraindicated due to thrombocytopenia overall progressing Admission and Anticipated Discharge Date Admission Date: June 26, 2021 Subjective no events overnight he feels well no further mouth bleeding no further bleeding from LLE dorman ulcers his petechiae on the abd wall are improving eating well no dyspnea remains on insulin drip Review of Systems Review of Systems: gen - no fevers or chills HENT - no epistaxis cv - no chest pain pulm - no cough/congestion Physical Exam Physical Exam: gen - morbid obesity, NAD skin - severe venous stasis changes b/l legs; severe petechiae on torso/abd wall; multiple ulcerations on L dorman - covered w/ optifoams mouth - ulcers on tongue improving heart - RRR, s1 s2, no murmur lungs - CTA b/l abd - soft, NT, no HSM ext - 1+ edema b/l, pulses 2+ b/l Results & Data Results & Data ([facility]) Vital Signs (Past 12 Hours) Vital Signs Temp Pulse Pulse Resp BP BP Pulse Ox 06/28/21 19:40 36.4 C L 48 L 18 159/65 H 94 06/28/21 15:00 45 L 06/28/21 14:52 36.4 C L 51 L 18 132/58 L 94 06/28/21 11:15 36.4 C L 48 L 18 126/66 93 Laboratory Results Laboratory Results - last 24 hr 06/27/21 06/27/21 06/27/21 21:33 22:25 23:25 WBC RBC Hgb Hct MCV MCH MCHC RDW Std Deviation RDW Coeff of Jeremy Plt Count Immature Gran % (Auto) Neut % (Auto) Lymph % (Auto) [place] % (Auto) Eos % (Auto) Baso % (Auto) Neut # (Auto) Lymph # (Auto) [place] # (Auto) Eos # (Auto) Baso # (Auto) Immature Gran # (Auto) Sodium Potassium Chloride Carbon Dioxide Anion Gap BUN Creatinine Est Cr Clr Drug Dosing Est GFR ( Amer) Est GFR (Non-Af Amer) BUN/Creatinine Ratio Glucose POC Glucose 163 H 141 H 127 H Calcium Iron Transferrin Transferrin % Sat Ferritin Vitamin B12 Folate CMV IgM Ab 06/28/21 06/28/21 06/28/21 00:34 01:27 01:46 WBC RBC Hgb Hct MCV MCH MCHC RDW Std Deviation RDW Coeff of Jeremy Plt Count Immature Gran % (Auto) Neut % (Auto) Lymph % (Auto) [place] % (Auto) Eos % (Auto) Baso % (Auto) Neut # (Auto) Lymph # (Auto) [place] # (Auto) Eos # (Auto) Baso # (Auto) Immature Gran # (Auto) Sodium Potassium Chloride Carbon Dioxide Anion Gap BUN Creatinine Est Cr Clr Drug Dosing Est GFR ( Amer) Est GFR (Non-Af Amer) BUN/Creatinine Ratio Glucose POC Glucose 120 H 106 H 102 H Calcium Iron Transferrin Transferrin % Sat Ferritin Vitamin B12 Folate CMV IgM Ab 06/28/21 06/28/21 06/28/21 02:01 02:03 02:29 WBC RBC Hgb Hct MCV MCH MCHC RDW Std Deviation RDW Coeff of Jeremy Plt Count Immature Gran % (Auto) Neut % (Auto) Lymph % (Auto) [place] % (Auto) Eos % (Auto) Baso % (Auto) Neut # (Auto) Lymph # (Auto) [place] # (Auto) Eos # (Auto) Baso # (Auto) Immature Gran # (Auto) Sodium Potassium Chloride Carbon Dioxide Anion Gap BUN Creatinine Est Cr Clr Drug Dosing Est GFR ( Amer) Est GFR (Non-Af Amer) BUN/Creatinine Ratio Glucose POC Glucose 121 H 125 H 153 H Calcium Iron Transferrin Transferrin % Sat Ferritin Vitamin B12 Folate CMV IgM Ab 06/28/21 06/28/21 06/28/21 03:48 04:43 05:51 WBC RBC Hgb Hct MCV MCH MCHC RDW Std Deviation RDW Coeff of Jeremy Plt Count Immature Gran % (Auto) Neut % (Auto) Lymph % (Auto) [place] % (Auto) Eos % (Auto) Baso % (Auto) Neut # (Auto) Lymph # (Auto) [place] # (Auto) Eos # (Auto) Baso # (Auto) Immature Gran # (Auto) Sodium Potassium Chloride Carbon Dioxide Anion Gap BUN Creatinine Est Cr Clr Drug Dosing Est GFR ( Amer) Est GFR (Non-Af Amer) BUN/Creatinine Ratio Glucose POC Glucose 175 H 190 H 183 H Calcium Iron Transferrin Transferrin % Sat Ferritin Vitamin B12 Folate CMV IgM Ab 06/28/21 06/28/21 06/28/21 06:40 07:51 07:51 WBC 12.86 H RBC 3.45 L Hgb 10.2 L Hct 31.0 L MCV 89.9 MCH 29.6 MCHC 32.9 RDW Std Deviation 44.3 RDW Coeff of Jeremy 13.5 Plt Count 10 L* D Immature Gran % (Auto) 2.0 Neut % (Auto) 82.0 Lymph % (Auto) 9.6 [place] % (Auto) 6.3 Eos % (Auto) 0.0 Baso % (Auto) 0.1 Neut # (Auto) 10.55 H Lymph # (Auto) 1.23 [place] # (Auto) 0.81 H Eos # (Auto) 0.00 Baso # (Auto) 0.01 Immature Gran # (Auto) 0.26 H Sodium 136 Potassium 4.1 Chloride 104 Carbon Dioxide 25 Anion Gap 7.0 BUN 33 H Creatinine 1.06 Est Cr Clr Drug Dosing 116.8 Est GFR ( Amer) 89.2 Est GFR (Non-Af Amer) 77.0 BUN/Creatinine Ratio 31.4 H Glucose 150 H POC Glucose 167 H Calcium 8.4 L Iron 76 Transferrin 222 Transferrin % Sat 24 Ferritin 170.1 Vitamin B12 Folate CMV IgM Ab 06/28/21 06/28/21 06/28/21 07:51 07:51 08:01 WBC RBC Hgb Hct MCV MCH MCHC RDW Std Deviation RDW Coeff of Jeremy Plt Count Immature Gran % (Auto) Neut % (Auto) Lymph % (Auto) [place] % (Auto) Eos % (Auto) Baso % (Auto) Neut # (Auto) Lymph # (Auto) [place] # (Auto) Eos # (Auto) Baso # (Auto) Immature Gran # (Auto) Sodium Potassium Chloride Carbon Dioxide Anion Gap BUN Creatinine Est Cr Clr Drug Dosing Est GFR ( Amer) Est GFR (Non-Af Amer) BUN/Creatinine Ratio Glucose POC Glucose 148 H Calcium Iron Transferrin Transferrin % Sat Ferritin Vitamin B12 501 Folate 11.50 CMV IgM Ab Pending 06/28/21 06/28/21 06/28/21 09:12 10:15 11:12 WBC RBC Hgb Hct MCV MCH MCHC RDW Std Deviation RDW Coeff of Jeremy Plt Count Immature Gran % (Auto) Neut % (Auto) Lymph % (Auto) [place] % (Auto) Eos % (Auto) Baso % (Auto) Neut # (Auto) Lymph # (Auto) [place] # (Auto) Eos # (Auto) Baso # (Auto) Immature Gran # (Auto) Sodium Potassium Chloride Carbon Dioxide Anion Gap BUN Creatinine Est Cr Clr Drug Dosing Est GFR ( Amer) Est GFR (Non-Af Amer) BUN/Creatinine Ratio Glucose POC Glucose 184 H 149 H 128 H Calcium Iron Transferrin Transferrin % Sat Ferritin Vitamin B12 Folate CMV IgM Ab 06/28/21 06/28/21 06/28/21 12:31 13:14 14:21 WBC RBC Hgb Hct MCV MCH MCHC RDW Std Deviation RDW Coeff of Jeremy Plt Count Immature Gran % (Auto) Neut % (Auto) Lymph % (Auto) [place] % (Auto) Eos % (Auto) Baso % (Auto) Neut # (Auto) Lymph # (Auto) [place] # (Auto) Eos # (Auto) Baso # (Auto) Immature Gran # (Auto) Sodium Potassium Chloride Carbon Dioxide Anion Gap BUN Creatinine Est Cr Clr Drug Dosing Est GFR ( Amer) Est GFR (Non-Af Amer) BUN/Creatinine Ratio Glucose POC Glucose 128 H 142 H 188 H Calcium Iron Transferrin Transferrin % Sat Ferritin Vitamin B12 Folate CMV IgM Ab 06/28/21 06/28/21 06/28/21 15:17 16:23 17:11 WBC RBC Hgb Hct MCV MCH MCHC RDW Std Deviation RDW Coeff of Jeremy Plt Count Immature Gran % (Auto) Neut % (Auto) Lymph % (Auto) [place] % (Auto) Eos % (Auto) Baso % (Auto) Neut # (Auto) Lymph # (Auto) [place] # (Auto) Eos # (Auto) Baso # (Auto) Immature Gran # (Auto) Sodium Potassium Chloride Carbon Dioxide Anion Gap BUN Creatinine Est Cr Clr Drug Dosing Est GFR ( Amer) Est GFR (Non-Af Amer) BUN/Creatinine Ratio Glucose POC Glucose 189 H 175 H 163 H Calcium Iron Transferrin Transferrin % Sat Ferritin Vitamin B12 Folate CMV IgM Ab 06/28/21 06/28/21 06/28/21 18:14 19:11 20:21 WBC RBC Hgb Hct MCV MCH MCHC RDW Std Deviation RDW Coeff of Jeremy Plt Count Immature Gran % (Auto) Neut % (Auto) Lymph % (Auto) [place] % (Auto) Eos % (Auto) Baso % (Auto) Neut # (Auto) Lymph # (Auto) [place] # (Auto) Eos # (Auto) Baso # (Auto) Immature Gran # (Auto) Sodium Potassium Chloride Carbon Dioxide Anion Gap BUN Creatinine Est Cr Clr Drug Dosing Est GFR ( Amer) Est GFR (Non-Af Amer) BUN/Creatinine Ratio Glucose POC Glucose 210 H 193 H 157 H Calcium Iron Transferrin Transferrin % Sat Ferritin Vitamin B12 Folate CMV IgM Ab PG Care Time/CCT Total # of Minutes Spent Total Time Spent with Patient: Total time spent is greater than 50% in coordination of care (as documented) at patient's floor/unit and/or counseling patient: Coding Level of Care Code 29683 Subseq Hosp Care Lvl 2 Diagnoses Acute ITP D69.3 Diabetes E11.8 Diabetes mellitus complication status: with unspecified complications Diabetes mellitus remote computer terminal operator insulin use: without assisted use Diabetes mellitus type: type 2 Severe obstructive sleep apnea G47.33 Hypertension I10 Hypertension type: essential hypertension Venous stasis ulcer of left lower extremity I83.029; L97.929 Morbid obesity with BMI of 50.0-59.9, adult E66.01; Z68.43 Anemia D64.9 Melena K92.1 (1) Diabetes Diabetes mellitus complication status: with unspecified complications Diabetes mellitus assisted insulin use: without assisted use Diabetes mellitus type: type 2 Qualified Code(s): E11.8 - Type 2 diabetes mellitus with unspecified complications (2) Hypertension Hypertension type: essential hypertension Qualified Code(s): I10 - Essential (primary) hypertension
[2021-06-29] MEDS: INSULIN HUMAN NPH SC SCH ×2 (08:35→17:15)
[2021-06-29] MEDS: INSULIN ASPART PER UNIT SC SCH ×4 (08:40→21:41)
--- NOTE | 2021-06-29 08:40 | Pharmacy Report ---
Pharmacy Glycemic Short Note 2 - Date of Service June 29, 2021 - Glycemic Short BSG Results (Last 24 hours): 06/28/21 06/28/21 06/28/21 07:51 08:01 09:12 Glucose 150 H POC Glucose 148 H 184 H 06/28/21 06/28/21 06/28/21 10:15 11:12 12:31 Glucose POC Glucose 149 H 128 H 128 H 06/28/21 06/28/21 06/28/21 13:14 14:21 15:17 Glucose POC Glucose 142 H 188 H 189 H 06/28/21 06/28/21 06/28/21 16:23 17:11 18:14 Glucose POC Glucose 175 H 163 H 210 H 06/28/21 06/28/21 06/28/21 19:11 20:21 21:32 Glucose POC Glucose 193 H 157 H 142 H 06/28/21 06/28/21 06/28/21 22:47 23:11 23:41 Glucose POC Glucose 109 H 99 108 H 06/29/21 06/29/21 06/29/21 00:31 01:18 02:22 Glucose POC Glucose 124 H 146 H 137 H 06/29/21 06/29/21 06/29/21 03:21 04:14 05:17 Glucose POC Glucose 124 H 129 H 137 H 06/29/21 06/29/21 06:39 07:33 Glucose POC Glucose 130 H 121 H OUTPATIENT ANTIDIABETIC REGIMEN: * NPH 100 units w/ breakfast + 100units w/ dinner * Regular 100 units w/ breakfast + 100 units w/ dinner * HbA1c = 6.8% (06/26/21) ASSESSMENT: 06/29: * Patient met criteria for insulin drip discontinuation this morning as infusion rate was below 2 units/hr with BSG of 121 mg/dL * Day #4 of 5 of dexamethasone 40 mg IV for ITP * Will transition back to SC insulin by continuing previously ordered NPH and adding on tight Novolog parameters * Maintain higher BSG goal range as patient reports symptomatic hypoglycemia with BSG below 110 mg/dL * Will order overnight checks tonight at 00,04 to more closely monitor BSGs in light of recent insulin infusion transition 06/28: * Patient remains on insulin drip - currently running at 5.4 units/hr. * Received 70 units NPH + 45 units Novolog yesterday in addition to the drip to cover meals and steroids. * Pending order remains in place for patient to come off drip * Increasing NPH to 70 units BIDM today * Today is day #3/5 of Dexamethasone 40 mg IV. * Hopeful that increased NPH dosing will allow drip rate to decrease. * Goal range on drip was changed to 140-180 mg/dL last evening as patient reports symptomatic hypoglycemia with BSGs < 110 mg/dL. 06/26: * Type 2 diabetic admitted for severe thrombocytopenia, epistaxis, bruising, and mouth ulcers; concern for ITP * Patient will be receiving high dose dexamethasone IV as well as IVIG. * Patient states he uses high doses of insulin in the outpt setting (~400 units/day) and he has not receive any insulin today. He does state he would be concerned with using these same doses while hospitalized as his diet will be much different. BSGs in 200s thus far. * Will proceed with giving him NPH and Novolog STAT. Will continue to give him NPH BID. Suspect he will require a larger NPH dose in the AM with IV steroid. Will use Novolog instead for bolus doses with initial CF and CR based upon out-pt needs PLAN FOR INPATIENT GLYCEMIC CONTROL: * Discontinue IV insulin infusion * Basal insulin * NPH 70 units SC BIDM * Bolus insulin * ACHS or q6 if NPO * Goal BSG Range: Low 120 mg/dL, High 160 mg/dL * Correction Factor: 10 mg/dL/unit * INS:Carbohydrate ratio = 2 g/unit PLAN FOR DISCHARGE: * HbA1c was 6.8% from this admission. No changes necessary to home regimen upon discharge.
[2021-06-29 08:41] LABS: Hematocrit (blood only) 33.7 % (42-52); Hemoglobin 11.2 g/dL (14.0-18.0); Mean Corpuscular Hemoglobin 29.7 pg (25-34); Mean Corpuscular Volume 89.4 fL (80-100); RDW Coefficient of Variation 13.4 % (11.5-14.5); RDW Standard Deviation 43.4 fL (36.4-46.3); Red Blood Count 3.77 M/uL (4.7-6.1); White Blood Count 14.21 K/uL (4.8-10.8)
[2021-06-29] MEDS: TORSEMIDE 20 MG TAB PO SCH (08:47)
[2021-06-29] MEDS: FAMOTIDINE 20MG IV PUSH 20 MG/5 ML SYR IV SCH ×2 (08:47→21:35)
[2021-06-29] MEDS: IRBESARTAN 150 MG TAB PO SCH (08:47)
[2021-06-29 08:48] LABS: BUN Creatinine Ratio 30.3 (10-20); Basophils # (auto) 0.03 K/uL (0-0.2); Basophils % (auto) 0.2 %; Calcium 8.3 mg/dl (8.5-10.1); Creatinine Clr Calc Pharmacy 109.7 ml/min; Eosinophils # (auto) 0.01 K/uL (0-0.5); Eosinophils % (auto) 0.1 %; Est GFR (African American) 83.5 ml/min; Immature Granulocytes % (auto) 2.8 %; Lymphocytes # (auto) 1.64 K/uL (1.2-3.4); Lymphocytes % (auto) 11.5 %; Mean Corpuscular Hgb Conc 33.2 g/dL (32-36); Monocytes # (auto) 1.19 K/uL (0.11-0.59); Monocytes % (auto) 8.4 %; Neutrophils # (auto) 10.94 K/uL (1.4-6.5); Nucleated RBC # (auto) 0.03 K/uL (0-0); Nucleated RBC % (auto) 0.2 %; Platelet Count 8 K/uL (130-400); Platelet Estimate SIGNIFIC DECREASED (Normal)
[2021-06-29] MEDS: PANTOprazole 40 MG TAB PO SCH (08:48)
[2021-06-29 09:02] LABS: Potassium 4.1 mmol/L (3.5-5.1)
[2021-06-29] MEDS ORDERED: IMMUNE GLOBULIN (HUMAN) SOLN IV ONE (09:42)
[2021-06-29] MEDS ORDERED: ACETAMINOPHEN 500 MG TAB PO ONE (09:43)
[2021-06-29] MEDS ORDERED: Octagam 10% IVIG 5 gram bottle IV ONE (10:30)
[2021-06-29] MEDS: diphenhydrAMINE Capsule 25 MG CAP PO PRN (11:06)
[2021-06-29] MEDS: IMMUN GLOBG(IGG)/MALT/IGA OV50 100 ML IV SCH ×7 (11:30→15:46)
--- NOTE | 2021-06-29 18:39 | Hospitalist Progress Note ---
Date of Service June 29, 2021 Assessment & Plan (1) Acute ITP: Plan: Clinical picture most c/w ITP. No evidence of TTP based on peripheral smear review by pathology. s/p 1 unit of platelets, 1mg/kg of IVIG, and dexamethasone 40mg on 06/26. s/p additional unit of platelets, 0.5mg/kg IVIG, and 40mg dexamethasone on 06/27. s/p 40mg dexamethasone 06/28. Platelets today only 8. Spoke with Dr Gibson - plan final dose of 40mg of dexamethasone today along with 0.5mg/kg of IVIG once again. CBC in am. Appreciate Dr Gibson's hematology consultation and recommendations. (2) Diabetes: Plan: HbA1C 6.8%. Had been on insulin infusion for optimal control given the high-dose IV steroids but now transitioned to SC insulin regimen. Hold metformin. Appreciate pharmacy providing glycemic control recommendations. (3) Severe obstructive sleep apnea: Plan: Cont BiPAP HS 31/03 (4) Hypertension: Plan: Continue irbesartan 150 mg p.o. daily Continue Torsemide 20 mg p.o. daily Controlled (5) Venous stasis ulcer of left lower extremity: Plan: Formal wound care consult requested and recs appreciated. (6) Morbid obesity with BMI of 50.0-59.9, adult: Plan: BMI 53 (7) Anemia: Plan: Fe studies, b12, folate all wnl. due to recent presumed viral infection? cbc in am. (8) Melena: Plan: fecal occult is +. 1 of 2 possibilities -- first, this could be swallowed blood from the oropharynx as he has had mucosal bleeding over the last few days from the mouth. second, this could be occult GI bleeding in the setting of his low platelets. PPI for GI prophylaxis added. Trend H/H. FOrtunately Fe studies do not suggest chronic GI blood loss. Plan: VTE Prophylaxis - Chemical prophylaxis contraindicated due to thrombocytopenia Admission and Anticipated Discharge Date Admission Date: June 26, 2021 Subjective no new events overnight denies bleeding from any location - no epistaxis, overt BRBPR, etc. feels well, eating well tele overnight wnl Review of Systems Review of Systems: gen - no fevers, chills cv - no cp pulm - no cough, no dyspnea GI - no N/V/D HENT - mouth sores present - mildly improved Physical Exam Physical Exam: gen - morbid obesity, NAD skin - severe venous stasis changes b/l legs; severe petechiae on torso/abd wall; multiple ulcerations on R & L shins - covered w/ optifoams mouth - ulcers on tongue much improved heart - RRR, s1 s2, no murmur lungs - CTA b/l abd - soft, NT, no HSM ext - 1+ edema b/l, pulses 2+ b/l Results & Data Results & Data ([facility]) Vital Signs (Past 12 Hours) Vital Signs Temp Pulse Pulse Resp BP BP Pulse Ox 06/29/21 15:34 36.7 C 48 L 17 153/78 H 95 06/29/21 10:56 36.6 C 44 L 18 162/85 H 93 06/29/21 08:00 48 L 06/29/21 07:15 36.5 C 58 L 19 146/76 H 96 Laboratory Results Laboratory Results - last 24 hr 06/26/21 06/26/21 06/28/21 09:25 18:53 19:11 WBC RBC Hgb Hct MCV MCH MCHC RDW Std Deviation RDW Coeff of Jeremy Plt Count Immature Gran % (Auto) Neut % (Auto) Lymph % (Auto) [place] % (Auto) Eos % (Auto) Baso % (Auto) Neut # (Auto) Lymph # (Auto) [place] # (Auto) Eos # (Auto) Baso # (Auto) Immature Gran # (Auto) Absolute Nucleated RBC Nucleated RBC % (auto) Platelet Estimate Haptoglobin 223 H Sodium Potassium Chloride Carbon Dioxide Anion Gap BUN Creatinine Est Cr Clr Drug Dosing Est GFR ( Amer) Est GFR (Non-Af Amer) BUN/Creatinine Ratio Glucose POC Glucose 193 H Calcium Stool Occult Bld Scrn EBV Capsid Ag IgG Ab 597.00 H EBV Capsid Ag IgM Ab <36.00 EBV EA Restrict+Diffuse 109.00 H EBV Nuclear Antigen Ab 443.00 H EBV Antibody Interp SEE NOTE 06/28/21 06/28/21 06/28/21 20:21 21:32 22:47 WBC RBC Hgb Hct MCV MCH MCHC RDW Std Deviation RDW Coeff of Jeremy Plt Count Immature Gran % (Auto) Neut % (Auto) Lymph % (Auto) [place] % (Auto) Eos % (Auto) Baso % (Auto) Neut # (Auto) Lymph # (Auto) [place] # (Auto) Eos # (Auto) Baso # (Auto) Immature Gran # (Auto) Absolute Nucleated RBC Nucleated RBC % (auto) Platelet Estimate Haptoglobin Sodium Potassium Chloride Carbon Dioxide Anion Gap BUN Creatinine Est Cr Clr Drug Dosing Est GFR ( Amer) Est GFR (Non-Af Amer) BUN/Creatinine Ratio Glucose POC Glucose 157 H 142 H 109 H Calcium Stool Occult Bld Scrn EBV Capsid Ag IgG Ab EBV Capsid Ag IgM Ab EBV EA Restrict+Diffuse EBV Nuclear Antigen Ab EBV Antibody Interp 06/28/21 06/28/21 06/29/21 23:11 23:41 00:31 WBC RBC Hgb Hct MCV MCH MCHC RDW Std Deviation RDW Coeff of Jeremy Plt Count Immature Gran % (Auto) Neut % (Auto) Lymph % (Auto) [place] % (Auto) Eos % (Auto) Baso % (Auto) Neut # (Auto) Lymph # (Auto) [place] # (Auto) Eos # (Auto) Baso # (Auto) Immature Gran # (Auto) Absolute Nucleated RBC Nucleated RBC % (auto) Platelet Estimate Haptoglobin Sodium Potassium Chloride Carbon Dioxide Anion Gap BUN Creatinine Est Cr Clr Drug Dosing Est GFR ( Amer) Est GFR (Non-Af Amer) BUN/Creatinine Ratio Glucose POC Glucose 99 108 H 124 H Calcium Stool Occult Bld Scrn EBV Capsid Ag IgG Ab EBV Capsid Ag IgM Ab EBV EA Restrict+Diffuse EBV Nuclear Antigen Ab EBV Antibody Interp 06/29/21 06/29/21 06/29/21 01:18 02:22 03:21 WBC RBC Hgb Hct MCV MCH MCHC RDW Std Deviation RDW Coeff of Jeremy Plt Count Immature Gran % (Auto) Neut % (Auto) Lymph % (Auto) [place] % (Auto) Eos % (Auto) Baso % (Auto) Neut # (Auto) Lymph # (Auto) [place] # (Auto) Eos # (Auto) Baso # (Auto) Immature Gran # (Auto) Absolute Nucleated RBC Nucleated RBC % (auto) Platelet Estimate Haptoglobin Sodium Potassium Chloride Carbon Dioxide Anion Gap BUN Creatinine Est Cr Clr Drug Dosing Est GFR ( Amer) Est GFR (Non-Af Amer) BUN/Creatinine Ratio Glucose POC Glucose 146 H 137 H 124 H Calcium Stool Occult Bld Scrn EBV Capsid Ag IgG Ab EBV Capsid Ag IgM Ab EBV EA Restrict+Diffuse EBV Nuclear Antigen Ab EBV Antibody Interp 06/29/21 06/29/21 06/29/21 04:14 05:17 06:39 WBC RBC Hgb Hct MCV MCH MCHC RDW Std Deviation RDW Coeff of Jeremy Plt Count Immature Gran % (Auto) Neut % (Auto) Lymph % (Auto) [place] % (Auto) Eos % (Auto) Baso % (Auto) Neut # (Auto) Lymph # (Auto) [place] # (Auto) Eos # (Auto) Baso # (Auto) Immature Gran # (Auto) Absolute Nucleated RBC Nucleated RBC % (auto) Platelet Estimate Haptoglobin Sodium Potassium Chloride Carbon Dioxide Anion Gap BUN Creatinine Est Cr Clr Drug Dosing Est GFR ( Amer) Est GFR (Non-Af Amer) BUN/Creatinine Ratio Glucose POC Glucose 129 H 137 H 130 H Calcium Stool Occult Bld Scrn EBV Capsid Ag IgG Ab EBV Capsid Ag IgM Ab EBV EA Restrict+Diffuse EBV Nuclear Antigen Ab EBV Antibody Inter 06/29/21 06/29/21 06/29/21 07:33 07:49 07:49 WBC 14.21 H RBC 3.77 L Hgb 11.2 L Hct 33.7 L MCV 89.4 MCH 29.7 MCHC 33.2 RDW Std Deviation 43.4 RDW Coeff of Jeremy 13.4 Plt Count 8 L* Immature Gran % (Auto) 2.8 Neut % (Auto) 77.0 Lymph % (Auto) 11.5 [place] % (Auto) 8.4 Eos % (Auto) 0.1 Baso % (Auto) 0.2 Neut # (Auto) 10.94 H Lymph # (Auto) 1.64 [place] # (Auto) 1.19 H Eos # (Auto) 0.01 Baso # (Auto) 0.03 Immature Gran # (Auto) 0.40 H Absolute Nucleated RBC 0.03 H Nucleated RBC % (auto) 0.2 Platelet Estimate SIGNIFIC DECREASED Haptoglobin Sodium 138 Potassium 4.1 Chloride 104 Carbon Dioxide 27 Anion Gap 7.0 BUN 34 H Creatinine 1.12 Est Cr Clr Drug Dosing 109.7 Est GFR ( Amer) 83.5 Est GFR (Non-Af Amer) 72.0 BUN/Creatinine Ratio 30.3 H Glucose 128 H POC Glucose 121 H Calcium 8.3 L Stool Occult Bld Scrn EBV Capsid Ag IgG Ab EBV Capsid Ag IgM Ab EBV EA Restrict+Diffuse EBV Nuclear Antigen Ab EBV Antibody Inter 06/29/21 06/29/21 06/29/21 09:10 11:38 16:26 WBC RBC Hgb Hct MCV MCH MCHC RDW Std Deviation RDW Coeff of Jeremy Plt Count Immature Gran % (Auto) Neut % (Auto) Lymph % (Auto) [place] % (Auto) Eos % (Auto) Baso % (Auto) Neut # (Auto) Lymph # (Auto) [place] # (Auto) Eos # (Auto) Baso # (Auto) Immature Gran # (Auto) Absolute Nucleated RBC Nucleated RBC % (auto) Platelet Estimate Haptoglobin Sodium Potassium Chloride Carbon Dioxide Anion Gap BUN Creatinine Est Cr Clr Drug Dosing Est GFR ( Amer) Est GFR (Non-Af Amer) BUN/Creatinine Ratio Glucose POC Glucose 216 H 210 H Calcium Stool Occult Bld Scrn Positive A EBV Capsid Ag IgG Ab EBV Capsid Ag IgM Ab EBV EA Restrict+Diffuse EBV Nuclear Antigen Ab EBV Antibody Interp PG Care Time/CCT Total # of Minutes Spent Total Time Spent with Patient: Total time spent is greater than 50% in coordination of care (as documented) at patient's floor/unit and/or counseling patient: Coding Level of Care Code 03793 Subseq Hosp Care Lvl 2 Diagnoses Acute ITP D69.3 Diabetes E11.8 Diabetes mellitus complication status: with unspecified complications Diabetes 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 use: without oil process stillman use Diabetes mellitus type: type 2 Severe obstructive sleep apnea G47.33 Hypertension I10 Hypertension type: essential hypertension Venous stasis ulcer of left lower extremity I83.029; L97.929 Morbid obesity with BMI of 50.0-59.9, adult E66.01; Z68.43 Anemia D64.9 Melena K92.1 (1) Diabetes Diabetes mellitus complication status: with unspecified complications Diabetes mellitus fpc insulin use: without fpc use Diabetes mellitus type: type 2 Qualified Code(s): E11.8 - Type 2 diabetes mellitus with unspecified complications (2) Hypertension Hypertension type: essential hypertension Qualified Code(s): I10 - Essential (primary) hypertension
[2021-06-30] MEDS: INSULIN ASPART PER UNIT SC SCH ×6 (00:35→21:26)
[2021-06-30 07:50] LABS: Hematocrit (blood only) 35.5 % (42-52); Hemoglobin 11.9 g/dL (14.0-18.0); Mean Corpuscular Hemoglobin 29.8 pg (25-34); Mean Corpuscular Volume 88.8 fL (80-100); Mean Platelet Volume 13.1 fL (7.4-10.4); RDW Coefficient of Variation 13.3 % (11.5-14.5); RDW Standard Deviation 42.5 fL (36.4-46.3); White Blood Count 15.16 K/uL (4.8-10.8)
[2021-06-30] MEDS: TORSEMIDE 20 MG TAB PO SCH (07:51)
[2021-06-30] MEDS: IRBESARTAN 150 MG TAB PO SCH (07:52)
[2021-06-30] MEDS: PANTOprazole 40 MG TAB PO SCH (07:52)
[2021-06-30 07:57] LABS: BUN Creatinine Ratio 29.7 (10-20); Calcium 8.2 mg/dl (8.5-10.1); Creatinine Clr Calc Pharmacy 102.9 ml/min; Est GFR (African American) 78.4 ml/min; Est GFR (Non-African American) 67.6 ml/min
[2021-06-30] MEDS: FAMOTIDINE 20MG IV PUSH 20 MG/5 ML SYR IV SCH ×2 (07:58→20:07)
[2021-06-30] MEDS: INSULIN HUMAN NPH SC SCH ×2 (07:58→17:12)
[2021-06-30 08:04] LABS: Basophils # (auto) 0.02 K/uL (0-0.2); Basophils % (auto) 0.1 %; Eosinophils # (auto) 0.01 K/uL (0-0.5); Eosinophils % (auto) 0.1 %; Immature Granulocytes # (auto) 0.39 K/uL (0.00-0.02); Immature Granulocytes % (auto) 2.6 %; Lymphocytes # (auto) 1.82 K/uL (1.2-3.4); Mean Corpuscular Hgb Conc 33.5 g/dL (32-36); Monocytes # (auto) 1.41 K/uL (0.11-0.59); Monocytes % (auto) 9.3 %; Neutrophils # (auto) 11.51 K/uL (1.4-6.5); Neutrophils % (auto) 75.9 %; Nucleated RBC # (auto) 0.05 K/uL (0-0); Nucleated RBC % (auto) 0.3 %; Platelet Count 18 K/uL (130-400); Platelet Estimate SIGNIFIC DECREASED (Normal)
[2021-06-30] MEDS ORDERED: IMMUNE GLOBULIN (HUMAN) SOLN IV ONE (08:06)
[2021-06-30 08:21] LABS: Potassium 4.1 mmol/L (3.5-5.1)
[2021-06-30] MEDS ORDERED: ACETAMINOPHEN 500 MG TAB PO ONE (09:00)
[2021-06-30] MEDS ORDERED: predniSONE 50 MG TAB PO SCH (09:00)
[2021-06-30] MEDS ORDERED: Octagam 10% IVIG 5 gram bottle IV ONE (09:00)
--- NOTE | 2021-06-30 09:23 | Pharmacy Report ---
Pharmacy Glycemic Short Note 2 - Date of Service June 30, 2021 - Glycemic Short BSG Results (Last 24 hours): 06/29/21 06/29/21 06/29/21 11:38 16:26 20:06 Glucose POC Glucose 216 H 210 H 226 H 06/30/21 06/30/21 06/30/21 00:10 05:15 07:25 Glucose POC Glucose 155 H 145 H 150 H 06/30/21 07:29 Glucose 156 H POC Glucose OUTPATIENT ANTIDIABETIC REGIMEN: * NPH 100 units w/ breakfast + 100units w/ dinner * Regular 100 units w/ breakfast + 100 units w/ dinner * HbA1c = 6.8% (06/26/21) ASSESSMENT: 06/30: * BSGs slightly elevated yesterday following drip transition (216, 210, 226 mg/dL) * Received 222 units of SC insulin yesterday (140 units of basal and 82 units of prandial/correctional bolus) * Fasting BSG of 150 mg/dL this morning * Today will be final day of dexamethasone 40 mg IV daily, transitioning to prednisone 100 mg PO daily starting tomorrow * Will tighten Novolog correction factor today in light of yesterday's BSGs, continue tightened carb ratio 06/29: * Patient met criteria for insulin drip discontinuation this morning as infusion rate was below 2 units/hr with BSG of 121 mg/dL * Day #4 of 5 of dexamethasone 40 mg IV for ITP * Will transition back to SC insulin by continuing previously ordered NPH and adding on tight Novolog parameters * Maintain higher BSG goal range as patient reports symptomatic hypoglycemia with BSG below 110 mg/dL * Will order overnight checks tonight at 00,04 to more closely monitor BSGs in light of recent insulin infusion transition 06/28: * Patient remains on insulin drip - currently running at 5.4 units/hr. * Received 70 units NPH + 45 units Novolog yesterday in addition to the drip to cover meals and steroids. * Pending order remains in place for patient to come off drip * Increasing NPH to 70 units BIDM today * Today is day #3/5 of Dexamethasone 40 mg IV. * Hopeful that increased NPH dosing will allow drip rate to decrease. * Goal range on drip was changed to 140-180 mg/dL last evening as patient reports symptomatic hypoglycemia with BSGs < 110 mg/dL. 06/26: * Type 2 diabetic admitted for severe thrombocytopenia, epistaxis, bruising, and mouth ulcers; concern for ITP * Patient will be receiving high dose dexamethasone IV as well as IVIG. * Patient states he uses high doses of insulin in the outpt setting (~400 units/day) and he has not receive any insulin today. He does state he would be concerned with using these same doses while hospitalized as his diet will be much different. BSGs in 200s thus far. * Will proceed with giving him NPH and Novolog STAT. Will continue to give him NPH BID. Suspect he will require a larger NPH dose in the AM with IV steroid. Will use Novolog instead for bolus doses with initial CF and CR based upon out-pt needs PLAN FOR INPATIENT GLYCEMIC CONTROL: * Basal insulin - continue * NPH 70 units SC BIDM * Bolus insulin - tighten * ACHS or q6 if NPO * Goal BSG Range: Low 120 mg/dL, High 160 mg/dL * Correction Factor: 8 mg/dL/unit * INS:Carbohydrate ratio = 2 g/unit PLAN FOR DISCHARGE: * HbA1c was 6.8% from this admission. No changes necessary to home regimen upon discharge unless patient to be discharged with ongoing steroids.
[2021-06-30] MEDS ORDERED: Octagam 10% IVIG 5 gram bottle IV SCH (09:30)
[2021-06-30] MEDS ORDERED: IMMUN GLOBG(IGG)/MALT/IGA OV50 100 ML IV SCH (10:00)
[2021-06-30] MEDS: amLODIPine BESYLATE 5 MG TAB PO SCH (10:10)
[2021-06-30] MEDS: IMMUN GLOBG(IGG)/MALT/IGA OV50 100 ML IV SCH ×7 (11:07→17:52)
[2021-06-30] MEDS ORDERED: amLODIPine BESYLATE 5 MG TAB PO ONE (17:56)
--- NOTE | 2021-06-30 23:12 | Hospitalist Progress Note ---
Date of Service June 30, 2021 Assessment & Plan (1) Acute ITP: Plan: Clinical picture most c/w ITP. No evidence of TTP based on peripheral smear review by pathology. s/p 1 unit of platelets, 1gm/kg of IVIG, and dexamethasone 40mg on 06/26. s/p additional unit of platelets, 0.5gm/kg IVIG, and 40mg dexamethasone on 06/27. s/p 40mg dexamethasone 06/28. s/p 40mg dexamethasone 06/29 along with 75gm of IVIG. today - repeat IVIG, 75gm; 40mg dexamethasone. Platelets today 18. CBC in am. Change steroids to prednisone 100mg daily starting tomorrow. Appreciate Dr Gibson's hematology consultation and recommendations. (2) Diabetes: Plan: HbA1C 6.8%. Had been on insulin infusion for optimal control given the high-dose IV steroids but now transitioned to SC insulin regimen. Hold metformin. Appreciate pharmacy providing glycemic control recommendations. Will likely need insulin at discharge due to steroids. (3) Severe obstructive sleep apnea: Plan: Cont BiPAP HS 31/03 Patient reports issues with his device - will ask social work to help with this tomorrow (4) Hypertension: Plan: Continue irbesartan 150 mg p.o. daily Continue Torsemide 20 mg p.o. daily Uncontrolled - due to high dose steroids -- add amlodipine 5mg BID (5) Venous stasis ulcer of left lower extremity: Plan: Formal wound care consult requested and recs appreciated. (6) Morbid obesity with BMI of 50.0-59.9, adult: Plan: BMI 52 (7) Anemia: Plan: Fe studies, b12, folate all wnl. due to recent presumed viral infection? cbc in am. (8) Melena: Plan: fecal occult is +. 1 of 2 possibilities -- first, this could be swallowed blood from the oropharynx as he has had mucosal bleeding over the last few days from the mouth. second, this could be occult GI bleeding in the setting of his low platelets. PPI for GI prophylaxis added. H/H remain stable. Fortunately Fe studies do not suggest chronic GI blood loss. Plan: VTE Prophylaxis - Chemical prophylaxis contraindicated due to thrombocytopenia if platelets continue to rise hopefully he can d/c home soon Admission and Anticipated Discharge Date Admission Date: June 26, 2021 Subjective pt without any complaints no epistaxis, rectal bleeding (had a normal, brown stool today), bleeding from dorman ulcers, etc eating well main complaint is that of ulcers in throat still using magic mouthwash for such Review of Systems Review of Systems: gen - no fevers, no chills CV - no cp, no orthopnea pulm - no cough, no congestion GI - no N/V/D/abd pain Physical Exam Physical Exam: gen - morbid obesity, NAD skin - severe venous stasis changes b/l legs; severe petechiae on torso/abd wall; multiple ulcerations on R & L shins - covered w/ optifoams; no active bleeding from these ulcers mouth - ulcers on tongue resolved; still with ulcers posterior pharynx heart - RRR, s1 s2, no murmur lungs - CTA b/l abd - soft, NT, no HSM ext - 1+ edema b/l, pulses 2+ b/l Results & Data Results & Data ([facility]) Vital Signs (Past 12 Hours) Vital Signs Temp Pulse Pulse Resp BP Pulse Ox 06/30/21 18:42 36.7 C 43 L 18 172/62 H 94 06/30/21 15:37 36.8 C 43 L 20 187/62 H 93 06/30/21 15:36 54 L 06/30/21 11:52 36.6 C 45 L 18 159/60 H 99 Laboratory Results Laboratory Results - last 24 hr 06/30/21 06/30/21 06/30/21 00:10 05:15 07:25 WBC RBC Hgb Hct MCV MCH MCHC RDW Std Deviation RDW Coeff of Jeremy Plt Count MPV Immature Gran % (Auto) Neut % (Auto) Lymph % (Auto) [place] % (Auto) Eos % (Auto) Baso % (Auto) Neut # (Auto) Lymph # (Auto) [place] # (Auto) Eos # (Auto) Baso # (Auto) Immature Gran # (Auto) Absolute Nucleated RBC Nucleated RBC % (auto) Platelet Estimate Sodium Potassium Chloride Carbon Dioxide Anion Gap BUN Creatinine Est Cr Clr Drug Dosing Est GFR ( Amer) Est GFR (Non-Af Amer) BUN/Creatinine Ratio Glucose POC Glucose 155 H 145 H 150 H Calcium 06/30/21 06/30/21 06/30/21 07:29 07:29 11:29 WBC 15.16 H RBC 4.00 L Hgb 11.9 L Hct 35.5 L MCV 88.8 MCH 29.8 MCHC 33.5 RDW Std Deviation 42.5 RDW Coeff of Jeremy 13.3 Plt Count 18 L* D MPV 13.1 H Immature Gran % (Auto) 2.6 Neut % (Auto) 75.9 Lymph % (Auto) 12.0 [place] % (Auto) 9.3 Eos % (Auto) 0.1 Baso % (Auto) 0.1 Neut # (Auto) 11.51 H Lymph # (Auto) 1.82 [place] # (Auto) 1.41 H Eos # (Auto) 0.01 Baso # (Auto) 0.02 Immature Gran # (Auto) 0.39 H Absolute Nucleated RBC 0.05 H Nucleated RBC % (auto) 0.3 Platelet Estimate SIGNIFIC DECREASED Sodium 135 L Potassium 4.1 Chloride 104 Carbon Dioxide 28 Anion Gap 3.0 BUN 35 H Creatinine 1.18 Est Cr Clr Drug Dosing 102.9 Est GFR ( Amer) 78.4 Est GFR (Non-Af Amer) 67.6 BUN/Creatinine Ratio 29.7 H Glucose 156 H POC Glucose 221 H Calcium 8.2 L 06/30/21 06/30/21 16:46 20:41 WBC RBC Hgb Hct MCV MCH MCHC RDW Std Deviation RDW Coeff of Jeremy Plt Count MPV Immature Gran % (Auto) Neut % (Auto) Lymph % (Auto) [place] % (Auto) Eos % (Auto) Baso % (Auto) Neut # (Auto) Lymph # (Auto) [place] # (Auto) Eos # (Auto) Baso # (Auto) Immature Gran # (Auto) Absolute Nucleated RBC Nucleated RBC % (auto) Platelet Estimate Sodium Potassium Chloride Carbon Dioxide Anion Gap BUN Creatinine Est Cr Clr Drug Dosing Est GFR ( Amer) Est GFR (Non-Af Amer) BUN/Creatinine Ratio Glucose POC Glucose 234 H 195 H Calcium PG Care Time/CCT Total # of Minutes Spent Total Time Spent with Patient: Total time spent is greater than 50% in coordination of care (as documented) at patient's floor/unit and/or counseling patient: Coding Level of Care Code 31251 Subseq Hosp Care Lvl 2 Diagnoses Acute ITP D69.3 Diabetes E11.8 Diabetes mellitus type: type 2 Diabetes mellitus 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 insulin use: without half-way use Diabetes mellitus complication status: with unspecified complications Severe obstructive sleep apnea G47.33 Hypertension I10 Hypertension type: essential hypertension Venous stasis ulcer of left lower extremity I83.029; L97.929 Morbid obesity with BMI of 50.0-59.9, adult E66.01; Z68.43 Anemia D64.9 Melena K92.1 (1) Diabetes Diabetes mellitus type: type 2 Diabetes mellitus half-way insulin use: without half-way use Diabetes mellitus complication status: with unspecified complications Qualified Code(s): E11.8 - Type 2 diabetes mellitus with unspecified complications (2) Hypertension Hypertension type: essential hypertension Qualified Code(s): I10 - Essential (primary) hypertension
[2021-07-01] MEDS: INSULIN ASPART PER UNIT SC SCH ×2 (07:57→11:57)
[2021-07-01] MEDS: PANTOprazole 40 MG TAB PO SCH (07:59)
[2021-07-01] MEDS: FAMOTIDINE 20MG IV PUSH 20 MG/5 ML SYR IV SCH (07:59)
[2021-07-01] MEDS: TORSEMIDE 20 MG TAB PO SCH (07:59)
[2021-07-01] MEDS ORDERED: INSULIN HUMAN NPH SC SCH (08:00)
[2021-07-01] MEDS: amLODIPine BESYLATE 5 MG TAB PO SCH (08:00)
[2021-07-01] MEDS: IRBESARTAN 150 MG TAB PO SCH (08:00)
[2021-07-01 08:41] LABS: Nucleated RBC # (auto) 0.15 K/uL (0-0); Nucleated RBC % (auto) 0.7 %
[2021-07-01] MEDS ORDERED: predniSONE 50 MG TAB PO SCH (09:00)
[2021-07-01 09:07] LABS: Basophils # (auto) 0.05 K/uL (0-0.2); Basophils % (auto) 0.2 %; Eosinophils # (auto) 0.01 K/uL (0-0.5); Hematocrit (blood only) 37.7 % (42-52); Hemoglobin 12.8 g/dL (14.0-18.0); Immature Granulocytes # (auto) 0.82 K/uL (0.00-0.02); Lymphocytes # (auto) 2.63 K/uL (1.2-3.4); Mean Corpuscular Hemoglobin 30.3 pg (25-34); Mean Corpuscular Volume 89.1 fL (80-100); Mean Platelet Volume 11.4 fL (7.4-10.4); Monocytes # (auto) 1.51 K/uL (0.11-0.59); Monocytes % (auto) 7.5 %; Neutrophils # (auto) 15.23 K/uL (1.4-6.5); Neutrophils % (auto) 75.3 %; Platelet Count 51 K/uL (130-400); RDW Coefficient of Variation 13.4 % (11.5-14.5); RDW Standard Deviation 42.6 fL (36.4-46.3); Red Blood Count 4.23 M/uL (4.7-6.1); White Blood Count 20.25 K/uL (4.8-10.8)
[2021-07-01 09:22] LABS: BUN Creatinine Ratio 30.5 (10-20); Calcium 8.1 mg/dl (8.5-10.1); Creatinine Clr Calc Pharmacy 104.7 ml/min; Potassium 3.9 mmol/L (3.5-5.1)
--- NOTE | 2021-07-01 12:41 | Pharmacy Report ---
Pharmacy Glycemic Short Note 2 - Date of Service July 01, 2021 - Glycemic Short BSG Results (Last 24 hours): 06/30/21 06/30/21 07/01/21 16:46 20:41 07:45 Glucose POC Glucose 234 H 195 H 166 H 07/01/21 07/01/21 08:17 11:30 Glucose 205 H POC Glucose 193 H OUTPATIENT ANTIDIABETIC REGIMEN: * NPH 100 units w/ breakfast + 100units w/ dinner * Regular 100 units w/ breakfast + 100 units w/ dinner * HbA1c = 6.8% (06/26/21) ASSESSMENT: 07/01: * BSGs elevated again yesterday, 150, 221, 234, and 195 mg/dL, fasting BSG of 166 mg/dL this morning * Steroids changed to prednisone 100 mg PO daily starting today per hematology recs * Will increase NPH today and slightly adjust Novolog order in light of sustained highs and elevated fasting BSG 06/30: * BSGs slightly elevated yesterday following drip transition (216, 210, 226 mg/dL) * Received 222 units of SC insulin yesterday (140 units of basal and 82 units of prandial/correctional bolus) * Fasting BSG of 150 mg/dL this morning * Today will be final day of dexamethasone 40 mg IV daily, transitioning to prednisone 100 mg PO daily starting tomorrow * Will tighten Novolog correction factor today in light of yesterday's BSGs, continue tightened carb ratio 06/29: * Patient met criteria for insulin drip discontinuation this morning as infusion rate was below 2 units/hr with BSG of 121 mg/dL * Day #4 of 5 of dexamethasone 40 mg IV for ITP * Will transition back to SC insulin by continuing previously ordered NPH and adding on tight Novolog parameters * Maintain higher BSG goal range as patient reports symptomatic hypoglycemia with BSG below 110 mg/dL * Will order overnight checks tonight at 00,04 to more closely monitor BSGs in light of recent insulin infusion transition 06/26: * Type 2 diabetic admitted for severe thrombocytopenia, epistaxis, bruising, and mouth ulcers; concern for ITP * Patient will be receiving high dose dexamethasone IV as well as IVIG. * Patient states he uses high doses of insulin in the outpt setting (~400 uni ts/day) and he has not receive any insulin today. He does state he would be concerned with using these same doses while hospitalized as his diet will be much different. BSGs in 200s thus far. * Will proceed with giving him NPH and Novolog STAT. Will continue to give him NPH BID. Suspect he will require a larger NPH dose in the AM with IV steroid. Will use Novolog instead for bolus doses with initial CF and CR based upon out-pt needs PLAN FOR INPATIENT GLYCEMIC CONTROL: * Basal insulin - increase by ~15% * NPH 80 units SC BIDM * Bolus insulin - lower upper-end of goal range * ACHS or q6 if NPO * Goal BSG Range: Low 120 mg/dL, High 150 mg/dL * Correction Factor: 8 mg/dL/unit * INS:Carbohydrate ratio = 2 g/unit PLAN FOR DISCHARGE: * HbA1c was 6.8% from this admission. No changes necessary to home regimen upon discharge unless patient to be discharged with ongoing steroids.
--- NOTE | 2021-07-01 12:54 | Discharge Summary ---
Date of Service date of admission - June 26, 2021 date of discharge - July 01, 2021 Admission HPI Per Admitting Provider Terrance Walker is a 60 year old male who presents to the ER due to abnormal outpatient labs showing thrombocytopenia. He notes 2 weeks of cold/flu symptoms with nasal congestion, no fevers, chills, sinus pain, shortness of breath or chest pain. He reports epistaxis and tongue ulcers for the last 2 days. No melena or bright red blood in stool. He denies any history of autoimmune conditions such as IBD, RA or lupus. No known family history of hematological cancers. In the ER CT head was negative for intracranial hemorrhage. Hemoglobin 11.6 from 12.8 yesterday. LDH minimally elevated at 260. Thrombocytopenia was confirmed with platelet count 1K/uL. Hematology were contacted and recommending IVIG and dexamethasone. He was referred to medicine for admission ongoing management of ITP. Principal Diagnosis Acute ITP Discharge Exam gen - morbid obesity, NAD skin - severe venous stasis changes b/l legs; severe petechiae on torso/abd wall - but improving; multiple ulcerations on R & L shins - covered w/ optifoams; no active bleeding from these ulcers mouth - ulcers on tongue resolved; still with ulcers posterior pharynx heart - RRR, s1 s2, no murmur lungs - CTA b/l abd - soft, NT, no HSM ext - 1+ edema b/l, pulses 2+ b/l Discharge Data Allergies Allergy/AdvReac Type Severity Reaction Status Date / Time sulfamethoxazole AdvReac Mild NAUSEA, Verified 06/26/21 09:06 VOMITING trimethoprim AdvReac Mild NAUSEA, Verified 06/26/21 09:06 VOMITING bacitracin AdvReac Unknown GI UPSET Verified 06/26/21 09:06 neomycin AdvReac Unknown GI UPSET Verified 06/26/21 09:06 polymyxin B AdvReac Unknown GI UPSET Verified 06/26/21 09:06 Consultations Hematology - Alisson Gibson MD Procedures Performed 1. Platelet infusion x 2 2. IVIG x 4 infusions Ordered Studies Head CT 06/26/21 09:01 CT head/brain wo con CLINICAL HISTORY: ro ich Technique: Contiguous axial CT images of the head were acquired from the base of the skull to the vertex without intravenous contrast administration. Images were viewed in brain, subdural and bone windows. Automated dose lowering techniques and/or adjustment according to patient size were utilized for this exam. Comparison: None available at the time of this dictation. Findings: The ventricles, basal cisterns, and cerebral sulci are normal. There is no acute intracranial hemorrhage or evidence of acute territorial infarction. Neither mass effect, shift of the midline structures, nor abnormal extra-axial fluid collections are shown. Imaged portions of the paranasal sinuses and mastoid air cells are clear. The orbits appear normal. There are no acute fractures of the calvaria or scalp swelling. Impression: No acute intracranial hemorrhage, no evidence of acute territorial infarction or other acute intracranial disease process. ACT 112: Negative or not required by law. Electronically signed by: Antonio Correa M.D. 06/26/2021 9:41 AM Chest X-Ray 06/26/21 11:19 XR chest 1V portable CLINICAL HISTORY: ITP ?pneumonia TECHNIQUE: Single frontal radiograph of the chest was obtained. Comparison: Comparison is made to chest 2 views 01/24/2020 FINDINGS: Exam is limited by underpenetration. Cardiomegaly is noted. Lungs are underinflated but clear. No evidence of pleural effusion or pneumothorax. IMPRESSION: No acute chest disease. ACT 112: Negative or not required by law. Electronically signed by: Antonio Correa M.D. 06/26/2021 12:24 PM Hospital Course (1) Acute ITP: The patient's clinical picture was most consistent with ITP. No evidence of TTP based on peripheral smear review by pathology. Treatment as as follows - s/p 1 unit of platelets, 1gm/kg of IVIG, and dexamethasone 40mg on 06/26. s/p additional unit of platelets, 0.5gm/kg IVIG, and 40mg dexamethasone on 06/27. s/p 40mg dexamethasone 06/28. s/p 40mg dexamethasone and 75gm of IVIG on 06/29. s/p 40mg dexamethasone and 75gm of IVIG on 06/30. Lowest platelet count was 1. Platelet count on 07/01/21 was 51. The patient was seen by Dr Alisson Gibson from hematology/oncology. She provided beatty recommendations for his ITP. After platelets finally started to trend up he was changed to oral prednisone. Dose will be 80mg/day starting 07/02/21. Future dosing will depend on platelet counts moving forward. It was suspected that the cause of his ITP was viral-induced. About 3-4 weeks prior to this he had experienced a URI. COVID testing was negative. EBV testing was negative for acute infection CMV IgM was negative. (2) Diabetes: HbA1C 6.8%. He required an insulin infusion for optimal control given the high-dose IV stero ids for his ITP but ultimately was transitioned back to SC insulin regimen. The pharmacy glycemic team provided beatty recommendations for his glycemic control. At discharge he will resume his previous complex regimen of SC insulin including Novolin R and Novolin N. He will also resume his metformin. He was counseled that his diabetes will likely be very difficult to control because of his prednisone use and that he will need to watch his diet carefully, adjust his sliding scale, check sugars frequently and regularly, etc. (3) Severe obstructive sleep apnea: Cont BiPAP HS 31/03. Patient reported issues with his home device - social work reached out to the BIPAP home health provider and they will try to determine the problem with the device. (4) Hypertension: Continue irbesartan 150 mg p.o. daily Continue Torsemide 20 mg p.o. daily Uncontrolled - due to high dose steroids -- added amlodipine 5mg BID; prescription given for amlodipine at discharge (5) Venous stasis ulcer of left lower extremity: Formal wound care consult requested while here. Has multiple ulcers on b/l shins. These will be covered with aquacel ag and covered with optifoams. Due to the geographic distance in getting to the [facility] he will have home health nursing to monitor these. (6) Morbid obesity with BMI of 50.0-59.9, adult: BMI 52 (7) Anemia: Fe studies, b12, folate all wnl. due to recent presumed viral infection? (8) Melena: The patient had 1 episode of melena stool while hospitalized. The stool was indeed fecal occult positive. 1 of 2 possibilities -- first, this could be swallowed blood from the oropharynx as he had had mucosal bleeding in the days leading up to this. second, this could be occult GI bleeding in the setting of his low platelets. PPI for GI prophylaxis added. H/H remain stable while here - discharge hemoglobin was 12.8. Fortunately Fe studies do not suggest chronic GI blood loss. To be on safe side would advise a GI referral once his ITP is under good control. Consideration to EGD can be entertained then. Again he will be on once daily PPI for GI prophylaxis while on high-dose prednisone for the ITP. Home Health Attestation I certify that this patient is under my care and that I, or a physicians occupational therapy assistant working with me, had a face to-face encounter that meets the home health [id number] encounter requirements with this patient. The encounter with the patient was in whole, or in part, for the following medical condition, which is the primary reason for home health care (list medical condition): I certify that, based on my findings, the following services are medically ne cessary home health services: My clinical findings support the need for the above services because: Further, I certify that my clinical findings support that this patient is homebound (i.e. absences from home require considerable and taxing effort and are for medical reasons or scientologist services or infrequently or of short duration when for other reasons) because: Certification for Home Health Services: Based on the above findings, I certify that this patient is confined to the home and needs intermittent intermediate care, physical therapy and/or speech therapy or continues to need occupational therapy. The patient is under my care, and I have initiated the establishment of the plan of care. This patient will be followed by a physician who will periodically review the plan of care. Total Time Total Time Spent Total Time Spent (In Minutes): 50 Discharge Plan Discharge Items Patient Disposition: Home - Home Health Services Reason For Visit: THROMBOCYTOPENIA (Low Platelets) Discharge Diagnosis: Probable "ITP" (idiopathic thrombocytopenic purpura) as the cause of your low platelets. See handout. Activity: As commented below Activity Comment: avoid any activity that could increase your chances of bleeding - see below Driving/Machine Use: Resume 1 day after discharge Non-emergency contact: Primary Care Provider and Oncologist Call non-emergency contact if: you have any medication questions, your symptoms worsen, your wound has increased redness, your wound has increased drainage and your wound pain has increased Follow-up/Referrals: Frank Landeros MD [Primary Care Provider] - 07/13/21 11:00 am Alisson Gibson MD [Physician] - 07/09/21 12:50 pm Diet: Carb Consistent or DM2 Addtl Attending Provider Instructions: Mr Walker, Don presented to the hospital with a flu-like illness along with ulcers in your mouth. You had developed red spots on your abdominal wall as well. While in the ER we found that your platelet count was SEVERELY LOW with platelets of 1 (normal platelet count is 150-450). You were admitted with a probable diagnosis of "ITP." This is a condition in which your body is destroying its platelets. It is likely that the recent viral illness you had triggered the ITP. You received multiple rounds of IVIG, steroids, and platelet transfusions. Your platelets have improved to 51 on day of discharge. Because of the steroids your sugars were very hard to control. We had to make frequent adjustments of your insulins. Dr Gibson from hematology/oncology saw you in consult and has recommended taking daily prednisone at discharge for the ITP. She will be seeing you 1 week after discharge. Know that the prednisone will cause your sugars to go high and make it very difficult to control your diabetes. Recommendations - 1. ITP treatment - * take prednisone 80mg (20mg x 4) once daily with food. Start this tomorrow, 07/02/21. Stay on this dose until you see Dr Gibson in the clinic. * to protect your stomach from the effects of the prednisone please take pantoprazole 40mg every morning. Start this tomorrow morning, 07/02/21. 2. For your high blood pressure - * start amlodipine 5mg twice daily, first dose tonight. * prescription sent to pharmacy for you. 3. For your mouth sores and throat discomfort - * magic mouthwash - 5cc before meals & at bedtime -- swish and spit * use this mouthwash as needed * know that it contains a numbing medication so use caution when eating/drinking after using the mouthwash 4. Diabetes - * your diabetes will be much more difficult to control because of the prednisone * please watch your diet carefully at home * continue your NPH insulin before breakfast and before your evening meal * while at [facility] you have been requiring 80 units twice daily of the NPH * please adjust the NPH according to your sliding scale as needed * continue your regular (short-acting) insulin for meal-time coverage * know that you may need a shot of regular insulin with your lunch meal (in addition to breakfast and dinner) * please use your usual regular insulin sliding scale as previous * you have been requiring about 35 units of short-acting insulin with each meal at [facility] 5. Wounds on your shins - * aquacel ag (blue material) to the wounds then cover with optifoams * we will set up home health nursing to follow your wounds * watch for any signs of infection (drainage, redness, pain, etc) * the dressings are usually changed every 48 hours 6. Please avoid any activity that increases your chances of injury & bleeding - * examples include - use of a chainsaw, use of other power tools, exercise/sports with high risk of head injury, etc * otherwise continue normal activities at home 7. Follow-up - see separate section Return to [facility] if - * you have fevers over 100 degrees * you have excessive bruising, red dots on the skin, heavy nose bleeding, bleeding from your rectum or urine, or bleeding from your leg wounds * you have concerns about infection of your ulcers on your shins * your blood sugars are consistently greater than 300 * you have shortness of breath or chest pains * any other concerns It was our pleasure to care for you at [facility]! Dr Porter Pending Studies at Discharge: No Stand-Alone Forms: My [facility], Smoking Cessation Medications and DC Order Prescriptions: New amlodipine [Norvasc] 5 mg Tablet 5 mg PO BID Qty: 60 RF: 2 pantoprazole 40 mg Tablet,Delayed Release (Dr/Ec) 40 mg PO QAM Qty: 30 RF: 2 prednisone 20 mg tablet 20 mg PO .daily as directed Qty: 60 RF: 1 Magic Mouthwash 300 mL mouthwash 5 ml mucous membrane ACHS Qty: 300 RF: 0 Continued (DME) CPAP Machine Misc See Rx Instructions .ROUTE .MEDSUPPLY Qty: 1 RF: 0 (DME) FreeStyle Fabio 14 Day Perry Misc See Rx Instructions .ROUTE .MEDSUPPLY Qty: 6 RF: 3 (DME) FreeStyle Fabio 14 Day Sensor Kit See Rx Instructions .ROUTE .MEDSUPPLY Qty: 6 RF: 3 (DME) insulin syringe-needle U-100 [BD Insulin Syringe Ultra-Fine] 1 mL 30 gauge x 1/2" syringe See Dose Instructions .ROUTE .MEDSUPPLY Qty: 180 RF: 5 metformin 500 mg tablet extended release 24 hr See Rx Instructions .ROUTE .COMPLEX Qty: 60 RF: 5 irbesartan 150 mg tablet See Rx Instructions .ROUTE .COMPLEX Qty: 30 RF: 5 torsemide 20 mg tablet See Rx Instructions .ROUTE .COMPLEX Qty: 30 RF: 5 (DME) CPAP Machine Misc See Rx Instructions .MEDSUPPLY Qty: 1 RF: 0 (DME) CPAP Machine Misc See Rx Instructions .ROUTE .MEDSUPPLY Qty: 1 RF: 0 Changed Novolin R Regular U-100 Insuln 100 unit/mL solution See Rx Instructions SQ .COMPLEX MDD 400 units Qty: 120 RF: 5 Novolin N NPH U-100 Insulin 100 unit/mL suspension See Rx Instructions SQ .COMPLEX Qty: 120 RF: 5 Discharge Orders: Discharge Order (Routine); Ordered 07/01/21 Ordered By: Juan Garcia/Other Patient Handouts: Managing Type 2 Diabetes, ITP Dc, Special Foot Care for Diabetes Admission Data Admit Date/Time: 06/26/21 11:15 Attending Provider: Juan Porter Admit Provider: Juan Durand Primary Care Provider: Frank Landeros Other Providers: Juan Durand ; Alisson Gibson ; [place],[facility] Other Interventions: Discharge Summary Assessment (RN) Last Done: 07/01/21 13:05 Coding Level of Care Code D/C DAY MANAGEMENT >30 MINS Diagnoses Acute ITP D69.3 Diabetes E11.8 Diabetes mellitus complication status: with unspecified complications Diabetes mellitus prison insulin use: without prison use Diabetes mellitus type: type 2 Severe obstructive sleep apnea G47.33 Hypertension I10 Hypertension type: essential hypertension Venous stasis ulcer of left lower extremity I83.029; L97.929 Morbid obesity with BMI of 50.0-59.9, adult E66.01; Z68.43 Anemia D64.9 Melena K92.1
== END 2021-07-01 14:14 | disposition home health service (06) | DRG 813 ==
LOC: ED 08:47 → SUATTDRO 11:15 → EDINP 11:15 → 2N 18:33
DX: K92.2 Gastrointestinal hemorrhage, unspecified; Z68.43 Body mass index [BMI] 50.0-59.9, adult; I10 Essential (primary) hypertension; D69.3 Immune thrombocytopenic purpura; Z79.84 Long term (current) use of oral hypoglycemic drugs; G47.33 Obstructive sleep apnea (adult) (pediatric); D64.9 Anemia, unspecified; E66.01 Morbid (severe) obesity due to excess calories; L97.929 Non-pressure chronic ulcer of unspecified part of left lower leg with unspecified severity; E11.9 Type 2 diabetes mellitus without complications

== ENCOUNTER 2024-01-26 10:12 | Inpatient (IN) ==
--- NOTE | 2024-01-26 10:34 | Emergency Department Note ---
Impression & Plan Dizziness, Leukocytosis, Dysrhythmia ED Provider Note NAME: DAVID QUINTANA AGE: 63 SEX: M : 1960 ARRIVES VIA: Ambulance INFORMANT: [Patient] ED PROVIDER(S): [Scott Guerrero MD] CHIEF COMPLAINT: Dizziness HISTORY OF PRESENT ILLNESS: The patient is a 63-year-old male who states that for the last 4 to 5 days, he has felt sometimes dizzy. Mostly, he would notice symptoms with standing. Over the last 24 hours, he has noticed some shortness of breath and increased dizziness with exertion. No chest pain. He has not had cough or congestion. No sweating. The patient felt poorly this morning and felt he should be seen, he called the ambulance. The patient states that he has no known heart issue. He has never had a heart attack or rhythm disturbance. He is a diabetic. PMHx/PSHx/Social Hx: See Below PHYSICAL EXAM: GENERAL: Patient is in no acute distress. HEENT: No acute trauma, normocephalic atraumatic, mucous membranes moist, no nasal congestion. NECK: No stridor, no adenopathy, no meningismus, trachea is midline. LUNGS: Clear to auscultation bilaterally when listening anterior, no wheeze, no rhonchi, breath sounds equal. HEART: Heart tones are distant, no obvious murmur, rhythm is irregular and mildly tachycardic. ABDOMEN: Soft, nontender, no peritonitis. EXTREMITIES: No cyanosis, full range of motion of all the joints without pain or difficulty. NEUROLOGIC: Oriented x 3, no acute motor or sensory deficits, no focal weakness. Mild bilateral pedal edema with some chronic skin change. SKIN: No jaundice, no diaphoresis. DIFFERENTIAL DIAGNOSIS: A-fib or a flutter, SVT, dysrhythmia, anemia, electrolyte imbalance, dehydration, NM, among others. EMERGENCY DEPARTMENT PROCEDURES: MEDICAL DECISION MAKING: There is a moderate leukocytosis, this could be from infection or the stress of his current presentation. There is a normal hemoglobin and platelet count. No significant electrolyte abnormality, no renal failure. Lactic acid level was not elevated making severe sepsis less likely. No concerning liver enzyme elevation. The patient appeared to be in a euthyroid state. ECG showed a sinus rhythm with a first-degree AV block and then what appeared to be atrial fibrillation versus atrial tachycardia. No acute ST elevation. There was a right bundle branch block. Cardiac enzyme testing x 1 was not consistent with acute cardiac injury. Urinalysis did not show infection. Chest x-ray did not show CHF, pneumonia or pneumothorax. On exam, despite the changing cardiac rhythm, the patient appeared stable. The patient did receive IV saline, 1 L. He was given a dose of IV metoprolol, 5 mg. The metoprolol did not change his rhythm. He received IV magnesium. 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 The patient would have bouts of sinus pause, he would have some sinus bradycardia with a first-degree block, a sinus rhythm with a first-degree block and also some atrial tachycardia. I did speak with Dr. Saba of cardiology. Care needs to be taken with medications as, treating his tachycardia could worsen the bradycardia and sinus pauses. For now, as the patient is stable, I will hold off on any further medications. I did speak with case management, the on-call hospitalist was consulted. The patient is aware of his findings, he understands he may even require pacemaker placement if things worsen or cannot be improved otherwise. I do think the rhythm issue is causing his complaints of dizziness and shortness of breath. Prior/Outside records/notes reviewed: Today's EMS notes describing his presentation and transport to this hospital. ECG per my interpretation: Indication was shortness of breath. The ECG shows what appears to be atrial fibrillation or atrial tachycardia with conversion to a sinus rhythm with a first-degree AV block and a right bundle branch block. The rate is recorded at 112. The QTc is recorded at 499. There are no PVCs. No acute ST elevation. Compared to an ECG from 26 June 2021, the right bundle branch block is now present. The dysrhythmia is now present. Continuous Cardiac Monitoring per my interpretation: An order was placed for continuous cardiac monitoring. The monitor shows a rate of 144 with atrial tachycardia. Imaging/x-ray results per my interpretation: Chest x-ray did not show mediastinal widening, CHF or pneumonia. Chronic Medical/Social conditions affecting care: Diabetes Care/Management discussed with: Case management, the on-call hospitalist. Cardiology-Dr. Saba. Level of care consideration(s): After review of the information above and other included data: --I believe the patient requires escalation of care to admission Critical Care Note: I have personally spent 48 minutes of critical care time in the direct management of this patient. This includes bedside care, interpretation of diagnostic studies, and testing, discussion with consultants, patient, and family members, and other required patient management activities. This 48 minutes is in excess of all separately billable procedures. DISPOSITION: Admission Past Med/Surg History Problem List (Updated 01/26/24 @ 16:16 by Scott Guerrero MD) Dysrhythmia (Acute) Leukocytosis (Acute) Dizziness (Acute) Lightheadedness Arrhythmia Osteoarthritis of knees, bilateral Vertebral osteophyte Degeneration of thoracic intervertebral disc Leukocytosis Foot pain Arthritis of foot Chronic ITP (idiopathic thrombocytopenia) Nocturnal hypoxemia (Chronic) Hypertension Uncontrolled diabetes mellitus with retinopathy (Chronic) Osteomyelitis of forefoot (Chronic) on abx therapy, following Dr. Martinez ([facility]) Hyperlipidemia (Chronic) BMI 50.0-59.9, adult (Chronic) Venous stasis ulcers of both lower extremities (Acute) Diabetic foot ulcer associated with type 2 diabetes mellitus (Chronic) Arthritis (Chronic) Medical History History of COVID-19 > 1 yr ago. History of fall within past 90 days a few mon ago/injured back (had f/u and told healed), 1 broken rib, concussion. History of anesthesia reaction with toe surgery, woke up during gave me more to go back to sleep. with prior colonoscopy, woke up during gave me more to go back to sleep. History of colon polyps Hyperlipidemia Diabetic leg ulcer bilat. - patient cares for them himself at this time, denies an infection. currently is still there (09/15/23) Morbid obesity with BMI of 50.0-59.9, adult Acute ITP hx Thrombocytopenia hx JOSHUA (obstructive sleep apnea) cpap Peripheral neuropathy Osteoarthritis Chronic back pain Edema legs always. Anemia hx Hypertension Chronic venous insufficiency Diabetes Type 2 - IDDM Surgical History Hx of colonoscopy S/P lymph node biopsy History of amputation S/P foot surgery, right Family History Father Acute myocardial infarction Alcohol abuse Tobacco use Diabetes Myocardial infarction Mother Brain cancer Social History Smoking Status: Never smoker Second Hand Exposure: No; Do You Dip or Chew Tobacco: No; Hx Alcohol Use: No Hx Substance Use: No Preferred Language: Vincentian Communication Ability: Effective Visual Impairment: No Limitations Hearing Ability: Normal Water Main Pipe Layer Required: No Beliefs That Will Affect Care: None marital status: single Current Living Situation: Alone current occupational status: unemployed and disabled How many Children do You have: 0 Other Information That Helps Us Care for You: No Feels Safe at Home: Yes Safety Concerns: Feels Safe At This Time Diet: regular Diet Comment: regular caffeine: Yes during the past year weight has: decreased > 10 lbs Dental Care, Regularly: No Physical Activity Frequency: 1-2 Times per Week Physical Activity Frequency Comment: walks in the summertime Seatbelt Use: never Sunscreen Use: No Assistive Devices: CPAP Allergies Allergies Allergy/AdvReac Type Severity Reaction Status Date / Time bacitracin AdvReac Unknown GI UPSET Verified 09/15/23 09:22 neomycin AdvReac Unknown GI UPSET Verified 09/15/23 09:22 polymyxin B AdvReac Unknown GI UPSET Verified 09/15/23 09:22 rosuvastatin AdvReac Unknown Joint Pain Verified 09/15/23 09:22 sulfamethoxazole AdvReac Unknown pt reports Verified 09/15/23 09:22 doesn't know about this one trimethoprim AdvReac Unknown pt doesn't Verified 09/15/23 09:22 know about this one medication for covid Allergy Unknown "red Uncoded 09/15/23 09:22 pills" med for covid - rash Home Meds Home Medications Medication Instructions Recorded Confirmed insulin NPH isoph U-100 human 100 0 unit subcut UD 08/12/23 01/26/24 unit/mL subcutaneous suspension (Humulin N NPH U-100 Insulin (isophane susp)) irbesartan 300 mg tablet 300 mg PO QAM 08/12/23 01/26/24 amlodipine 5 mg tablet 5 mg PO BID 01/26/24 01/26/24 ezetimibe 10 mg tablet 10 mg PO Q OTHER DAY 01/26/24 01/26/24 insulin regular human 100 unit/mL 0 - 160 sliding scale dose subcut 01/26/24 01/26/24 injection solution UD Previous Rx's Medication Instructions Recorded CPAP Machine #1 ea 09/24/19 insulin syringe-needle U-100 1 mL #180 ea 01/24/23 30 gauge x 1/2" (BD Insulin Syringe Ultra-Fine) pen needle, diabetic 32 gauge x #100 ea 01/24/23 5/32" (Easy Comfort Pen Colman) metformin 500 mg tablet,extended 500 mg PO BID 90 days #180 tabs 07/21/23 release 24 hr spironolactone 25 mg tablet 25 mg PO QAM #90 tabs 09/21/23 blood-glucose sensor (FreeStyle #2 ea 09/22/23 Fabio 3 Sensor device) tirzepatide 5 mg/0.5 mL 5 mg (0.5 mL) subcut WK #2 mL 10/17/23 subcutaneous pen injector (Maria Luz) torsemide 20 mg tablet 20 mg PO QAM #90 tabs 10/21/23 gabapentin 100 mg capsule 100 mg PO BID #180 caps 12/02/23 Results & Data (ED) Vital Signs Vital Signs - 24 hr 01/26/24 10:20 01/26/24 10:27 01/26/24 10:30 Temperature 36.8 C Temperature Source Oral Pulse Rate 106 H 114 H 89 Pulse Rate from SpO2 Sensor Respiratory Rate 20 11 L Respiratory Effort / Characteristics Non-Labored Spontaneous Respiratory Depth Normal Blood Pressure 129/81 Blood Pressure Mean 97 Blood Pressure Position Sitting Pulse Oximetry 95 Oxygen Delivery Method Room Air Sepsis Recent Fever Within 48 Hours No Sepsis New/Unexplained Change in Mental Status No Sepsis Action Taken by Nursing No Action Required 01/26/24 10:36 01/26/24 10:40 01/26/24 11:00 Temperature Temperature Source Pulse Rate 93 H 106 H 111 H Pulse Rate from SpO2 Sensor 103 H Respiratory Rate 14 13 Respiratory Effort / Characteristics Respiratory Depth Blood Pressure 121/77 129/81 127/70 Blood Pressure Mean 91 89 Blood Pressure Position Pulse Oximetry 97 Oxygen Delivery Method Sepsis Recent Fever Within 48 Hours Sepsis New/Unexplained Change in Mental Status Sepsis Action Taken by Nursing 01/26/24 11:30 01/26/24 11:54 01/26/24 12:21 Temperature Temperature Source Pulse Rate 87 82 112 H Pulse Rate from SpO2 Sensor 84 100 H Respiratory Rate 11 L 18 16 Respiratory Effort / Characteristics Respiratory Depth Blood Pressure 126/83 129/77 120/75 Blood Pressure Mean 104 94 90 Blood Pressure Position Pulse Oximetry 95 96 95 Oxygen Delivery Method Sepsis Recent Fever Within 48 Hours Sepsis New/Unexplained Change in Mental Status Sepsis Action Taken by Shelter Medications Current Medication List: was personally reviewed by me Laboratory Data Attestation: I reviewed the patient's lab results. 01/26/24 11:10 01/26/24 11:10 Lab Results 01/26/24 Range/Units 11:10 WBC 16.18 H (4.8-10.8) K/ul RBC 4.70 (4.70-6.10) M/uL Hgb 14.5 (14.0-18.0) g/dl Hct 43.6 (42.0-52.0) % MCV 92.8 (80.0-100.0) fL MCH 30.9 (25.0-34.0) pg MCHC 33.3 (32.0-36.0) g/dL RDW Std Deviation 43.4 (36.4-46.3) fL RDW Coeff of Jeremy 12.7 (11.5-14.5) % Plt Count 254 (130-400) K/uL MPV 9.8 (9.4-12.4) fL Immature Gran % (Auto) 1.7 % Neut % (Auto) 83.5 % Lymph % (Auto) 8.5 % [place] % (Auto) 5.7 % Eos % (Auto) 0.2 % Baso % (Auto) 0.4 % Neut # (Auto) 13.50 H (1.40-6.50) K/uL Lymph # (Auto) 1.38 (1.20-3.40) K/uL [place] # (Auto) 0.92 H (0.11-0.59) K/uL Eos # (Auto) 0.04 (0.00-0.50) K/uL Baso # (Auto) 0.06 (0.00-0.20) K/uL Immature Gran # (Auto) 0.28 H (0.01-0.20) K/uL ESR 67 H (0-20) mm/hr Sodium 137 (136-145) mmol/L Potassium 4.6 (3.5-5.1) mmol/L Chloride 102 (98-107) mmol/L Carbon Dioxide 25 (21-32) mmol/L Anion Gap 10 (3-11) BUN 29 H (6-23) mg/dl Creatinine 1.34 (0.6-1.4) mg/dl Est Cr Clr Drug Dosing 84.8 ml/min Est GFR ( Amer) 65.8 ml/min Est GFR (Non-Af Amer) 56.8 ml/min BUN/Creatinine Ratio 21.6 H (10-20) Glucose 213 H (70-99(Fasting)) mg/dl Calcium 8.7 (8.6-10.3) mg/dl Magnesium 1.7 (1.7-2.4) mg/dl Total Bilirubin 1.0 (0.2-1.0) mg/dl AST 9 L (13-39) U/L ALT 7 (7-52) U/L Alkaline Phosphatase 101 (34-104) U/L Troponin I High Sens 7.1 (0-20) pg/ml C-Reactive Protein 2.35 H (0-0.5) mg/dl Total Protein 7.3 (6.0-8.3) gm/dl Albumin 3.8 (3.4-5.0) gm/dl Globulin 3.5 (2.5-4.0) gm/dl Albumin/Globulin Ratio 1.1 (0.9-2) Procalcitonin < 0.02 (0-0.5) ng/ml TSH 2.677 (0.300-4.500) uIu/ml Administered Medications Enoxaparin Sodium (Enoxaparin Inj 40 Mg/0.4 Ml Syr) 40 mg SQ Q24H EMERALD Stop: 02/25/24 15:59 Last Admin: 01/26/24 15:36 Dose: 40 mg Documented By: JADE Magnesium Sulfate/Dextrose (Magnesium Sulfate / D5w) 1 gm in 100 mls @ 50 mls/hr IV Q2H EMERALD Stop: 01/26/24 16:29 Last Admin: 01/26/24 15:35 Dose: 50 mls/hr Documented By: Infusion: 01/26/24 15:25 Dose: Infused Documented By: Admin: 01/26/24 13:16 Dose: 50 mls/hr Documented By: DAVE Lactated Ringer's (Lr) 1,000 mls @ 100 mls/hr IV .Q10H EMERALD Stop: 01/26/24 22:59 Last Admin: 01/26/24 13:20 Dose: 100 mls/hr Documented By: DAVE Discontinued Medications Sodium Chloride (Nss) 1,000 mls @ 999 mls/hr IV .Q1H1M EMERALD Stop: 01/26/24 11:30 Last Infusion: 01/26/24 13:00 Dose: Infused Documented By: Admin: 01/26/24 10:40 Dose: 999 mls/hr Documented By: CC Magnesium Sulfate/Dextrose (Magnesium Sulfate / D5w) 1 gm in 100 mls @ 100 mls/hr IV NOW STA Stop: 01/26/24 12:45 Last Infusion: 01/26/24 13:00 Dose: Infused Documented By: Admin: 01/26/24 11:55 Dose: 100 mls/hr Documented By: DAVE Metoprolol Tartrate (Metoprolol Tartrate 1 Mg/Ml Vial) 5 mg IV NOW STA Stop: 01/26/24 10:30 Last Admin: 01/26/24 10:40 Dose: 5 mg Documented By: CC Imaging Data Radiologist's Impression: Chest X-Ray 01/26/24 10:21 XR chest 1V portable HISTORY: 63 years-old Male weakness COMPARISON: Chest CT 05/18/2023 TECHNIQUE: AP view of the chest FINDINGS: Cardiac silhouette is enlarged. Calcified right upper lobe granuloma. Linear left midlung atelectasis versus scarring. No pneumothorax, pleural effusion or pulmonary edema. Spondylotic spurring of the s[place]. IMPRESSION: No acute process. ACT 112: Negative or not required by law. The above report was generated using voice recognition software. It may contain grammatical, syntax or spelling errors. Electronically signed by: Myke Brandon M.D. 01/26/2024 11:34 AM Discharge Plan Visit Data Chief Complaint: Dizziness Stated Complaint: DIZZINESS ED Provider: Scott Guerrero Discharge Problem: Dizziness, Leukocytosis, Dysrhythmia Patient Disposition: Admitted As Inpatient Condition: Serious Discharge Instructions Interventions: ED Discharge Assessment Last Done: 01/26/24 14:15 Discharge Problem: Leukocytosis Qualifiers: Leukocytosis type: unspecified Qualified Code(s): D72.829 - Elevated white blood cell count, unspecified Dysrhythmia Qualifiers: Arrhythmia type: unspecified cardiac arrhythmia Qualified Code(s): I49.9 - Cardiac arrhythmia, unspecified
[2024-01-26] MEDS: METOPROLOL TARTRATE 1 MG/ML VIAL IV STA (10:40)
[2024-01-26] MEDS: SODIUM CHLORIDE 0.9% 1,000 ML IV SCH (10:40)
[2024-01-26 11:25] LABS: Basophils # (auto) 0.06 K/uL (0.00-0.20); Basophils % (auto) 0.4 %; Eosinophils # (auto) 0.04 K/uL (0.00-0.50); Eosinophils % (auto) 0.2 %; Hematocrit (blood only) 43.6 % (42.0-52.0); Hemoglobin 14.5 g/dl (14.0-18.0); Immature Granulocytes # (auto) 0.28 K/uL (0.01-0.20); Immature Granulocytes % (auto) 1.7 %; Lymphocytes # (auto) 1.38 K/uL (1.20-3.40); Lymphocytes % (auto) 8.5 %; Mean Corpuscular Hemoglobin 30.9 pg (25.0-34.0); Mean Corpuscular Hgb Conc 33.3 g/dL (32.0-36.0); Mean Corpuscular Volume 92.8 fL (80.0-100.0); Mean Platelet Volume 9.8 fL (9.4-12.4); Monocytes # (auto) 0.92 K/uL (0.11-0.59); Monocytes % (auto) 5.7 %; Neutrophils % (auto) 83.5 %; Platelet Count 254 K/uL (130-400); RDW Coefficient of Variation 12.7 % (11.5-14.5); RDW Standard Deviation 43.4 fL (36.4-46.3); White Blood Count 16.18 K/ul (4.8-10.8)
--- NOTE | 2024-01-26 11:35 | XRay Report ---
XR chest 1V portable HISTORY: 63 years-old Male weakness COMPARISON: Chest CT 05/18/2023 TECHNIQUE: AP view of the chest FINDINGS: Cardiac silhouette is enlarged. Calcified right upper lobe granuloma. Linear left midlung atelectasis versus scarring. No pneumothorax, pleural effusion or pulmonary edema. Spondylotic spurring of the s [place]. IMPRESSION: No acute process. ACT 112: Negative or not required by law. The above report was generated using voice recognition software. It may contain grammatical, syntax o r spelling errors. Electronically signed by: Myke Brandon M.D. 01/26/2024 11:34 AM
[2024-01-26 11:43] LABS: Albumin Globulin Ratio 1.1 (0.9-2); Albumin Level 3.8 gm/dl (3.4-5.0); BUN Creatinine Ratio 21.6 (10-20); Calcium 8.7 mg/dl (8.6-10.3); Creatinine Clr Calc Pharmacy 84.8 ml/min; Est GFR (African American) 65.8 ml/min; Est GFR (Non-African American) 56.8 ml/min; Globulin 3.5 gm/dl (2.5-4.0); Magnesium 1.7 mg/dl (1.7-2.4); Potassium 4.6 mmol/L (3.5-5.1); Total Protein 7.3 gm/dl (6.0-8.3)
[2024-01-26 11:49] LABS: Troponin I High Sensitivity 7.1 pg/ml (0-20)
[2024-01-26] MEDS: MAGNESIUM SULFATE / D5W 1 GM/100 ML BAG IV STA (11:55)
[2024-01-26 11:59] LABS: Thyroid Stimulating Hormone 2.677 uIu/ml (0.300-4.500)
--- NOTE | 2024-01-26 12:18 | History & Physical Report ---
Date of Service January 26, 2024 Assessment & Plan (1) Arrhythmia: Plan: Admit to the PCU on telemetry Currently stable and asymptomatic while at rest Presented to the ED via EMS today for ongoing episodes of lightheadedness, nausea, and dyspnea on exertion since 01/22/2024 Since arrival to the ED he has had episodes of tachycardia, bradycardia, and possible episodes of atrial fibrillation Other than a magnesium of 1.7, electrolytes have been stable High-sensitivity troponin is within normal limits, patient has been without chest pain and stable on room air, has been hemodynamically stable throughout Patient was given 5 mg IV Lopressor during an episode of tachycardia with heart rate in the 140s, was also given 1 g IV mag sulfate and 1 L NSS The ED spoke with cardiology who recommended continued monitoring on telemetry and obtaining echocardiogram for further assessment Cardiology expressed to the ED that the patient may eventually require pacemaker if he has ongoing episodes of tachycardia and bradycardia Will give an additional 2 g IV mag sulfate at the time of admission to keep level new to, potassium currently at 4.6 Cannot rule out undiagnosed infection possibly causing this arrhythmia due to his leukocytosis with left shift See leukocytosis plan for workup Will give 1 L LR on admission as he appears slightly dry on exam Will get TTE on admission Cardiology consult has been placed SQ Lovenox for DVT prophylaxis Will keep n.p.o. until he is evaluated by cardiology AM CBC, CMP, mag, PT/INR (2) Leukocytosis: Plan: Patient noted to have a leukocytosis of 16 with neutrophil predominance of 13 Lactate ordered at time of admission is stable at 1.5 Chest x-ray is negative for signs of infection, patient denies recent diarrhea or urinary symptoms Does have chronic wounds on the bilateral shins which do not appear grossly infected at this time Patient should be able to provide a urine sample shortly will follow Blood cultures were ordered at the time of admission Will add Pro-Lizandro, ESR, CRP as well Obtaining x-rays of the bilateral tib-fib/fib to monitor for bone involvement of chronic lower extremity wounds If we can confirm a source of infection we will start empiric antibiotics but hold off for now as he is stable Wound care nurse consult placed for chronic bilateral lower extremity wounds (3) Lightheadedness: Plan: Patient has been experiencing intermittent episodes of lightheadedness both at rest and with exertion Likely related to his arrhythmias noted since arrival Nonfocal neurologic exam Rest of care per arrhythmia plan (4) Chronic ITP (idiopathic thrombocytopenia): Plan: Platelets currently stable at 254 Monitor daily CBC (5) Hypertension: Plan: Currently stable For now we will hold amlodipine, irbesartan, spironolactone, and torsemide and today cardiac workup and cardiology consult (6) Uncontrolled diabetes mellitus with retinopathy: Plan: Will monitor BSG every 6 hours while NPO, goal is [id number] Normally takes 14 units Lantus daily, will convert to 6 units twice daily for now as unsure how long he will be n.p.o. Will start CF of 40 and CF of 12 every 6 hours for now Pharmacy glycemic consult has been placed for assistance Plan The patient was discussed with Dr. Durand at the time of admission History of Present Illness Chief Complaint: Dizziness, nausea, intermittent SOB Primary Care Provider: PATRICIA Torres Terrance is a 63-year-old male with a past medical history of morbid obesity, severe sleep apnea on at bedtime BiPAP, chronic ITP, uncontrolled DM, hypertension, chronic lower extremity venous stasis who presented to the [facility] ED via EMS on 01/26/2024 for ongoing dizziness, nausea, and intermittent shortness of breath since 01/22/2024. He was noted to be tachycardic heart rate of 106 on arrival but otherwise stable. Labs were significant for leukocytosis of 16 with neutrophil predominance of 13, stable platelet count, creatinine of 1.34 (baseline is near 1.0), BUN of 29, mag of 1.7, and high-sensitivity troponin within normal limits. Patient was sitting in bed in no acute distress at the time of exam. He states that since Tuesday he has had recurrent episodes of lightheadedness/dizziness both at rest and with exertion. He describes it as if he feels as though he is going to pass out but denies losing consciousness. Has had intermittent episodes of nausea without vomiting and dyspnea on exertion as well. Symptoms increased in severity this a.m. which is why he called EMS. Denies recent fever, chills, chest pain, cough, dysuria/hematuria/increased urinary frequency, diarrhea, and recent trauma. When asked, he notes that he has some "small" wounds on the bilateral shins which he has been cleaning and dressing himself. He has a previous history of right first and left second toe amputations due to previous infections. He currently is asymptomatic at rest. When asked, he feels like he has not been drinking as many fluids as he normally does due to being symptomatic when standing and walking. He has otherwise been taking his medications as prescribed including diuretics. He clarifies that he did not have a chance to take his a.m. medications prior to EMS arrival. He is a full code. Please refer to Dr. Durand's attestation for any changes to the treatment plan Allergies Allergy/AdvReac Type Severity Reaction Status Date / Time bacitracin AdvReac Unknown GI UPSET Verified 09/15/23 09:22 neomycin AdvReac Unknown GI UPSET Verified 09/15/23 09:22 polymyxin B AdvReac Unknown GI UPSET Verified 09/15/23 09:22 rosuvastatin AdvReac Unknown Joint Pain Verified 09/15/23 09:22 sulfamethoxazole AdvReac Unknown pt reports Verified 09/15/23 09:22 doesn't know about this one trimethoprim AdvReac Unknown pt doesn't Verified 09/15/23 09:22 know about this one medication for covid Allergy Unknown "red Uncoded 09/15/23 09:22 pills" med for covid - rash Home Medications Medication Instructions Recorded Confirmed Type CPAP Machine #1 ea 09/24/19 08/31/23 Rx insulin syringe-needle U-100 1 mL #180 ea 01/24/23 08/31/23 Rx 30 gauge x 1/2" (BD Insulin Syringe Ultra-Fine) pen needle, diabetic 32 gauge x #100 ea 01/24/23 08/31/23 Rx 5/32" (Easy Comfort Pen [place]) cholecalciferol (vitamin D3) 1,250 50,000 unit PO WEEKLY 8 weeks #8 06/20/23 09/15/23 Rx mcg (50,000 unit) capsule caps metformin 500 mg tablet,extended 500 mg PO BID 90 days #180 tabs 07/21/23 09/15/23 Rx release 24 hr peg 3350-sod sulf,[id number] See Rx Instructions PO .COMPLEX #2 08/09/23 08/31/23 Rx 178.7-7.3-0.5-1.12-0.9 gram oral mL soln (Suflave) insulin NPH isoph U-100 human 100 0 unit subcut UD 08/12/23 09/15/23 History unit/mL subcutaneous suspension (Humulin N NPH U-100 Insulin (isophane susp)) irbesartan 300 mg tablet 300 mg PO QAM 08/12/23 09/15/23 History ezetimibe 10 mg tablet 10 mg PO .COMPLEX #45 tabs 09/21/23 Rx spironolactone 25 mg tablet 25 mg PO QAM #90 tabs 09/21/23 Rx blood-glucose sensor (FreeStyle #2 ea 09/22/23 Rx Fabio 3 Sensor device) tirzepatide 5 mg/0.5 mL 5 mg (0.5 mL) subcut WK #2 mL 10/17/23 Rx subcutaneous pen injector (Mounjaro) torsemide 20 mg tablet 20 mg PO QAM #90 tabs 10/21/23 Rx amlodipine 5 mg tablet 5 mg PO HS #90 tabs 12/01/23 Rx gabapentin 100 mg capsule 100 mg PO BID #180 caps 12/02/23 Rx insulin regular human 100 unit/mL 150 sliding scale dose subcut 01/09/24 Rx injection solution .COMPLEX #30 mL Past Med/Surg History Problem List (Updated 01/26/24 @ 13:04 by Ariel Nash PA-C) Lightheadedness Arrhythmia Osteoarthritis of knees, bilateral Vertebral osteophyte Degeneration of thoracic intervertebral disc Leukocytosis Foot pain Arthritis of foot Chronic ITP (idiopathic thrombocytopenia) Nocturnal hypoxemia (Chronic) Hypertension Uncontrolled diabetes mellitus with retinopathy (Chronic) Osteomyelitis of forefoot (Chronic) on abx therapy, following Dr. Martinez ([facility]) Hyperlipidemia (Chronic) BMI 50.0-59.9, adult (Chronic) Venous stasis ulcers of both lower extremities (Acute) Diabetic foot ulcer associated with type 2 diabetes mellitus (Chronic) Arthritis (Chronic) Medical History History of COVID-19 History of fall within past 90 days History of anesthesia reaction History of colon polyps Hyperlipidemia Diabetic leg ulcer Morbid obesity with BMI of 50.0-59.9, adult Acute ITP Thrombocytopenia JOSHUA (obstructive sleep apnea) Peripheral neuropathy Osteoarthritis Chronic back pain Edema Anemia Hypertension Chronic venous insufficiency Diabetes Surgical History Hx of colonoscopy S/P lymph node biopsy History of amputation S/P foot surgery, right Family History Father Acute myocardial infarction Alcohol abuse Tobacco use Diabetes Myocardial infarction Mother Brain cancer Social History Smoking Status: Never smoker Second Hand Exposure: No; Do You Dip or Chew Tobacco: No; Hx Alcohol Use: No Hx Substance Use: No Preferred Language: Wolof Communication Ability: Effective Visual Impairment: No Limitations Hearing Ability: Normal Cash Register Operator Required: No Beliefs That Will Affect Care: None marital status: single Current Living Situation: Alone current occupational status: unemployed and disabled How many Children do You have: 0 Feels Safe at Home: Yes Diet: regular Diet Comment: regular caffeine: Yes during the past year weight has: decreased > 10 lbs Dental Care, Regularly: No Physical Activity Frequency: 1-2 Times per Week Physical Activity Frequency Comment: walks in the summertime Seatbelt Use: never Sunscreen Use: No Assistive Devices: CPAP and Other Physical Exam 2 Physical Exam: Physical Exam: General: In no acute distress, stated age, morbidly obese, poor hygiene, non- toxic appearing HEENT: Normocephalic, atraumatic, no scleral icterus, pupils around round, symmetrical, and reactive to light, dry mucus membranes, trachea midline, no thyromegaly Chest/Pulm: No respiratory distress, symmetrical chest expansion, clear breath sounds throughout Cardiac: regular rate, irregular rhythm, no murmurs noted Abdomen: Negative for ascites and bruising, normoactive bowel sounds, soft, non-tender to palpation throughout Musculoskeletal: Symmetrical and without signs of acute trauma, upper and lower extremities with full ROM, no atrophy, spasticity, or flaccidity Extremities: Radial, dorsalis pedis, and posterior tibial pulses are intact and symmetrical, no edema noted in the BL LE's Skin: See attached pictures below for BL dorman wounds, otherwise no signs of infection on skin exam Neuro: Alert and oriented to person, place, month, year, and president, no focal defects, no tremors noted Psych: No acute distress, calm and cooperative during the exam Results & Data Results & Data Vital Signs (Past 12 Hours) Vital Signs Temp Pulse Resp BP Pulse Ox O2 Del Method 01/26/24 10:40 106 H 129/81 01/26/24 10:27 114 H 01/26/24 10:20 36.8 C 106 H 20 129/81 95 Room Air Laboratory Results Abnormal lab results 01/26/24 Range/Units 11:10 WBC 16.18 H (4.8-10.8) K/ul Neut # (Auto) 13.50 H (1.40-6.50) K/uL [place] # (Auto) 0.92 H (0.11-0.59) K/uL Immature Gran # (Auto) 0.28 H (0.01-0.20) K/uL BUN 29 H (6-23) mg/dl BUN/Creatinine Ratio 21.6 H (10-20) Glucose 213 H (70-99(Fasting)) mg/dl AST 9 L (13-39) U/L Diagnostic Findings Chest X-Ray 01/26/24 10:21 XR chest 1V portable HISTORY: 63 years-old Male weakness COMPARISON: Chest CT 05/18/2023 TECHNIQUE: AP view of the chest FINDINGS: Cardiac silhouette is enlarged. Calcified right upper lobe granuloma. Linear left midlung atelectasis versus scarring. No pneumothorax, pleural effusion or pulmonary edema. Spondylotic spurring of the s[place]. IMPRESSION: No acute process. ACT 112: Negative or not required by law. The above report was generated using voice recognition software. It may contain grammatical, syntax or spelling errors. Electronically signed by: Myke Brandon M.D. 01/26/2024 11:34 AM ECG Additional Comments: Sinus tachycardia with Premature ventricular complexes or Fusion complexes Left axis deviation Right bundle branch block Abnormal ECG When compared with ECG of 26-JUN-2021 09:15, Significant changes have occurred Code Status & VTE Plan Code Status Full code VTE Prophylaxis Plan VTE Prophylaxis will be ordered: Yes PG Care Time/CCT Total # of Minutes Spent Total Time Spent with Patient: Total time spent is greater than 50% in coordination of care (as documented) at patient's floor/unit and/or counseling patient: Coding [place] [address] INT INP/OBS CARE 3/75MIN Patient Type Established History Comprehensive Exam Comprehensive Medical Decision Making High Complexity Diagnoses Arrhythmia I49.9 Leukocytosis D72.829 Lightheadedness R42 Chronic ITP (idiopathic thrombocytopenia) D69.3 Hypertension I10 Uncontrolled diabetes mellitus with retinopathy E11.319; E11.65
[2024-01-26] MEDS: MAGNESIUM SULFATE / D5W 1 GM/100 ML BAG IV SCH (13:16)
[2024-01-26] MEDS: LACTATED RINGER'S 1,000 ML IV SCH (13:20)
[2024-01-26] MEDS ORDERED: PHARMACY GLYCEMIC MGMT CONSULT PRN (13:21)
[2024-01-26] MEDS ORDERED: GLUCOSE 40% GEL 15 GM TUBE PO PRN (13:21)
[2024-01-26] MEDS ORDERED: GLUCOSE 10 TAB/TUBE PO PRN (13:21)
[2024-01-26] MEDS ORDERED: CARBOHYDRATES FOR HYPOGLYCEMIA PO PRN (13:21)
[2024-01-26] MEDS ORDERED: GLUCAGON FOR INJ 1 MG VIAL SQ PRN (13:21)
[2024-01-26] MEDS ORDERED: DEXTROSE 50% 50 ML SYRINGE IV PRN (13:21)
--- NOTE | 2024-01-26 13:40 | Electrocardiogram Report ---
Test Reason : Blood Pressure : / mmHG Vent. Rate : 112 BPM Atrial Rate : 112 BPM P-R Int : 182 ms QRS Dur : 158 ms QT Int : 366 ms P-R-T Axes : 052 -41 017 degrees QTc Int : 499 ms Sinus rhythm with runs of ectopic atrial tachycardia Left axis deviation Right bundle branch block Abnormal ECG Confirmed by Zion Saba ([id number]) on 01/26/2024 1:40:39 PM Referred By: REFERRED SELF Confirmed By:Jaxon Saba
--- NOTE | 2024-01-26 14:13 | XRay Report ---
RIGHT TIBIA AND FIBULA 2 VIEWS CLINICAL HISTORY: Chronic wounds. FINDINGS: AP and lateral views of the right tibia and fibula are obtained. No prior studies are avail able for comparison at the time of dictation. The skeletal structures are osteopenic. No fracture is seen. No erosive change is identified. Benign appearing cortical thickening is seen throughout the fi bula. The knee and ankle joints are grossly maintained noting arthritic change. An os trigonum is inc identally noted. Soft tissue edema is present in the calf. No soft tissue gas or radiodense foreign b alissa is identified. IMPRESSION: Soft tissue swelling with no acute bony abnormality identified. Electronically signed by: Scott Everett M.D. 01/26/2024 2:11 PM
[2024-01-26 14:35] LABS: Appearance Urine Clear (Clear); Bilirubin Urine Negative (Negative); Blood Urine Negative (Negative); Color Urine Yellow; Glucose Urine UA Negative (Negative); Ketones Urine Trace (Negative); Leukocyte Esterase Urine Negative (Negative); Nitrite Urine Negative (Negative); Protein Urine Negative (Negative); Specific Gravity Urine 1.014 (1.000-1.030); Urobilinogen Urine Negative (Negative); pH Urine 6.5 (4.5-7.5)
--- NOTE | 2024-01-26 14:44 | XRay Report ---
LEFT TIBIA AND FIBULA 2 VIEWS CLINICAL HISTORY: Chronic wounds. FINDINGS: AP and lateral views of the left tibia and fibula are obtained. No prior studies are availa ble for comparison at the time of dictation. The skeletal structures are osteopenic. No fracture is s een. No erosive change is identified. Benign appearing cortical thickening is seen along the fibular shaft. The knee and ankle joints are grossly maintained noting arthritic change. Soft tissue edema i s present throughout the calf. No soft tissue gas or radiodense foreign body is identified. IMPRESSION: Soft tissue swelling with no acute bony abnormality identified. Electronically signed by: Scott Everett M.D. 01/26/2024 2:43 PM
[2024-01-26 14:50] LABS: C Reactive Protein 2.35 mg/dl (0-0.5)
[2024-01-26] MEDS: ENOXAPARIN INJ 40 MG/0.4 ML SYR SQ SCH (15:36)
[2024-01-26] MEDS ORDERED: Nursing to Pharmacy Communication SCH (16:30)
[2024-01-26] MEDS: INSULIN ASPART PER UNIT CHARGE SC SCH ×2 (16:30→17:00)
[2024-01-26] MEDS: Continuous Glucose Monitor SCH (16:55)
[2024-01-26] MEDS: INSULIN HUMAN NPH SC ONE (17:00)
--- NOTE | 2024-01-26 18:23 | XCELERA ---
[id number] \\[id number]
--- NOTE | 2024-01-26 19:52 | Cardiology Consultation ---
Date of Consultation January 26, 2024 Assessment & Plan (1) Ectopic atrial tachycardia: (2) Right bundle branch block: Plan 1. Ectopic atrial tachycardia: He appears to have fairly frequent episodes of an ectopic atrial tachycardia. I do not believe this is atrial fibrillation or an atrial flutter. This appears to account for his symptoms leading up to admission. This began fairly acutely. He does have some very mild left atrial enlargement. Unfortunately, he also has some element of conduction disease at baseline. This appears to have been somewhat progressive over the years. This includes a 1st degree AV block and right bundle branch block. I think we will try some diltiazem 1st as this was likely the most benign intervention. This can be a substitute for his amlodipine. If that fails we could consider antiarrhythmics, flecainide being the primary choice. However, given his conduction is will need to be cautious. He would be a good candidate for catheter based therapy especially given the frequent episodes. This may need to be performed at a different institution. 2. Right bundle-branch block: He also has a first-degree AV block. He has had some progression of conduction disease over the years based on prior EKGs. Preserved LV systolic function. No significant hypertrophy on echocardiogram. History of Present Illness Reason for Consultation: Tachycardia, presyncope Requesting Physician: Kizzy Attending Physician: Juan Durand MD History of Present Illness The patient is a 63-year-old gentleman without a known history of significant cardiac disease who presented to the hospital for symptoms of presyncope. Patient states that for few days he has been noticing episodes of lightheadedness and palpitation. He felt this was associated with the recent increase in temperatures. However, this morning he had severe dizziness and lightheadedness to the point where he felt he would pass out. This was associated with some palpitations and mild dyspnea. No associated chest pain. He contacted ambulance was felt to be in atrial fibrillation. In the emergency room he was noted to have periods of tachycardia alternating with sinus rhythm and bradycardia. He was administered a few doses of metoprolol intravenously and admitted for observation. Patient states that in general he is very sedentary. He has some difficulty with his feet and has had some toe amputations. This limits his activity as does knee discomfort. 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 However, he avoid strenuous activity. As result, no exertional chest pain or limiting dyspnea. Currently he is feeling well. He has not had significant dizziness or lightheadedness while lying in bed. He has not been very ambulatory since he was admitted to the hospital. Allergies Allergy/AdvReac Type Severity Reaction Status Date / Time bacitracin AdvReac Unknown GI UPSET Verified 09/15/23 09:22 neomycin AdvReac Unknown GI UPSET Verified 09/15/23 09:22 polymyxin B AdvReac Unknown GI UPSET Verified 09/15/23 09:22 rosuvastatin AdvReac Unknown Joint Pain Verified 09/15/23 09:22 sulfamethoxazole AdvReac Unknown pt reports Verified 09/15/23 09:22 doesn't know about this one trimethoprim AdvReac Unknown pt doesn't Verified 09/15/23 09:22 know about this one medication for covid Allergy Unknown "red Uncoded 09/15/23 09:22 pills" med for covid - rash Home Medications Medication Instructions Recorded Confirmed Type CPAP Machine #1 ea 09/24/19 08/31/23 Rx insulin syringe-needle U-100 1 mL #180 ea 01/24/23 08/31/23 Rx 30 gauge x 1/2" (BD Insulin Syringe Ultra-Fine) pen needle, diabetic 32 gauge x #100 ea 01/24/23 08/31/23 Rx 5/32" (Easy Comfort Pen [place]) metformin 500 mg tablet,extended 500 mg PO BID 90 days #180 tabs 07/21/23 01/26/24 Rx release 24 hr insulin NPH isoph U-100 human 100 0 unit subcut UD 08/12/23 01/26/24 History unit/mL subcutaneous suspension (Humulin N NPH U-100 Insulin (isophane susp)) irbesartan 300 mg tablet 300 mg PO QAM 08/12/23 01/26/24 History spironolactone 25 mg tablet 25 mg PO QAM #90 tabs 09/21/23 01/26/24 Rx blood-glucose sensor (FreeStyle #2 ea 09/22/23 Rx Fabio 3 Sensor device) tirzepatide 5 mg/0.5 mL 5 mg (0.5 mL) subcut WK #2 mL 10/17/23 01/26/24 Rx subcutaneous pen injector (Maria Luz) torsemide 20 mg tablet 20 mg PO QAM #90 tabs 10/21/23 01/26/24 Rx gabapentin 100 mg capsule 100 mg PO BID #180 caps 12/02/23 01/26/24 Rx amlodipine 5 mg tablet 5 mg PO BID 01/26/24 01/26/24 History ezetimibe 10 mg tablet 10 mg PO Q OTHER DAY 01/26/24 01/26/24 History insulin regular human 100 unit/mL 0 - 160 sliding scale dose subcut 01/26/24 01/26/24 History injection solution UD Patient History Medical History History of COVID-19 > 1 yr ago. History of fall within past 90 days a few mon ago/injured back (had f/u and told healed), 1 broken rib, concussion. History of anesthesia reaction with toe surgery, woke up during gave me more to go back to sleep. with prior colonoscopy, woke up during gave me more to go back to sleep. History of colon polyps Hyperlipidemia Diabetic leg ulcer bilat. - patient cares for them himself at this time, denies an infection. currently is still there (09/15/23) Morbid obesity with BMI of 50.0-59.9, adult Acute ITP hx Thrombocytopenia hx JOSUHA (obstructive sleep apnea) cpap Peripheral neuropathy Osteoarthritis Chronic back pain Edema legs always. Anemia hx Hypertension Chronic venous insufficiency Diabetes Type 2 - IDDM Surgical History Hx of colonoscopy S/P lymph node biopsy History of amputation S/P foot surgery, right Family History Father Acute myocardial infarction Alcohol abuse Tobacco use Diabetes Myocardial infarction Mother Brain cancer Social History Smoking Status: Never smoker Second Hand Exposure: No; Do You Dip or Chew Tobacco: No; Hx Alcohol Use: No Hx Substance Use: No Preferred Language: Citizen Of [place] Communication Ability: Effective Visual Impairment: No Limitations Hearing Ability: Normal Director Of Finance Required: No Beliefs That Will Affect Care: None marital status: single Current Living Situation: Alone current occupational status: unemployed and disabled How many Children do You have: 0 Other Information That Helps Us Care for You: No Feels Safe at Home: Yes Safety Concerns: Feels Safe At This Time Diet: regular Diet Comment: regular caffeine: Yes during the past year weight has: decreased > 10 lbs Dental Care, Regularly: No Physical Activity Frequency: 1-2 Times per Week Physical Activity Frequency Comment: walks in the summertime Seatbelt Use: never Sunscreen Use: No Assistive Devices: CPAP Review of Systems Review of Systems: Per HPI Physical Exam Physical Exam: The patient is alert and oriented. Mood and affect appeared normal. He answered all questions appropriately. HEENT: Pupils are equal and reactive to light and accommodation. Extraocular movements are intact. The sclerae are anicteric. Neuro: Cranial nerves intact Lungs: Clear to auscultation bilaterally. He has good air movement without use of accessory muscles. No rales wheezes or rhonchi. Cardiac: Irregular rhythm. Normal S1 and S2. No murmurs on examination. Pulses: The patient has palpable radial pulses bilaterally that are equal in intensity Extremities: He has trophic changes on both feet. An abrasion on the right anterior tibial surface. Some mild erythema. Skin: I did not appreciate any rashes on examination today. Results & Data Vital Signs (Past 12 Hours) Vital Signs Temp Pulse Resp BP BP Pulse Ox O2 Del Method 01/26/24 15:43 85 01/26/24 14:38 Room Air 01/26/24 14:38 18 145/73 H Room Air 01/26/24 13:00 95 H 16 96 01/26/24 12:39 78 14 97 01/26/24 12:21 112 H 16 120/75 95 01/26/24 11:54 82 18 129/77 96 01/26/24 11:30 87 11 L 126/83 95 01/26/24 11:00 111 H 13 127/70 97 01/26/24 10:40 106 H 129/81 01/26/24 10:36 93 H 14 121/77 01/26/24 10:30 89 11 L 01/26/24 10:27 114 H 01/26/24 10:20 36.8 C 106 H 20 129/81 95 Room Air Laboratory Results Abnormal Lab Results 01/26/24 01/26/24 01/26/24 11:10 12:49 14:15 WBC 16.18 H RBC 4.70 Hgb 14.5 Hct 43.6 MCV 92.8 MCH 30.9 MCHC 33.3 RDW Std Deviation 43.4 RDW Coeff of Jeremy 12.7 Plt Count 254 MPV 9.8 Immature Gran % (Auto) 1.7 Neut % (Auto) 83.5 Lymph % (Auto) 8.5 Mccracken % (Auto) 5.7 Eos % (Auto) 0.2 Baso % (Auto) 0.4 Neut # (Auto) 13.50 H Lymph # (Auto) 1.38 Mccracken # (Auto) 0.92 H Eos # (Auto) 0.04 Baso # (Auto) 0.06 Immature Gran # (Auto) 0.28 H ESR 67 H Sodium 137 Potassium 4.6 Chloride 102 Carbon Dioxide 25 Anion Gap 10 BUN 29 H Creatinine 1.34 Est Cr Clr Drug Dosing 84.8 Est GFR ( Amer) 65.8 Est GFR (Non-Af Amer) 56.8 BUN/Creatinine Ratio 21.6 H Glucose 213 H POC Glucose Lactate 1.5 Calcium 8.7 Magnesium 1.7 Total Bilirubin 1.0 AST 9 L ALT 7 Alkaline Phosphatase 101 Troponin I High Sens 7.1 C-Reactive Protein 2.35 H Total Protein 7.3 Albumin 3.8 Globulin 3.5 Albumin/Globulin Ratio 1.1 Procalcitonin < 0.02 TSH 2.677 Urine Color Yellow Urine Appearance Clear Urine pH 6.5 Ur Specific Charlo 1.014 Urine Protein Negative Urine Glucose (UA) Negative Urine Ketones Trace H Urine Blood Negative Urine Nitrite Negative Urine Bilirubin Negative Urine Urobilinogen Negative Ur Leukocyte Esterase Negative 01/26/24 16:12 WBC RBC Hgb Hct MCV MCH MCHC RDW Std Deviation RDW Coeff of Jeremy Plt Count MPV Immature Gran % (Auto) Neut % (Auto) Lymph % (Auto) Mccracken % (Auto) Eos % (Auto) Baso % (Auto) Neut # (Auto) Lymph # (Auto) Mccracken # (Auto) Eos # (Auto) Baso # (Auto) Immature Gran # (Auto) ESR Sodium Potassium Chloride Carbon Dioxide Anion Gap BUN Creatinine Est Cr Clr Drug Dosing Est GFR ( Amer) Est GFR (Non-Af Amer) BUN/Creatinine Ratio Glucose POC Glucose 202 H Lactate Calcium Magnesium Total Bilirubin AST ALT Alkaline Phosphatase Troponin I High Sens C-Reactive Protein Total Protein Albumin Globulin Albumin/Globulin Ratio Procalcitonin TSH Urine Color Urine Appearance Urine pH Ur Specific Charlo Urine Protein Urine Glucose (UA) Urine Ketones Urine Blood Urine Nitrite Urine Bilirubin Urine Urobilinogen Ur Leukocyte Esterase Diagnostic Findings Echocardiogram demonstrated normal LV systolic function mild biatrial dilation. No significant valvular heart disease. Chest x-ray did not demonstrate any acute cardiopulmonary process PG Care Time/CCT Total # of Minutes Spent Total Time Spent with Patient: Total time spent is greater than 50% in coordination of care (as documented) at patient's floor/unit and/or counseling patient: Coding Level of Care Code 54889 IN/OBS CONSULT LVL 4,60M Diagnoses Ectopic atrial tachycardia I47.19 Right bundle branch block I45.10
[2024-01-26] MEDS ORDERED: LANTUS PER UNIT CHARGE SQ SCH (21:00)
[2024-01-26] MEDS: dilTIAZem HCL 30 MG TAB PO SCH (21:12)
[2024-01-26] MEDS: GABAPENTIN 100 MG CAP PO SCH (21:12)
[2024-01-27] MEDS: INSULIN ASPART PER UNIT CHARGE SC SCH (00:16)
[2024-01-27 06:59] LABS: Basophils # (auto) 0.06 K/uL (0.00-0.20); Basophils % (auto) 0.5 %; Eosinophils % (auto) 0.8 %; Hematocrit (blood only) 41.4 % (42.0-52.0); Immature Granulocytes # (auto) 0.17 K/uL (0.01-0.20); Immature Granulocytes % (auto) 1.4 %; Lymphocytes # (auto) 2.49 K/uL (1.20-3.40); Lymphocytes % (auto) 20.3 %; Mean Corpuscular Hgb Conc 33.8 g/dL (32.0-36.0); Mean Corpuscular Volume 91.6 fL (80.0-100.0); Mean Platelet Volume 10.2 fL (9.4-12.4); Monocytes # (auto) 0.69 K/uL (0.11-0.59); Monocytes % (auto) 5.6 %; Neutrophils # (auto) 8.77 K/uL (1.40-6.50); Neutrophils % (auto) 71.4 %; Platelet Count 246 K/uL (130-400); RDW Coefficient of Variation 12.8 % (11.5-14.5); RDW Standard Deviation 42.5 fL (36.4-46.3); Red Blood Count 4.52 M/uL (4.70-6.10); White Blood Count 12.28 K/ul (4.8-10.8)
[2024-01-27 07:27] LABS: Albumin Globulin Ratio 1.1 (0.9-2); Albumin Level 3.5 gm/dl (3.4-5.0); BUN Creatinine Ratio 23.5 (10-20); Bilirubin,Total 0.9 mg/dl (0.2-1.0); Calcium 8.4 mg/dl (8.6-10.3); Creatinine Clr Calc Pharmacy 115.6 ml/min; Est GFR (African American) 96.1 ml/min; Est GFR (Non-African American) 82.9 ml/min; Globulin 3.3 gm/dl (2.5-4.0); Magnesium 2.4 mg/dl (1.7-2.4); Potassium 4.5 mmol/L (3.5-5.1); Total Protein 6.8 gm/dl (6.0-8.3)
[2024-01-27 07:37] LABS: Estimated Average Glucose 148 mg/dl; Hemoglobin A1C 6.8 % (4.5-5.6)
[2024-01-27] MEDS: INSULIN HUMAN NPH SC SCH (08:32)
[2024-01-27] MEDS: EZETIMIBE 10 MG TAB PO SCH (08:37)
[2024-01-27 08:55] LABS: INR 0.9 (0.9-1.1); Prothrombin Time 10.3 Seconds (9.0-12.0)
[2024-01-27] MEDS ORDERED: dilTIAZem HCL 120 MG CAPCR PO SCH (10:05)
--- NOTE | 2024-01-27 12:24 | Hospitalist Progress Note ---
Date of Service January 27, 2024 Assessment & Plan (1) Arrhythmia: Plan: Ectopic atrial beats noted on admission EKG. Appreciate cardiology consultation and recommendations. Short acting diltiazem was started but EKG today reveals several pauses. Diltiazem has been stopped and cardiology notified. They will see him later today. Cardiac echo reveals normal left ventricular ejection fraction with mild left and right atrial enlargement. (2) Leukocytosis: Plan: Mild. No overt infection. Serial labs (3) Lightheadedness: Plan: Possibly due to atrial ectopy. Will follow (4) Chronic ITP (idiopathic thrombocytopenia): Plan: Stable. Serial labs (5) Hypertension: Plan: Currently holding antihypertensives. (6) Uncontrolled diabetes mellitus with retinopathy: Plan: ADA diet. Sliding scale coverage. Continue basal insulin therapy Plan Hopeful discharge to home within the next day or 2 Admission and Anticipated Discharge Date Admission Date: January 26, 2024 Subjective Alert and oriented. No distress. Cardiology consultation and recommendations appreciated. He was started on diltiazem 30 mg 3 times a day but EKG today reveals several pauses. Diltiazem has been discontinued and cardiology notified. They will see him today again. Cardiac echo reveals normal left ventricular ejection fraction and wall motion with mild left atrial and mild right atrial enlargement. Glucose 130 this morning. Review of Systems 2 Review of Systems: Constitutional-no fever or chills ENT-no blurred vision, no double vision, no epistaxis, no sore throat Respiratory-no cough, no wheezing, no shortness of breath Cardiac-no chest pain or shortness of breath. He did notice palpitations. No syncope GI-no nausea, vomiting, diarrhea, melena, hematochezia -no urinary retention, no urinary incontinence, no dysuria, no hematuria Musculoskeletal-no joint pain, no muscle tenderness Skin-no bruising, no rashes, no pruritus Neuro-no isolated weakness, no paresthesia, no weakness Psych-no depression, no anxiety Physical Exam 2 Physical Exam: General-alert and oriented x3, no fever, no chills HEENT-head atraumatic and normocephalic, pupils equal and reactive to light, extraocular muscles intact Neck-no lymphadenopathy or thyromegaly, trachea midline Chest-clear to auscultation. No rales, wheezing or rhonchi Cardiac-irregularrhythm, controlled rate, normal S1 and S2 Abdomen-normal bowel sounds, no hepatosplenomegaly Extremities-no cyanosis, clubbing, or edema Neuro-cranial nerves II through XII intact, motor and sensory function within normal limits, strength symmetrical, no focal deficits Psych-normal affect, normal mood Results & Data Results & Data Vital Signs (Past 12 Hours) Vital Signs Temp Pulse Pulse Resp BP BP Pulse Ox 01/27/24 10:55 36.7 C 77 18 125/76 94 01/27/24 07:30 79 01/27/24 07:06 36.6 C 82 18 136/77 95 01/27/24 03:01 108 H 20 92 01/27/24 02:55 36.6 C 85 18 106/68 97 O2 Del Method O2 Flow Rate 01/27/24 10:55 Room Air 01/27/24 07:30 01/27/24 07:06 Room Air 01/27/24 03:01 2 01/27/24 02:55 CPAP Laboratory Results 01/27/24 06:16 01/27/24 06:16 PG Care Time/CCT Total # of Minutes Spent Total Time Spent with Patient: Total time spent is greater than 50% in coordination of care (as documented) at patient's floor/unit and/or counseling patient: Coding Level of Care Code 10775 SUB INP/OBS CARE 3/50MIN Diagnoses Arrhythmia I49.9 Leukocytosis D72.829 Lightheadedness R42 Chronic ITP (idiopathic thrombocytopenia) D69.3 Hypertension I10 Uncontrolled diabetes mellitus with retinopathy E11.319; E11.65
--- NOTE | 2024-01-27 12:54 | Electrocardiogram Report ---
Test Reason : Blood Pressure : / mmHG Vent. Rate : 084 BPM Atrial Rate : 097 BPM P-R Int : 240 ms QRS Dur : 172 ms QT Int : 418 ms P-R-T Axes : 000 -25 041 degrees QTc Int : 493 ms Sinus rhythm with 1st degree A-V block episodes of ectopic atrial tachycrdia Right bundle branch block Abnormal ECG Confirmed by Zion Saba ([id number]) on 01/27/2024 12:54:04 PM Referred By: Juan Durand Confirmed By:Jaxon Saba
--- NOTE | 2024-01-27 18:48 | Discharge Summary ---
Date of Service January 27, 2024 Admission HPI Per Admitting Provider Terrance is a 63-year-old male with a past medical history of morbid obesity, severe sleep apnea on at bedtime BiPAP, chronic ITP, uncontrolled DM, hypertension, chronic lower extremity venous stasis who presented to the [facility] ED via EMS on 01/26/2024 for ongoing dizziness, nausea, and intermittent shortness of breath since 01/22/2024. He was noted to be tachycardic heart rate of 106 on arrival but otherwise stable. Labs were significant for leukocytosis of 16 with neutrophil predominance of 13, stable platelet count, creatinine of 1.34 (baseline is near 1.0), BUN of 29, mag of 1.7, and high-sensitivity troponin within normal limits. Patient was sitting in bed in no acute distress at the time of exam. He states that since Tuesday he has had recurrent episodes of lightheadedness/dizziness both at rest and with exertion. He describes it as if he feels as though he is going to pass out but denies losing consciousness. Has had intermittent episodes of nausea without vomiting and dyspnea on exertion as well. Symptoms increased in severity this a.m. which is why he called EMS. Denies recent fever, chills, chest pain, cough, dysuria/hematuria/increased urinary frequency, diarrhea, and recent trauma. When asked, he notes that he has some "small" wounds on the bilateral shins which he has been cleaning and dressing himself. He has a previous history of right first and left second toe amputations due to previous infections. He currently is asymptomatic at rest. When asked, he feels like he has not been drinking as many fluids as he normally does due to being symptomatic when standing and walking. He has otherwise been taking his medications as prescribed including diuretics. He clarifies that he did not have a chance to take his a.m. medications prior to EMS arrival. He is a full code. Admission Exam Per Admitting Provider Physical Exam: General: In no acute distress, stated age, morbidly obese, poor hygiene, non- toxic appearing HEENT: Normocephalic, atraumatic, no scleral icterus, pupils around round, symmetrical, and reactive to light, dry mucus membranes, trachea midline, no thyromegaly Chest/Pulm: No respiratory distress, symmetrical chest expansion, clear breath sounds throughout Cardiac: regular rate, irregular rhythm, no murmurs noted Abdomen: Negative for ascites and bruising, normoactive bowel sounds, soft, non- tender to palpation throughout Musculoskeletal: Symmetrical and without signs of acute trauma, upper and lower extremities with full ROM, no atrophy, spasticity, or flaccidity Extremities: Radial, dorsalis pedis, and posterior tibial pulses are intact and symmetrical, no edema noted in the BL LE's Skin: See attached pictures below for BL dorman wounds, otherwise no signs of infection on skin exam Neuro: Alert and oriented to person, place, month, year, and president, no focal defects, no tremors noted Psych: No acute distress, calm and cooperative during the exam Principal Diagnosis Ectopic atrial tachycardia Discharge Exam The patient is alert and oriented. Mood and affect appeared normal. He answered all questions appropriately. HEENT: Pupils are equal and reactive to light and accommodation. Extraocular movements are intact. The sclerae are anicteric. Neuro: Cranial nerves intact Lungs: Clear to auscultation bilaterally. He has good air movement without use of accessory muscles. No rales wheezes or rhonchi. Cardiac: Irregular rhythm. Normal S1 and S2. No murmurs on examination. Pulses: The patient has palpable radial pulses bilaterally that are equal in intensity Extremities: He has trophic changes on both feet. An abrasion on the right anterior tibial surface. Some mild erythema. Skin: I did not appreciate any rashes on examination today. Discharge Data Allergies Allergy/AdvReac Type Severity Reaction Status Date / Time bacitracin AdvReac Unknown GI UPSET Verified 09/15/23 09:22 neomycin AdvReac Unknown GI UPSET Verified 09/15/23 09:22 polymyxin B AdvReac Unknown GI UPSET Verified 09/15/23 09:22 rosuvastatin AdvReac Unknown Joint Pain Verified 09/15/23 09:22 sulfamethoxazole AdvReac Unknown pt reports Verified 09/15/23 09:22 doesn't know about this one trimethoprim AdvReac Unknown pt doesn't Verified 09/15/23 09:22 know about this one medication for covid Allergy Unknown "red Uncoded 09/15/23 09:22 pills" med for covid - rash Consultations 01/26/24 12:01 ED Decision to Admit Stat 01/26/24 12:56 Consult Cardiology Routine 01/27/24 17:31 Burn CD for patient Routine Ordered Studies Echocardiogram: Echocardiogram 01/26/2024 demonstrated normal LV systolic function with mild biatrial dilation. No significant valvular heart disease. Images were suboptimal and there was a technical difficulty with the study due to the patient's body habitus. Hospital Course (1) Ectopic atrial tachycardia: (2) Right bundle branch block: Plan 1. Ectopic atrial tachycardia: His initial presentation was consistent with a nearly incessant ectopic atrial tachycardia and associated right bundle branch block aberrancy. He was known to have an element of 1st degree AV block and incomplete right bundle branch block at baseline. This was documented on prior EKGs. Patient symptoms were fairly severe and primarily included presyncope and weakness. He was initially given some intravenous doses of metoprolol with little effect. He was noted on initial presentation to have some brief conversion pauses. However, he only had a few sinus beats at that time. On the night of admission he was started on low-dose diltiazem every 8 hours. However, by the following morning his conversion pauses were worse. He was suffering some episodes of significant bradycardia. There also continue to be frequent runs of atrial tachycardia. The diltiazem was discontinued. We discussed additional options for treatment to include catheter based therapy of what appears to be a focal ectopic atrial tachycardia or implantation of a pacemaker to facilitate more aggressive medical therapy. He was interested in exploring the option of catheter based therapy. As our facility cannot perform all ablation is of this type we elected to transfer to [facility] for evaluation. 2. Right bundle-branch block: He also has a first-degree AV block. He has had some progression of conduction disease over the years based on prior EKGs. Preserved LV systolic function. No significant hypertrophy on echocardiogram. 3. Chronic idiopathic thrombocytopenia: Platelet count 246,000 4. Poorly controlled diabetes mellitus type 2. Home regimen includes insulin, metformin and tirzepatide. Current complications include peripheral neuropathy, diabetic foot ulcers and prior toe amputations. 5. Severe obstructive sleep apnea, noncompliant with CPAP therapy. 6. Hypertension: Patient on amlodipine, irbesartan, spironolactone and torsemide as an outpatient. Amlodipine was held to facilitate institution of diltiazem. Total Time Total Time Spent Total Time Spent (In Minutes): 40 Discharge Plan Discharge Items Patient Disposition: Transfer Acute Care Hospital Reason For Visit: ARRHYTHMIA, DIZZINESS, LEUKOCYTOSIS Discharge Diagnosis: Ectopic atrial tachycardia Condition on Discharge: Serious Activity: Per Instructions section Activity Comment: No strenuous exertion Bathing: No limitations Exercise/Sports: None Non-emergency contact: Evaporator Call non-emergency contact if: you have any medication questions and your symptoms worsen Follow-up/Referrals: Jeremy Chang CRNP [Primary Care Provider] - Diet: Carb Consistent or DM2 Addtl Attending Provider Instructions: none Pending Studies at Discharge: Yes Studies:: Being transferred for possible ablation Stand-Alone Forms: My [facility] Skilled Items Patient informed of condition?: Yes DNR: No Discharge Level of Care: Skilled Communicable Disease: No Discharge Prognosis: Stable Lines: Peripheral IV Urinary Catheter: No Medications and DC Order Prescriptions: Continued (DME) pen needle, diabetic [Easy Comfort Pen [place]] 32 gauge x 5/32" needle See Rx Instructions .Route Qty: 100 1RF Rx Instructions: use to inject victoza daily (DME) insulin syringe-needle U-100 [BD Insulin Syringe Ultra-Fine] 1 mL 30 gauge x 1/2" syringe See Dose Instructions .ROUTE .MEDSUPPLY Qty: 180 5RF Rx Instructions: USE WITH INSULIN DAILY 5-6 needles per day spironolactone 25 mg tablet 25 mg PO QAM Qty: 90 2RF (DME) FreeStyle Fabio 3 Sensor Device See Rx Instructions .Route Qty: 2 5RF Rx Instructions: Change every 14 days DX: E11.319 Mounjaro 5 mg/0.5 mL pen injector 5 mg subcut WK Qty: 2 4RF torsemide 20 mg tablet 20 mg PO QAM Qty: 90 3RF gabapentin 100 mg capsule 100 mg PO BID Qty: 180 3RF (DME) CPAP Machine Misc See Rx Instructions .ROUTE .MEDSUPPLY Qty: 1 0RF Rx Instructions: BIPAP 23/19 WITH 4L O2. HEATED HUMIDITY. BIPAP SUPPLIES. MASK OF CHOICE WHEN NEEDED. ADAM 99. CARE PLUS O2. metformin 500 mg tablet extended release 24 hr 500 mg PO BID 90 Days Qty: 180 3RF Rx Instructions: TAKE ONE TABLET BY MOUTH TWICE DAILY Humulin N NPH U-100 Insulin 100 unit/mL suspension 0 unit subcut UD Patient Comments: sliding scale coverage depending on what i eat, no less than twice a day , sometimes mix regular with nph Rx Instructions: use up to 400 units a day per sliding scale - As of 01-26-24 unable to verify this medication w/ patient/pharmacy irbesartan 300 mg tablet 300 mg PO QAM amlodipine 5 mg tablet 5 mg PO BID Rx Instructions: TAKE ONE TABLET BY MOUTH TWICE DAILY insulin regular human 100 unit/mL solution 0 - 160 sliding scale dose subcut UD Rx Instructions: Sliding scale, sometimes mix regular with nph MDD 160 UNITS PER DAY ezetimibe 10 mg tablet 10 mg PO Q OTHER DAY Rx Instructions: 10 mg orally EVERY OTHER DAY; Discharge Orders: Discharge Order (Routine); Ordered 01/27/24 Ordered By: Zion Saba Admission Data Admit Date/Time: 01/26/24 12:27 Attending Provider: Julian Henderson Admit Provider: Juan Durand Primary Care Provider: Jeremy Chang Other Providers: Juan Durand; Zion Saba Coding Level of Care Code 83637 INP/OBS DISCH >30 MIN Diagnoses Ectopic atrial tachycardia I47.19 Right bundle branch block I45.10
[2024-01-27] MEDS: ACETAMINOPHEN 325 MG TAB PO PRN (23:34)
[2024-01-28 06:18] LABS: BUN Creatinine Ratio 23.5 (10-20); Calcium 8.7 mg/dl (8.6-10.3); Creatinine Clr Calc Pharmacy 110.8 ml/min; Est GFR (African American) 91.5 ml/min; Potassium 4.4 mmol/L (3.5-5.1)
--- NOTE | 2024-01-28 11:35 | Hospitalist Progress Note ---
Date of Service January 28, 2024 Assessment & Plan (1) Arrhythmia: Plan: Ectopic atrial beats noted on admission EKG. Appreciate cardiology consultation and recommendations. Short acting diltiazem was started but follow-up EKG reveals either pauses or type I second-degree AV block. Diltiazem was then discontinued. Transfer to [facility] for ablation procedure is pending. Cardiac echo reveals normal left ventricular ejection fraction with mild left and right atrial enlargement. (2) Leukocytosis: Plan: Mild. No overt infection. Serial labs (3) Lightheadedness: Plan: Possibly due to atrial ectopy. Will follow (4) Chronic ITP (idiopathic thrombocytopenia): Plan: Stable. Serial labs (5) Hypertension: Plan: Currently holding antihypertensives. (6) Uncontrolled diabetes mellitus with retinopathy: Plan: ADA diet. Sliding scale coverage. Continue basal insulin therapy (7) Morbid obesity: Plan: BMI is greater than 40. Significant weight loss recommended Plan Awaiting transfer to [facility] Admission and Anticipated Discharge Date Admission Date: January 26, 2024 Subjective Alert and oriented. No distress. Cardiology has recommended transfer to [facility] for an ablation procedure. Repeat EKG today reveals sinus rhythm with either occasional pauses or second-degree AV block type I. Diltiazem has been discontinued. Review of Systems 2 Review of Systems: Constitutional-no fever or chills ENT-no blurred vision, no double vision, no epistaxis, no sore throat Respiratory-no cough, no wheezing, no shortness of breath Cardiac-no chest pain or shortness of breath. He did notice palpitations. No syncope GI-no nausea, vomiting, diarrhea, melena, hematochezia -no urinary retention, no urinary incontinence, no dysuria, no hematuria Musculoskeletal-no joint pain, no muscle tenderness Skin-no bruising, no rashes, no pruritus Neuro-no isolated weakness, no paresthesia, no weakness Psych-no depression, no anxiety Physical Exam 2 Physical Exam: General-alert and oriented x3, no fever, no chills HEENT-head atraumatic and normocephalic, pupils equal and reactive to light, extraocular muscles intact Neck-no lymphadenopathy or thyromegaly, trachea midline Chest-clear to auscultation. No rales, wheezing or rhonchi Cardiac-irregularrhythm, controlled rate, normal S1 and S2 Abdomen-normal bowel sounds, no hepatosplenomegaly Extremities-no cyanosis, clubbing, or edema Neuro-cranial nerves II through XII intact, motor and sensory function within normal limits, strength symmetrical, no focal deficits Psych-normal affect, normal mood Results & Data Results & Data Vital Signs (Past 12 Hours) Vital Signs Temp Pulse Pulse Resp BP Pulse Ox O2 Del Method 01/28/24 11:14 36.8 C 56 L 18 126/67 94 Room Air 01/28/24 07:45 69 01/28/24 07:08 36.5 C 94 H 16 127/79 95 Room Air 01/28/24 02:32 36.5 C 65 18 126/79 96 Room Air Laboratory Results 01/27/24 06:16 01/28/24 05:24 PG Care Time/CCT Total # of Minutes Spent Total Time Spent with Patient: Total time spent is greater than 50% in coordination of care (as documented) at patient's floor/unit and/or counseling patient: Coding Level of Care Code 37030 SUB INP/OBS CARE 2/35MIN Diagnoses Arrhythmia I49.9 Leukocytosis D72.829 Lightheadedness R42 Chronic ITP (idiopathic thrombocytopenia) D69.3 Hypertension I10 Uncontrolled diabetes mellitus with retinopathy E11.319; E11.65 Morbid obesity E66.01
--- NOTE | 2024-01-28 11:58 | Electrocardiogram Report ---
Test Reason : Blood Pressure : / mmHG Vent. Rate : 078 BPM Atrial Rate : 090 BPM P-R Int : 248 ms QRS Dur : 172 ms QT Int : 410 ms P-R-T Axes : 000 -16 050 degrees QTc Int : 467 ms Sinus rhythm with marked sinus arrhythmia with 1st degree A-V block Right bundle branch block Abnormal ECG When compared with ECG of 27-JAN-2024 08:23, No significant change was found Confirmed by Michael Heard ([id number]) on 01/28/2024 11:58:06 AM Referred By: Juan Durand Confirmed By:Michael Heard
[2024-01-29 07:23] LABS: BUN Creatinine Ratio 25.3 (10-20); Calcium 8.6 mg/dl (8.6-10.3); Creatinine Clr Calc Pharmacy 123.9 ml/min; Est GFR (African American) 105.1 ml/min; Est GFR (Non-African American) 90.6 ml/min; Potassium 4.5 mmol/L (3.5-5.1)
--- NOTE | 2024-01-29 13:53 | Hospitalist Progress Note ---
Date of Service January 29, 2024 Assessment & Plan (1) Arrhythmia: Plan: Ectopic atrial beats noted on admission EKG. Appreciate cardiology consultation and recommendations. Short acting diltiazem was started but follow-up EKG reveals either pauses or type I second-degree AV block. Diltiazem was then discontinued. Transfer to [facility] for ablation procedure is pending. Cardiac echo reveals normal left ventricular ejection fraction with mild left and right atrial enlargement. (2) Leukocytosis: Plan: Mild. No overt infection. Serial labs (3) Lightheadedness: Plan: Possibly due to atrial ectopy. Will follow (4) Chronic ITP (idiopathic thrombocytopenia): Plan: Stable. Serial labs (5) Hypertension: Plan: Currently holding antihypertensives. (6) Uncontrolled diabetes mellitus with retinopathy: Plan: ADA diet. Sliding scale coverage. Continue basal insulin therapy (7) Morbid obesity: Plan: BMI is greater than 40. Significant weight loss recommended Plan Awaiting transfer to [facility] Admission and Anticipated Discharge Date Admission Date: January 26, 2024 Subjective Alert and oriented. No new problems. Cardiac echo reveals normal ejection fraction with mild left and right atrial enlargement. Glucose 112 Review of Systems 2 Review of Systems: Constitutional-no fever or chills ENT-no blurred vision, no double vision, no epistaxis, no sore throat Respiratory-no cough, no wheezing, no shortness of breath Cardiac-no chest pain or shortness of breath. He did notice palpitations. No syncope GI-no nausea, vomiting, diarrhea, melena, hematochezia -no urinary retention, no urinary incontinence, no dysuria, no hematuria Musculoskeletal-no joint pain, no muscle tenderness Skin-no bruising, no rashes, no pruritus Neuro-no isolated weakness, no paresthesia, no weakness Psych-no depression, no anxiety Physical Exam 2 Physical Exam: General-alert and oriented x3, no fever, no chills HEENT-head atraumatic and normocephalic, pupils equal and reactive to light, extraocular muscles intact Neck-no lymphadenopathy or thyromegaly, trachea midline Chest-clear to auscultation. No rales, wheezing or rhonchi Cardiac-irregularrhythm, controlled rate, normal S1 and S2 Abdomen-normal bowel sounds, no hepatosplenomegaly Extremities-no cyanosis, clubbing, or edema Neuro-cranial nerves II through XII intact, motor and sensory function within normal limits, strength symmetrical, no focal deficits Psych-normal affect, normal mood Results & Data Results & Data Vital Signs (Past 12 Hours) Vital Signs Temp Pulse Pulse Resp BP BP Pulse Ox 01/29/24 10:56 37.1 C 60 16 130/75 96 01/29/24 07:39 73 01/29/24 07:36 36.7 C 68 16 144/78 H 93 01/29/24 02:14 36.6 C 70 16 118/76 94 O2 Del Method 01/29/24 10:56 Room Air 01/29/24 07:39 01/29/24 07:36 Room Air 01/29/24 02:14 Room Air Laboratory Results 01/27/24 06:16 01/29/24 06:13 PG Care Time/CCT Total # of Minutes Spent Total Time Spent with Patient: Total time spent is greater than 50% in coordination of care (as documented) at patient's floor/unit and/or counseling patient: Coding Level of Care Code 63119 SUB INP/OBS CARE 2/35MIN Diagnoses Arrhythmia I49.9 Leukocytosis D72.829 Lightheadedness R42 Chronic ITP (idiopathic thrombocytopenia) D69.3 Hypertension I10 Uncontrolled diabetes mellitus with retinopathy E11.319; E11.65 Morbid obesity E66.01
[2024-01-30 06:44] LABS: BUN Creatinine Ratio 20.8 (10-20); Calcium 8.6 mg/dl (8.6-10.3); Creatinine Clr Calc Pharmacy 111.4 ml/min; Est GFR (African American) 92.6 ml/min; Est GFR (Non-African American) 79.9 ml/min; Potassium 4.5 mmol/L (3.5-5.1)
--- NOTE | 2024-01-30 08:15 | Discharge Summary ---
Date of Service January 30, 2024 Admission HPI Per Admitting Provider Terrance is a 63-year-old male with a past medical history of morbid obesity, severe sleep apnea on at bedtime BiPAP, chronic ITP, uncontrolled DM, hypertension, chronic lower extremity venous stasis who presented to the [facility] ED via EMS on 01/26/2024 for ongoing dizziness, nausea, and intermittent shortness of breath since 01/22/2024. He was noted to be tachycardic heart rate of 106 on arrival but otherwise stable. Labs were significant for leukocytosis of 16 with neutrophil predominance of 13, stable platelet count, creatinine of 1.34 (baseline is near 1.0), BUN of 29, mag of 1.7, and high-sensitivity troponin within normal limits. Patient was sitting in bed in no acute distress at the time of exam. He states that since Tuesday he has had recurrent episodes of lightheadedness/dizziness both at rest and with exertion. He describes it as if he feels as though he is going to pass out but denies losing consciousness. Has had intermittent episodes of nausea without vomiting and dyspnea on exertion as well. Symptoms increased in severity this a.m. which is why he called EMS. Denies recent fever, chills, chest pain, cough, dysuria/hematuria/increased urinary frequency, diarrhea, and recent trauma. When asked, he notes that he has some "small" wounds on the bilateral shins which he has been cleaning and dressing himself. He has a previous history of right first and left second toe amputations due to previous infections. He currently is asymptomatic at rest. When asked, he feels like he has not been drinking as many fluids as he normally does due to being symptomatic when standing and walking. He has otherwise been taking his medications as prescribed including diuretics. He clarifies that he did not have a chance to take his a.m. medications prior to EMS arrival. He is a full code. Principal Diagnosis PAT with bradycardia and pauses, near syncope Discharge Exam General-alert and oriented x3, no fever, no chills HEENT-head atraumatic and normocephalic, pupils equal and reactive to light, extraocular muscles intact Neck-no lymphadenopathy or thyromegaly, trachea midline Chest-clear to auscultation. No rales, wheezing or rhonchi Cardiac-irregularrhythm, controlled rate, normal S1 and S2 Abdomen-normal bowel sounds, no hepatosplenomegaly Extremities-no cyanosis, clubbing, or edema Neuro-cranial nerves II through XII intact, motor and sensory function within normal limits, strength symmetrical, no focal deficits Psych-normal affect, normal mood Discharge Data Allergies Allergy/AdvReac Type Severity Reaction Status Date / Time bacitracin AdvReac Unknown GI UPSET Verified 09/15/23 09:22 neomycin AdvReac Unknown GI UPSET Verified 09/15/23 09:22 polymyxin B AdvReac Unknown GI UPSET Verified 09/15/23 09:22 rosuvastatin AdvReac Unknown Joint Pain Verified 09/15/23 09:22 sulfamethoxazole AdvReac Unknown pt reports Verified 09/15/23 09:22 doesn't know about this one trimethoprim AdvReac Unknown pt doesn't Verified 09/15/23 09:22 know about this one medication for covid Allergy Unknown "red Uncoded 09/15/23 09:22 pills" med for covid - rash Consultations 01/26/24 12:01 ED Decision to Admit Stat 01/26/24 12:56 Consult Cardiology Routine 01/27/24 17:31 Burn CD for patient Routine Hospital Course (1) Arrhythmia: Ectopic atrial beats noted on admission EKG. Appreciate cardiology consultation and recommendations. Short acting diltiazem was started but follow-up EKG reveals either pauses or type I second-degree AV block. Diltiazem was then discontinued. Transfer to [facility] for ablation procedure is pending. Cardiac echo reveals normal left ventricular ejection fraction with mild left and right atrial enlargement. (2) Leukocytosis: Mild. No overt infection. Serial labs (3) Lightheadedness: Possibly due to atrial ectopy. Will follow (4) Chronic ITP (idiopathic thrombocytopenia): Stable. Serial labs (5) Hypertension: Currently holding antihypertensives. (6) Uncontrolled diabetes mellitus with retinopathy: ADA diet. Sliding scale coverage. Continue basal insulin therapy (7) Morbid obesity: BMI is greater than 40. Significant weight loss recommended Plan Transfer to [facility] today, January 29 Total Time Total Time Spent Total Time Spent (In Minutes): 45-minute Discharge Plan Discharge Items Patient Disposition: Transfer Acute Care Hospital Reason For Visit: ARRHYTHMIA, DIZZINESS, LEUKOCYTOSIS Discharge Diagnosis: Ectopic atrial tachycardia Condition on Discharge: Fair Activity: Per Instructions section Activity Comment: No strenuous exertion Bathing: No limitations Exercise/Sports: None Non-emergency contact: Administrative Resident Call non-emergency contact if: you have any medication questions and your sym ptoms worsen Follow-up/Referrals: Jeremy Chang CRNP [Primary Care Provider] - Diet: Carb Consistent or DM2 Addtl Attending Provider Instructions: none Pending Studies at Discharge: Yes Studies:: Being transferred for possible ablation Stand-Alone Forms: My [facility] Skilled Items Patient informed of condition?: Yes DNR: No Discharge Level of Care: Skilled Communicable Disease: No Discharge Prognosis: Stable Lines: Peripheral IV Urinary Catheter: No Medications and DC Order Prescriptions: Continued (DME) pen needle, diabetic [Easy Comfort Pen [place]] 32 gauge x 5/32" needle See Rx Instructions .Route Qty: 100 1RF Rx Instructions: use to inject victoza daily (DME) insulin syringe-needle U-100 [BD Insulin Syringe Ultra-Fine] 1 mL 30 gauge x 1/2" syringe See Dose Instructions .ROUTE .MEDSUPPLY Qty: 180 5RF Rx Instructions: USE WITH INSULIN DAILY 5-6 needles per day spironolactone 25 mg tablet 25 mg PO QAM Qty: 90 2RF (DME) FreeStyle Fabio 3 Sensor Device See Rx Instructions .Route Qty: 2 5RF Rx Instructions: Change every 14 days DX: E11.319 Mounjaro 5 mg/0.5 mL pen injector 5 mg subcut WK Qty: 2 4RF torsemide 20 mg tablet 20 mg PO QAM Qty: 90 3RF gabapentin 100 mg capsule 100 mg PO BID Qty: 180 3RF (DME) CPAP Machine Misc See Rx Instructions .ROUTE .MEDSUPPLY Qty: 1 0RF Rx Instructions: BIPAP 23/19 WITH 4L O2. HEATED HUMIDITY. BIPAP SUPPLIES. MASK OF CHOICE WHEN NEEDED. ADAM 99. CARE PLUS O2. metformin 500 mg tablet extended release 24 hr 500 mg PO BID 90 Days Qty: 180 3RF Rx Instructions: TAKE ONE TABLET BY MOUTH TWICE DAILY Humulin N NPH U-100 Insulin 100 unit/mL suspension 0 unit subcut UD Patient Comments: sliding scale coverage depending on what i eat, no less than twice a day , sometimes mix regular with nph Rx Instructions: use up to 400 units a day per sliding scale - As of 01-26-24 unable to verify this medication w/ patient/pharmacy irbesartan 300 mg tablet 300 mg PO QAM amlodipine 5 mg tablet 5 mg PO BID Rx Instructions: TAKE ONE TABLET BY MOUTH TWICE DAILY insulin regular human 100 unit/mL solution 0 - 160 sliding scale dose subcut UD Rx Instructions: Sliding scale, sometimes mix regular with nph MDD 160 UNITS PER DAY ezetimibe 10 mg tablet 10 mg PO Q OTHER DAY Rx Instructions: 10 mg orally EVERY OTHER DAY; Discharge Orders: Discharge Order (Routine); Ordered 01/27/24 Ordered By: Zion Saba Admission Data Admit Date/Time: 01/26/24 12:27 Attending Provider: Julian Henderson Admit Provider: Juan Durand Primary Care Provider: Jeremy Chang Other Providers: Juan Durand; Zion Saba Coding Level of Care Code 05086 INP/OBS DISCH >30 MIN Diagnoses Arrhythmia I49.9 Leukocytosis D72.829 Lightheadedness R42 Chronic ITP (idiopathic thrombocytopenia) D69.3 Hypertension I10 Uncontrolled diabetes mellitus with retinopathy E11.319; E11.65 Morbid obesity E66.01
== END 2024-01-30 09:55 | disposition short-term general hospital (02) | DRG 309 ==
LOC: ED 10:12 → 2S 12:27 → SUATTDRO 12:27 → 2S 14:15

== ENCOUNTER 2024-07-04 15:23 | Observation (INO) ==
--- NOTE | 2024-07-04 15:52 | Emergency Department Note ---
Impression & Plan Infected stasis ulcer of left lower extremity, Leukocytosis, Fall down stairs, Forehead laceration, Forehead contusion, Chest wall muscle strain ED Provider Note NAME: DAVID QUINTANA AGE: 63 SEX: M : 1960 ARRIVES VIA: Ambulance INFORMANT: Patient ED PROVIDER(S): Arnold Trevizo MD CHIEF COMPLAINT: Fall downstairs. PLAN: Disposition: Home MEDICAL DECISION MAKING: The patient is a pleasant 63-year-old gentleman with a past medical history of morbid obesity, chronic ITP, hypertension, uncontrolled diabetes, osteomyelitis, venous stasis ulcers, hyperlipidemia who presents to emergency department via EMS for evaluation of a mechanical fall when he misjudged steps going down into his basement and fell forward sliding down 5 steps hitting his forehead. Patient denies loss of consciousness. He reports lower anterior chest and upper abdominal pain and felt as though he had the wind knocked out of him. He denies any neck or back pain. He otherwise denies any recent illness including fevers, chills, cough, congestion, GI or symptoms. He reports there was significant bleeding from his forehead but this eventually was controlled. Patient is not on anticoagulation. On evaluation the patient is no distress, afebrile stable vital signs. Patient has an approximate 7 cm contusion and abrasion of the right forehead where there is a 1 cm superficial laceration where there is periodic bloody ooze. The patient appears hypervolemic with 2+ bilateral lower extremity pitting edema. Patient has been dressing his chronic venous stasis ulcers on his own and his left leg has a gauze with purulent crusting hold in place by painters tape. Ulcerations were cultured. EKG without overt acute ischemia. Plain film of the left wrist negative for fracture or dislocation. WBC 28K with neutrophilia and left shift. H/H similar to prior. Platelets within normal limits. Chemistry without metabolic acidosis. Lactic acid 1.6, within normal limits. AST is 55, nonspecific and LFTs otherwise unremarkable. CPK 284, mildly above normal and nonspecific. Lipase is not elevated. Procalcitonin is undetectable. UA without evidence infection or gross hematuria. CT imaging of the head, face, chest, abdomen pelvis as well as CT L- spine were performed were negative for acute traumatic findings. Soft tissue swelling of the forehead is described consistent with the patient's forehead hematoma. Incidental note is made of a nonspecific 2.3 x 1.5 x 1.9 cm right adrenal mass. Given the patient's leukocytosis which may impart be due to the patient's fall and trauma as acute phase reactant given the patient's chronic left lower extremity venous stasis ulcers wound which exhibit purulent drainage and are foul-smelling suspect may be a component of related to wound infection. Thus, patient was in agreement with plan for admission for further management of this. Blood cultures obtained empiric treatment initiated with Zosyn and daptomycin. Forehead laceration and abrasion cleaned by nursing and a two suture placed for repair of forehead laceration per NATE [place]'s documentation. Tetanus status was updated. Case was discussed with NANETTE Lang hospitalist, who will evaluate the patient for admission. Further management per admitting team. Triage Nursing notes reviewed and agree them. Prior/external medical records reviewed Vital Signs: reviewed Differential diagnosis: Fracture, dislocation, contusion, intra-abdominal, pneumothorax, intrathoracic, intracranial, neurologic, compartment syndrome, rhabdomyolysis, as well as other pathologies. ER treatment provided: See below. Diagnostics interpreted by me: ECG: Normal sinus rhythm, 70 bpm, no ectopy, right bundle branch block, no overt ST ovation or depression, QTc 457, QRS 158., Similar to prior. Cardiac Monitoring: An order for continuous cardiac monitoring was placed and demonstrated Normal sinus rhythm, 70 bpm, no ectopy Laboratory studies: See below Imaging studies: See below Consultation(s): NANETTE Lang hospitalist, HPI: The patient is a pleasant 63-year-old gentleman with a past medical history of morbid obesity, chronic ITP, hypertension, uncontrolled diabetes, osteomyelitis, venous stasis ulcers, hyperlipidemia who presents to emergency department via EMS for evaluation of a mechanical fall when he misjudged steps going down into his basement and fell forward sliding down 5 steps hitting his forehead. Patient denies loss of consciousness. He reports lower anterior chest and upper abdominal pain and felt as though he had the wind knocked out of him. He denies any neck or back pain. He otherwise denies any recent illness including fevers, chills, cough, congestion, GI or symptoms. He reports there was significant bleeding from his forehead but this eventually was controlled. Patient is not on anticoagulation. ROS: See above HPI for pertinent positives & negatives. A total of 10 systems reviewed and were otherwise negative. VITALS:See Below PHYSICAL EXAMINATION: GENERAL: Awake, alert, uncomfortable-appearing, in no distress, BMI 50.4. HENT: Normocephalic. 7 cm contusion and abrasion of the right forehead where there is a 1 cm superficial laceration where there is periodic bloody ooze. Oropharynx with dry mucous membranes and otherwise unremarkable. EYES: Normal conjunctiva. Sclera non-icteric. Right periorbital edema without ocular involvement. NECK: Supple. No nuchal rigidity. FROM. No JVD. No midline tenderness to palpation or step-offs. RESPIRATORY: Clear to auscultation. CARDIAC: Regular rate, normal rhythm. Extremities warm and well perfused. Pulses equal. ABDOMEN: Soft, non-distended. Mild epigastric discomfort without discrete tenderness to palpation. No rebound or guarding. No masses. MUSCULOSKELETAL: Chest examination reveals mild anterior and lower chest wall tenderness without bony crepitus, ecchymosis or hematoma. The back is symmetrical on inspection without obvious abnormality. No midline tenderness to palpation or step-offs. There is no CVA tenderness to palpation. Ecchymosis and abrasions of the dorsum of the left hand without gross deformity. Full range of motion intact. LOWER EXTREMITIES: 2+ bilateral lower extremity pitting edema. Chronic venous stasis ulcers of left lower leg with purulent crusting. No crepitus. NEURO: Normal sensorium. No sensory or motor deficits noted. SKIN: No rash or jaundice noted. Arnold Trevizo MD Past Med/Surg History Problem List Chest wall muscle strain (Acute) Forehead contusion (Acute) Forehead laceration (Acute) Fall down stairs (Acute) Leukocytosis (Acute) Infected stasis ulcer of left lower extremity (Acute) Elevated creatine kinase Fall Morbid obesity Right bundle branch block Ectopic atrial tachycardia Dysrhythmia (Acute) Leukocytosis (Acute) Dizziness (Acute) Lightheadedness Arrhythmia Osteoarthritis of knees, bilateral Vertebral osteophyte Degeneration of thoracic intervertebral disc Leukocytosis Foot pain Arthritis of foot Chronic ITP (idiopathic thrombocytopenia) Nocturnal hypoxemia (Chronic) Hypertension Uncontrolled diabetes mellitus with retinopathy (Chronic) Osteomyelitis of forefoot (Chronic) on abx therapy, following Dr. Martinez ([facility]) Hyperlipidemia (Chronic) BMI 50.0-59.9, adult (Chronic) Venous stasis ulcers of both lower extremities (Acute) Diabetic foot ulcer associated with type 2 diabetes mellitus (Chronic) Arthritis (Chronic) Medical History History of ITP thinks in 2020 > [place] Hx of atrial tachycardia controlled now since ablation > follows with Dr. Ashkan Benítez in [place] History of COVID-2022 History of anesthesia reaction with toe surgery, woke up during gave me more to go back to sleep. with prior colonoscopy, woke up during gave me more to go back to sleep. History of colon polyps Hyperlipidemia Diabetic leg ulcer left leg- patient cares for them himself at this time, denies an infection. currently is still there (09/15/23) Morbid obesity with BMI of 50.0-59.9, adult Thrombocytopenia hx JOSHUA (obstructive sleep apnea) cpap Peripheral neuropathy Osteoarthritis Chronic back pain Edema legs always. Anemia hx Hypertension Chronic venous insufficiency Diabetes Type 2 - IDDM Surgical History History of cardiac cath no stents > Feb 2024 History of cardiac radiofrequency ablation Feb 2024 at [facility] Hx of colonoscopy S/P lymph node biopsy needle aspiration/pt is not sure about this. 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 Required: No Beliefs That Will Affect Care: None marital status: single Current Living Situation: Alone current occupational status: unemployed and disabled How many Children do You have: 0 Feels Safe at Home: Yes Diet: regular Diet Comment: regular caffeine: Yes during the past year weight has: decreased > 10 lbs Dental Care, Regularly: No Physical Activity Frequency: 1-2 Times per Week Physical Activity Frequency Comment: walks in the summertime Seatbelt Use: never Sunscreen Use: No Assistive Devices: BiPap and Glasses Allergies Allergies Allergy/AdvReac Type Severity Reaction Status Date / Time nirmatrelvir [From Paxlovid] Allergy Intermediate Rash Verified 05/23/24 14:58 ritonavir [From Paxlovid] Allergy Intermediate Rash Verified 05/23/24 14:58 bacitracin AdvReac Unknown GI UPSET Verified 05/23/24 14:58 neomycin AdvReac Unknown GI UPSET Verified 05/23/24 14:58 polymyxin B AdvReac Unknown Gastrointestinal Verified 05/23/24 14:58 Upset rosuvastatin AdvReac Unknown Joint Pain Verified 05/23/24 14:58 sulfamethoxazole AdvReac Unknown pt reports Verified 05/23/24 14:58 doesn't know about this one trimethoprim AdvReac Unknown pt doesn't Verified 05/23/24 14:58 know about this one Home Meds Home Medications Medication Instructions Recorded Confirmed ezetimibe 10 mg tablet 10 mg PO Q OTHER DAY 01/26/24 07/04/24 metoprolol succinate 25 mg 25 mg PO QAM 04/13/24 07/04/24 tablet,extended release 24 hr (Toprol XL) Previous Rx's Medication Instructions Recorded CPAP Machine #1 ea 09/24/19 insulin syringe-needle U-100 1 mL #180 ea 01/24/23 30 gauge x 1/2" (BD Insulin Syringe Ultra-Fine) pen needle, diabetic 32 gauge x #100 ea 01/24/23 5/32" (Easy Comfort Pen [place]) metformin 500 mg tablet,extended 500 mg PO BID 90 days #180 tabs 07/21/23 release 24 hr spironolactone 25 mg tablet 25 mg PO QAM #90 tabs 09/21/23 torsemide 20 mg tablet 20 mg PO QAM #90 tabs 10/21/23 gabapentin 100 mg capsule 100 mg PO BID #180 caps 12/02/23 amlodipine 5 mg tablet 5 mg PO BID #180 tabs 02/23/24 tirzepatide 5 mg/0.5 mL 5 mg (0.5 mL) subcut WK #2 mL 03/09/24 subcutaneous pen injector (Maria Luz) insulin NPH isoph U-100 human 100 See Rx Instructions subcut UD #30 04/11/24 unit/mL subcutaneous suspension mL (Humulin N NPH U-100 Insulin (isophane susp)) insulin regular human 100 unit/mL See Rx Instructions subcut 04/12/24 injection solution (Humulin R .COMPLEX #30 mL Regular U-100 Insulin) blood-glucose meter,continuous #1 ea 05/03/24 (FreeStyle Fabio 3 [place]) blood-glucose sensor (FreeStyle #2 ea 05/03/24 Fabio 3 Sensor device) irbesartan 300 mg tablet 300 mg PO QAM #90 tabs 06/18/24 Results & Data (ED) Vital Signs Vital Signs - 24 hr 07/04/24 15:35 07/04/24 15:37 07/04/24 18:00 Temperature 36.6 C Temperature Source Oral Pulse Rate 72 68 Pulse Rate [Apical] 73 Respiratory Rate 16 18 Blood Pressure 125/45 L Blood Pressure [Right Arm] 137/59 L Blood Pressure Mean 71 Blood Pressure Mean [Right Arm] 85 Pulse Oximetry 95 89 L Oxygen Delivery Method Room Air Room Air Oxygen Flow Rate Sepsis Recent Fever Within 48 Hours No Sepsis New/Unexplained Change in Mental Status No Sepsis Action Taken by Nursing No Action Required 07/04/24 18:00 07/04/24 19:32 07/04/24 19:35 Temperature Temperature Source Pulse Rate 75 Pulse Rate [Apical] 72 Respiratory Rate 18 Blood Pressure Blood Pressure [Right Arm] 140/73 Blood Pressure Mean Blood Pressure Mean [Right Arm] 95 Pulse Oximetry 95 94 Oxygen Delivery Method Nasal Cannula Oxygen Flow Rate 2 Sepsis Recent Fever Within 48 Hours Sepsis New/Unexplained Change in Mental Status Sepsis Action Taken by Nursing Laboratory Data Attestation: I reviewed the patient's lab results. 07/04/24 16:28 07/04/24 16:28 Lab Results 07/04/24 07/04/24 07/04/24 Range/Units 16:28 16:32 17:51 WBC 28.19 H (4.8-10.8) K/ul RBC 4.44 L (4.70-6.10) M/uL Hgb 13.5 L (14.0-18.0) g/dl POC Hgb 13.9 L (14.0-18.0) g/dl Hct 40.6 L (42.0-52.0) % POC Hct 41 L (42-52) % MCV 91.4 (80.0-100.0) fL MCH 30.4 (25.0-34.0) pg MCHC 33.3 (32.0-36.0) g/dL RDW Std Deviation 41.9 (36.4-46.3) fL RDW Coeff of Jeremy 12.5 (11.5-14.5) % Plt Count 319 (130-400) K/uL MPV 9.5 (9.4-12.4) fL Immature Gran % (Auto) 2.1 % Neut % (Auto) 85.1 % Lymph % (Auto) 4.5 % Mchenry % (Auto) 7.9 % Eos % (Auto) 0.1 % Baso % (Auto) 0.3 % Neut # (Auto) 23.98 H (1.40-6.50) K/uL Lymph # (Auto) 1.27 (1.20-3.40) K/uL Mchenry # (Auto) 2.22 H (0.11-0.59) K/uL Eos # (Auto) 0.03 (0.00-0.50) K/uL Baso # (Auto) 0.09 (0.00-0.20) K/uL Immature Gran # (Auto) 0.60 H (0.01-0.20) K/uL PT 10.3 (9.0-12.0) Seconds INR 0.9 (0.9-1.1) APTT 25 (21-31) Seconds PTT Ratio 0.9 POC Sodium 134 L (135-144) mmol/L Sodium 134 L (136-145) mmol/L POC Potassium 4.6 (3.3-5.0) mmol/L Potassium 4.6 (3.5-5.1) mmol/L POC Chloride 102 (101-112) mmol/L Chloride 101 (98-107) mmol/L Carbon Dioxide 24 (21-32) mmol/L POC Total CO2 23 L (24-31) mmol/L Anion Gap 9 (3-11) POC Anion Gap 15.0 L (16-25) mmol/L POC BUN 31 H (7-18) mg/dl BUN 33 H (6-23) mg/dl Creatinine 1.34 (0.6-1.4) mg/dl POC Creatinine 1.5 H (0.6-1.3) mg/dl Est Cr Clr Drug Dosing 86.1 ml/min eGFR 60.27 BUN/Creatinine Ratio 24.6 H (10-20) Glucose 181 H (70-99(Fasting)) mg/dl POC Glucose (other) 184 H (70-99) mg/dl Calcium 8.5 L (8.6-10.3) mg/dl POC Ioniz Calcium Priscila 1.08 L (1.12-1.32) mmol/l Phosphorus 3.5 (2.5-4.9) mg/dl Magnesium 2.1 (1.7-2.4) mg/dl Total Bilirubin 0.6 (0.2-1.0) mg/dl AST 55 H (13-39) U/L ALT 35 (7-52) U/L Alkaline Phosphatase 108 H (34-104) U/L Total Creatine Kinase 284 H (30-223) U/L Total Protein 6.9 (6.0-8.3) gm/dl Albumin 3.6 (3.4-5.0) gm/dl Globulin 3.3 (2.5-4.0) gm/dl Albumin/Globulin Ratio 1.1 (0.9-2) Lipase 8 L (11-82) U/L Procalcitonin < 0.02 (0-0.5) ng/ml Urine Color Urine Appearance (Clear) Urine pH (4.5-7.5) Ur Specific [place] (1.000-1.030) Urine Protein (Negative) Urine Glucose (UA) (Negative) Urine Ketones (Negative) Urine Blood (Negative) Urine Nitrite (Negative) Urine Bilirubin (Negative) Urine Urobilinogen (Negative) Ur Leukocyte Esterase (Negative) 07/04/24 Range/Units 19:35 WBC (4.8-10.8) K/ul RBC (4.70-6.10) M/uL Hgb (14.0-18.0) g/dl POC Hgb (14.0-18.0) g/dl Hct (42.0-52.0) % POC Hct (42-52) % MCV (80.0-100.0) fL MCH (25.0-34.0) pg MCHC (32.0-36.0) g/dL RDW Std Deviation (36.4-46.3) fL RDW Coeff of Jeremy (11.5-14.5) % Plt Count (130-400) K/uL MPV (9.4-12.4) fL Immature Gran % (Auto) % Neut % (Auto) % Lymph % (Auto) % Mchenry % (Auto) % Eos % (Auto) % Baso % (Auto) % Neut # (Auto) (1.40-6.50) K/uL Lymph # (Auto) (1.20-3.40) K/uL Mchenry # (Auto) (0.11-0.59) K/uL Eos # (Auto) (0.00-0.50) K/uL Baso # (Auto) (0.00-0.20) K/uL Immature Gran # (Auto) (0.01-0.20) K/uL PT (9.0-12.0) Seconds INR (0.9-1.1) APTT (21-31) Seconds PTT Ratio POC Sodium (135-144) mmol/L Sodium (136-145) mmol/L POC Potassium (3.3-5.0) mmol/L Potassium (3.5-5.1) mmol/L POC Chloride (101-112) mmol/L Chloride (98-107) mmol/L Carbon Dioxide (21-32) mmol/L POC Total CO2 (24-31) mmol/L Anion Gap (3-11) POC Anion Gap (16-25) mmol/L POC BUN (7-18) mg/dl BUN (6-23) mg/dl Creatinine (0.6-1.4) mg/dl POC Creatinine (0.6-1.3) mg/dl Est Cr Clr Drug Dosing ml/min eGFR BUN/Creatinine Ratio (10-20) Glucose (70-99(Fasting)) mg/dl POC Glucose (other) (70-99) mg/dl Calcium (8.6-10.3) mg/dl POC Ioniz Calcium Priscila (1.12-1.32) mmol/l Phosphorus (2.5-4.9) mg/dl Magnesium (1.7-2.4) mg/dl Total Bilirubin (0.2-1.0) mg/dl AST (13-39) U/L ALT (7-52) U/L Alkaline Phosphatase (34-104) U/L Total Creatine Kinase (30-223) U/L Total Protein (6.0-8.3) gm/dl Albumin (3.4-5.0) gm/dl Globulin (2.5-4.0) gm/dl Albumin/Globulin Ratio (0.9-2) Lipase (11-82) U/L Procalcitonin (0-0.5) ng/ml Urine Color Yellow Urine Appearance Clear (Clear) Urine pH 5.5 (4.5-7.5) Ur Specific [place] 1.031 H (1.000-1.030) Urine Protein Negative (Negative) Urine Glucose (UA) Negative (Negative) Urine Ketones Negative (Negative) Urine Blood Negative (Negative) Urine Nitrite Negative (Negative) Urine Bilirubin Negative (Negative) Urine Urobilinogen Negative (Negative) Ur Leukocyte Esterase Negative (Negative) Administered Medications Amlodipine Besylate (Amlodipine Besylate 5 Mg Tab) 5 mg PO BID [facility] Stop: 08/03/24 23:40 Last Admin: 07/05/24 00:52 Dose: 5 mg Documented By: MED Gabapentin (Gabapentin 100 Mg Cap) 100 mg PO BID [facility] Stop: 08/03/24 23:40 Last Admin: 07/05/24 00:52 Dose: 100 mg Documented By: MED Piperacillin Sod/Tazobactam Sod (Zosyn) 4.5 gm in 100 mls @ 25 mls/hr IV Q8H [facility]; Protocol Stop: 07/12/24 05:59 Last Admin: 07/05/24 05:43 Dose: 25 mls/hr Documented By: MIGUEL Insulin Aspart (Insulin Aspart Per Unit Charge) 0 units SC ACHS [facility] Stop: 08/04/24 00:29 Last Admin: 07/05/24 02:19 Dose: 9 units Documented By: MIGUEL Co-signed By: TIFFANY Insulin Glargine (Lantus Per Unit Charge) 20 units SQ BID [facility] Stop: 08/03/24 23:40 Last Admin: 07/05/24 02:18 Dose: 20 units Documented By: MIGUEL Co-signed By: TIFFANY Morphine Sulfate (Morphine Sulfate 2 Mg/Ml Carp) 2 mg IV Q3H PRN PRN Reason: Pain (1,2,3,4,5) & Pre PT Stop: 07/18/24 23:40 Last Admin: 07/05/24 00:42 Dose: 2 mg Documented By: CHARLINE Morphine Sulfate (Morphine Sulfate 4 Mg/Ml 1 Ml Carp\\Vial) 4 mg IV Q3H PRN PRN Reason: Pain (6,7,8,9,10) Stop: 07/18/24 23:40 Last Admin: 07/05/24 03:45 Dose: 4 mg Documented By: MIGUEL Discontinued Medications Acetaminophen (Ofirmev) 1,000 mg in 100 mls @ 400 mls/hr IV NOW STA Stop: 07/04/24 16:26 Last Infusion: 07/04/24 16:48 Dose: Infused Documented By: Admin: 07/04/24 16:32 Dose: 400 mls/hr Documented By: SHAHLA Piperacillin Sod/Tazobactam Sod (Zosyn) 4.5 gm in 100 mls @ 200 mls/hr IV NOW ONE; Protocol Stop: 07/04/24 20:49 Last Infusion: 07/05/24 02:06 Dose: Infused Documented By: Admin: 07/04/24 22:23 Dose: 200 mls/hr Documented By: SHAHLA Daptomycin 425 mg/ Syringe 8.5 mls @ 4.25 mls/min IV NOW STA; Protocol Stop: 07/04/24 20:21 Last Admin: 07/04/24 21:28 Dose: 4.25 mls/min Documented By: SHAHLA Calcium Gluconate () 1,000 mg in 60 mls @ 240 mls/hr IV NOW STA Stop: 07/04/24 23:55 Last Infusion: 07/05/24 04:45 Dose: Infused Documented By: Admin: 07/05/24 03:38 Dose: 240 mls/hr Documented By: MIGUEL Ioversol (Optiray 320 125ml) 119 ml IV ONCE ONE Stop: 07/04/24 17:27 Last Admin: 07/04/24 17:26 Dose: 119 ml Documented By: AMISHA Ketorolac Tromethamine (Ketorolac Tromethamine 15 Mg/Ml Vial) 15 mg IV NOW STA Stop: 07/04/24 19:43 Last Admin: 07/04/24 19:55 Dose: 15 mg Documented By: SHAHLA Lidocaine HCl (Lidocaine 1% Local 20 Ml Vial) 20 ml INFIL NOW ONE Stop: 07/04/24 20:25 Last Admin: 07/04/24 21:31 Dose: 20 ml Documented By: NRB Lidocaine/Epinephrine (Lidocaine 1%/Epinephrine 1:100,000 50 Ml Vial) 5 ml INFIL NOW ONE Stop: 07/04/24 20:24 Last Admin: 07/04/24 21:31 Dose: 5 ml Documented By: FAVIOB Morphine Sulfate (Morphine Sulfate 2 Mg/Ml Carp) 2 mg IV NOW STA Stop: 07/04/24 19:43 Last Admin: 07/04/24 19:55 Dose: 2 mg Documented By: NRB Tetanus/Diphtheria Toxoids Adsorbed (Diphtheria/Tetanus Tox Adsorb Vaccine (Td) 0.5 Ml Syr/Vial) 0.5 ml IM .ONCE ONE Stop: 07/04/24 20:18 Last Admin: 07/04/24 21:29 Dose: 0.5 ml Documented By: NRZack Imaging Data Radiologist's Impression: Abdomen/Pelvis CT 07/04/24 16:10 EXAM: CT Abdomen and Pelvis With Intravenous Contrast INDICATION: Trauma TECHNIQUE: Axial computed tomography images of the abdomen and pelvis with intravenous contrast. Sagittal and coronal reformatted images were created and reviewed. This CT exam was performed using one or more of the following dose reduction techniques: automated exposure control, adjustment of the mA and/or kV according to patient size, and/or use of iterative reconstruction technique. CONTRAST: 119ml of Optiray 320 was administered intravenously. COMPARISON: No relevant prior studies available. FINDINGS: Limitations: None. Lung bases: Basilar atelectasis noted. Pleural space: No visualized pleural effusion or pneumothorax. Heart: Mild cardiomegaly. No basilar pericardial effusion. Mediastinum: No abnormality noted. ABDOMEN: Liver: No abnormality noted. Gallbladder and bile ducts: No calcified stones or surrounding fluid. Pancreas: Homogeneous enhancement. No mass, inflammation or ductal dilation. Spleen: No significant abnormality noted. Adrenals: There is a nonspecific 2.3 x 1.5 x 1.9 cm right adrenal nodule. The left appears normal. Kidneys and ureters: Simple bilateral renal cysts noted. No follow-up necessary. No stones or hydronephrosis. There is mild bilateral perinephric scarring. There is an indeterminate hypodensity in the anterior mid to upper right kidney measuring approximately 1 cm. Stomach and bowel: Moderate colonic stool. No obstruction or inflammation. PELVIS: Appendix: Well seen and appears normal. Bladder: No filling defects to suggest mass or large stone. No inflammation. Reproductive: No abnormalities noted. ABDOMEN and PELVIS: Intraperitoneal space: No free air. No significant fluid collection. Bones/joints: Degenerative changes noted throughout the spine. No acute osseous abnormality seen. Soft tissues: Umbilical hernia containing fat. Vasculature: No abdominal aortic aneurysm. Lymph nodes: Shotty reactive inguinal and iliac lymph nodes present. IMPRESSION: 1. No traumatic change identified in the abdomen or pelvis. 2. Indeterminant 1 cm hypodensity in the right kidney presumably a cyst but too ill-defined to characterize. This could be further assessed with nonemergent ultrasound as clinically warranted. 3. Moderate amounts of stool throughout the redundant colon without obstruction. 4. There is a nonspecific 2.3 x 1.5 x 1.9 cm right adrenal mass. ACR White Paper guidelines (Pola et al. JACR 2017; 14(8):5442-9642) suggest a low dose, non-contrast adrenal CT or chemical-shift adrenal MRI follow-up study. ACT 112: Negative or not required by law. Electronically signed by Ashley Villegas 07-04-2024 6:[address] 07/04/24 16:10 EXAM: CT Chest With Intravenous Contrast INDICATION: Trauma. TECHNIQUE: Axial computed tomography images of the chest with intravenous contrast. Sagittal and coronal reformatted images were created and reviewed. This CT exam was performed using one or more of the following dose reduction techniques: automated exposure control, adjustment of the mA and/or kV according to patient size, and/or use of iterative reconstruction technique. CONTRAST: 119ml of Optiray 320 was administered intravenously. COMPARISON: 05/18/2023 FINDINGS: Limitations: None. Lungs and pleural spaces: There is streaky basilar atelectasis. Incidental calcified granuloma in the right upper lobe. No bronchiectasis, honeycombing or reticulation. No pleural effusion or pneumothorax. Heart: No abnormality noted. Thyroid: No abnormality noted. Bones/joints: Degenerative changes present throughout the spine. Sternum, ribs and included portions of the shoulders are intact. Soft tissues: No significant abnormality noted. Vasculature: No abnormality noted. No thoracic aortic aneurysm. Lymph nodes: No enlarged lymph nodes. IMPRESSION: No traumatic change in the thorax. ACT 112: Negative or not required by law. Electronically signed by Ashley Villegas 07-04-2024 6:[address] 07/04/24 16:10 EXAM: CT Maxillofacial With Intravenous Contrast INDICATION: Trauma. TECHNIQUE: Axial computed tomography images of the face without intravenous contrast. Sagittal and coronal reformatted images were created and reviewed. This CT exam was performed using one or more of the following dose reduction techniques: automated exposure control, adjustment of the mA and/or kV according to patient size, and/or use of iterative reconstruction technique. 119 cc Optiray 320 injected intravenously for all exams on this patient. COMPARISON: No relevant prior studies available. FINDINGS: Bones/joints: No fracture. Soft tissues: There is a right frontal scalp laceration and hematoma. There is moderate right periorbital contusion. Orbits: No abnormality noted. Sinuses: No layering fluid in the visualized portions of the paranasal sinuses. Dental: No radiopaque foreign body aside from dental fillings noted. IMPRESSION: There is a right frontal scalp laceration and hematoma. There is moderate right periorbital contusion. No fracture. ACT 112: Negative or not required by law. Electronically signed by Ashley Villegas 07-04-2024 6:[address] 07/04/24 16:10 EXAM: CT Thoracic Spine With Intravenous Contrast INDICATION: Trauma. TECHNIQUE: Axial computed tomography images of the thoracic spine with intravenous contrast. Sagittal and coronal reformatted images were created and reviewed. This CT exam was performed using one or more of the following dose reduction techniques: automated exposure control, adjustment of the mA and/or kV according to patient size, and/or use of iterative reconstruction technique. CONTRAST: 119ml of Optiray 320 was administered intravenously. COMPARISON: No relevant prior studies available. FINDINGS: Limitations: None. Vertebrae: Multilevel bridging ligamentous ossification noted. No acute fracture. No subluxation. Discs/spinal canal/neural foramina: No significant disc space abnormality or stenosis. Soft tissues: No abnormality noted. Heart: No abnormality noted. Mediastinum: No significant abnormality noted. Liver: No significant abnormality noted. Adrenals: Right adrenal mass noted. Kidneys and ureters: 1 cm ill-defined hypodense nodule anterior mid to upper right kidney. Other findings: Diffuse mild to moderate to space narrowing. No stenosis. IMPRESSION: 1. Degenerative changes of the thoracic spine without acute fracture. 2. Right adrenal mass and indeterminate right renal nodule. See separately dictated CT abdomen report for recommendations. ACT 112: Negative or not required by law. Electronically signed by Ashley Villegas 07-04-2024 6:21 PM Wrist X-Ray 07/04/24 19:03 Exam(s): XR LEFT WRIST EXAM: XR Left Wrist Complete, 3 or More Views CLINICAL HISTORY: pain fall. TECHNIQUE: Frontal, lateral and oblique views of the left wrist. COMPARISON: No relevant prior studies available. FINDINGS: Bones/joints: No acute fracture. No dislocation. Soft tissues: Small peggy-like debris overlying the dorsal aspect of the wrist overlying the proximal metadiaphysis of the second through fifth digits. IMPRESSION: No acute fracture or dislocation. Peggy-like debris/foreign bodies overlying the dorsal aspect of the wrist. Electronically signed by: Mayank Vásquez M.D. 07/04/24 21:33 PM Discharge Plan Visit Data Chief Complaint: Fall Stated Complaint: FALL ED Provider: Arnold Trevizo Discharge Problem: Infected stasis ulcer of left lower extremity, Leukocytosis, Fall down stairs, Forehead laceration, Forehead contusion, Chest wall muscle strain Patient Disposition: Admitted As Inpatient Discharge Instructions Interventions: ED Discharge Assessment Last Done: 07/05/24 01:15 Discharge Problem: Leukocytosis Qualifiers: Leukocytosis type: unspecified Qualified Code(s): D72.829 - Elevated white blood cell count, unspecified Fall down stairs Qualifiers: Encounter type: initial encounter Qualified Code(s): W10.8XXA - Fall (on) (from) other stairs and steps, initial encounter Forehead laceration Qualifiers: Encounter type: initial encounter Qualified Code(s): S01.81XA - Laceration without foreign body of other part of head, initial encounter Forehead contusion Qualifiers: Encounter type: initial encounter Qualified Code(s): S00.83XA - Contusion of other part of head, initial encounter Chest wall muscle strain Qualifiers: Encounter type: initial encounter Qualified Code(s): S29.011A - Strain of muscle and tendon of front wall of thorax, initial encounter
[2024-07-04] MEDS: ACETAMINOPHEN 1,000 MG/100 ML VIAL IV STA (16:32)
[2024-07-04 16:45] LABS: iSTAT Creatinine 1.5 mg/dl (0.6-1.3); iSTAT Hemoglobin 13.9 g/dl (14.0-18.0); iSTAT Ionized Calcium 1.08 mmol/l (1.12-1.32); iSTAT Potassium 4.6 mmol/L (3.3-5.0)
[2024-07-04 16:55] LABS: Hematocrit (blood only) 40.6 % (42.0-52.0); Hemoglobin 13.5 g/dl (14.0-18.0); Mean Corpuscular Hemoglobin 30.4 pg (25.0-34.0); Mean Corpuscular Hgb Conc 33.3 g/dL (32.0-36.0); Mean Corpuscular Volume 91.4 fL (80.0-100.0); Mean Platelet Volume 9.5 fL (9.4-12.4); Platelet Count 319 K/uL (130-400); RDW Coefficient of Variation 12.5 % (11.5-14.5); RDW Standard Deviation 41.9 fL (36.4-46.3); Red Blood Count 4.44 M/uL (4.70-6.10); White Blood Count 28.19 K/ul (4.8-10.8)
[2024-07-04 17:12] LABS: Albumin Globulin Ratio 1.1 (0.9-2); Albumin Level 3.6 gm/dl (3.4-5.0); BUN Creatinine Ratio 24.6 (10-20); Bilirubin,Total 0.6 mg/dl (0.2-1.0); Calcium 8.5 mg/dl (8.6-10.3); Creatinine Clr Calc Pharmacy 86.1 ml/min; Globulin 3.3 gm/dl (2.5-4.0); Potassium 4.6 mmol/L (3.5-5.1); Total Protein 6.9 gm/dl (6.0-8.3)
[2024-07-04 17:18] LABS: Basophils # (auto) 0.09 K/uL (0.00-0.20); Basophils % (auto) 0.3 %; Eosinophils # (auto) 0.03 K/uL (0.00-0.50); Eosinophils % (auto) 0.1 %; Immature Granulocytes % (auto) 2.1 %; Lymphocytes # (auto) 1.27 K/uL (1.20-3.40); Lymphocytes % (auto) 4.5 %; Monocytes # (auto) 2.22 K/uL (0.11-0.59); Monocytes % (auto) 7.9 %; Neutrophils # (auto) 23.98 K/uL (1.40-6.50); Neutrophils % (auto) 85.1 %
[2024-07-04] MEDS: OPTIRAY 320 125ml IV ONE (17:26)
[2024-07-04 17:39] LABS: INR 0.9 (0.9-1.1); Partial Thromboplastin Ratio 0.9; Partial Thromboplastin Time 25 Seconds (21-31); Prothrombin Time 10.3 Seconds (9.0-12.0)
--- NOTE | 2024-07-04 17:55 | CT Scan Report ---
EXAM: CT Head Without Intravenous Contrast INDICATION: Trauma TECHNIQUE: Axial computed tomography images of the head/brain without intravenous contrast. Sagittal and/or coronal reformats are provided. Sagittal and coronal reformatted images were created and reviewed. This CT exam was performed using one or more of the following dose reduction techniques: automated exposure control, adjustment of the mA and/or kV according to patient size, and/or use of iterative reconstruction technique. COMPARISON: No relevant prior studies available. FINDINGS: Limitations: None. Brain and extra-axial spaces: No abnormality noted. No hemorrhage. No significant white matter disease. No edema. No ventriculomegaly. Bones/joints: No acute changes. Soft tissues: There is a right frontal scalp laceration and small hematoma. There is right periorbital soft tissue contusion. Vasculature: No acute abnormality noted. Lymph nodes: 12 x 8 mm nodule left parotid gland likely an incidental lymph node. Sinuses: No layering fluid in the visualized portions of the paranasal sinuses. Mastoid air cells: No mastoid effusion. Orbits: No significant abnormality noted. IMPRESSION: There is a right frontal scalp laceration and small hematoma. There is right periorbital soft tissue contusion. No abnormality in the brain. ACT 112: Negative or not required by law. Electronically signed by Ashley Villegas 07-04-2024 5:54 PM
--- NOTE | 2024-07-04 17:57 | CT Scan Report ---
EXAM: CT Cervical Spine Without Intravenous Contrast INDICATION: Fall. TECHNIQUE: Axial computed tomography images of the cervical spine without intravenous contrast. Sagittal and coronal reformatted images were created and reviewed. This CT exam was performed using one or more of the following dose reduction techniques: automated exposure control, adjustment of the mA and/or kV according to patient size, and/or use of iterative reconstruction technique. COMPARISON: 05/18/2023 FINDINGS: Limitations: Artifact from the shoulders limits assessment from C6 to the proximal thorax. Vertebrae: Stable facet arthrosis. Spondylosis and uncal spurring noted C4-C7 most notable at C6-C7. No fracture or subluxation. Discs/spinal canal/neural foramina: Moderate to space narrowing C6-C7. Bilateral foraminal encroachment noted at this level. There is mild ventral canal stenosis. There is mild central disc bulge at multiple levels with generalized mild ventral thecal sac flattening. There is right foraminal stenosis at C5-C6. Soft tissues: No significant abnormality noted. Lung apices: No significant abnormality noted. IMPRESSION: Limited as above. No fracture. Degenerative changes noted. ACT 112: Negative or not required by law. Electronically signed by Ashley Villegas 07-04-2024 5:56 PM
--- NOTE | 2024-07-04 18:09 | CT Scan Report ---
EXAM: CT Lumbar Spine With Intravenous Contrast INDICATION: Trauma. TECHNIQUE: Axial computed tomography images of the lumbar spine with intravenous contrast. Sagittal and coronal reformatted images were created and reviewed. This CT exam was performed using one or more of the following dose reduction techniques: automated exposure control, adjustment of the mA and/or kV according to patient size, and/or use of iterative reconstruction technique. CONTRAST: 119ml of Optiray 320 was administered intravenously. COMPARISON: 05/18/2023 FINDINGS: Limitations: None. Vertebrae: Stable multilevel mild facet arthrosis and moderate spondylosis. No fracture or subluxation. Sacrum/coccyx: No significant abnormality noted. No acute change noted. Discs/spinal canal/neural foramina: There is stable vacuum degenerative disc phenomenon L4-L5 and mild generalized narrowing. There is moderate generalized disc bulge with canal stenosis at L3-L4. Slightly less severe disease noted at L4-L5. There is right foraminal encroachment L4-L5 and bilateral L4-L5 L5-S1 stenosis. Soft tissues: No significant abnormality noted. IMPRESSION: Degenerative changes. No acute abnormality. ACT 112: Negative or not required by law. Electronically signed by Ashley Villegas 07-04-2024 6:09 PM
--- NOTE | 2024-07-04 18:14 | CT Scan Report ---
EXAM: CT Abdomen and Pelvis With Intravenous Contrast INDICATION: Trauma TECHNIQUE: Axial computed tomography images of the abdomen and pelvis with intravenous contrast. Sagittal and coronal reformatted images were created and reviewed. This CT exam was performed using one or more of the following dose reduction techniques: automated exposure control, adjustment of the mA and/or kV according to patient size, and/or use of iterative reconstruction technique. CONTRAST: 119ml of Optiray 320 was administered intravenously. COMPARISON: No relevant prior studies available. FINDINGS: Limitations: None. Lung bases: Basilar atelectasis noted. Pleural space: No visualized pleural effusion or pneumothorax. Heart: Mild cardiomegaly. No basilar pericardial effusion. Mediastinum: No abnormality noted. ABDOMEN: Liver: No abnormality noted. Gallbladder and bile ducts: No calcified stones or surrounding fluid. Pancreas: Homogeneous enhancement. No mass, inflammation or ductal dilation. Spleen: No significant abnormality noted. Adrenals: There is a nonspecific 2.3 x 1.5 x 1.9 cm right adrenal nodule. The left appears normal. Kidneys and ureters: Simple bilateral renal cysts noted. No follow-up necessary. No stones or hydronephrosis. There is mild bilateral perinephric scarring. There is an indeterminate hypodensity in the anterior mid to upper right kidney measuring approximately 1 cm. Stomach and bowel: Moderate colonic stool. No obstruction or inflammation. PELVIS: Appendix: Well seen and appears normal. Bladder: No filling defects to suggest mass or large stone. No inflammation. Reproductive: No abnormalities noted. ABDOMEN and PELVIS: Intraperitoneal space: No free air. No significant fluid collection. Bones/joints: Degenerative changes noted throughout the spine. No acute osseous abnormality seen. Soft tissues: Umbilical hernia containing fat. Vasculature: No abdominal aortic aneurysm. Lymph nodes: Shotty reactive inguinal and iliac lymph nodes present. IMPRESSION: 1. No traumatic change identified in the abdomen or pelvis. 2. Indeterminant 1 cm hypodensity in the right kidney presumably a cyst but too ill-defined to characterize. This could be further assessed with nonemergent ultrasound as clinically warranted. 3. Moderate amounts of stool throughout the redundant colon without obstruction. 4. There is a nonspecific 2.3 x 1.5 x 1.9 cm right adrenal mass. ACR White Paper guidelines (Pola et al. JACR 2017; 14(8):7912-5290) suggest a low dose, non-contrast adrenal CT or chemical-shift adrenal MRI follow-up study. ACT 112: Negative or not required by law. Electronically signed by Ashley Villegas 07-04-2024 6:13 PM
--- NOTE | 2024-07-04 18:16 | CT Scan Report ---
EXAM: CT Chest With Intravenous Contrast INDICATION: Trauma. TECHNIQUE: Axial computed tomography images of the chest with intravenous contrast. Sagittal and coronal reformatted images were created and reviewed. This CT exam was performed using one or more of the following dose reduction techniques: automated exposure control, adjustment of the mA and/or kV according to patient size, and/or use of iterative reconstruction technique. CONTRAST: 119ml of Optiray 320 was administered intravenously. COMPARISON: 05/18/2023 FINDINGS: Limitations: None. Lungs and pleural spaces: There is streaky basilar atelectasis. Incidental calcified granuloma in the right upper lobe. No bronchiectasis, honeycombing or reticulation. No pleural effusion or pneumothorax. Heart: No abnormality noted. Thyroid: No abnormality noted. Bones/joints: Degenerative changes present throughout the spine. Sternum, ribs and included portions of the shoulders are intact. Soft tissues: No significant abnormality noted. Vasculature: No abnormality noted. No thoracic aortic aneurysm. Lymph nodes: No enlarged lymph nodes. IMPRESSION: No traumatic change in the thorax. ACT 112: Negative or not required by law. Electronically signed by Ashley Villegas 07-04-2024 6:15 PM
--- NOTE | 2024-07-04 18:19 | CT Scan Report ---
EXAM: CT Maxillofacial With Intravenous Contrast INDICATION: Trauma. TECHNIQUE: Axial computed tomography images of the face without intravenous contrast. Sagittal and coronal reformatted images were created and reviewed. This CT exam was performed using one or more of the following dose reduction techniques: automated exposure control, adjustment of the mA and/or kV according to patient size, and/or use of iterative reconstruction technique. 119 cc Optiray 320 injected intravenously for all exams on this patient. COMPARISON: No relevant prior studies available. FINDINGS: Bones/joints: No fracture. Soft tissues: There is a right frontal scalp laceration and hematoma. There is moderate right periorbital contusion. Orbits: No abnormality noted. Sinuses: No layering fluid in the visualized portions of the paranasal sinuses. Dental: No radiopaque foreign body aside from dental fillings noted. IMPRESSION: There is a right frontal scalp laceration and hematoma. There is moderate right periorbital contusion. No fracture. ACT 112: Negative or not required by law. Electronically signed by Ashley Villegas 07-04-2024 6:18 PM
--- NOTE | 2024-07-04 18:21 | CT Scan Report ---
EXAM: CT Thoracic Spine With Intravenous Contrast INDICATION: Trauma. TECHNIQUE: Axial computed tomography images of the thoracic spine with intravenous contrast. Sagittal and coronal reformatted images were created and reviewed. This CT exam was performed using one or more of the following dose reduction techniques: automated exposure control, adjustment of the mA and/or kV according to patient size, and/or use of iterative reconstruction technique. CONTRAST: 119ml of Optiray 320 was administered intravenously. COMPARISON: No relevant prior studies available. FINDINGS: Limitations: None. Vertebrae: Multilevel bridging ligamentous ossification noted. No acute fracture. No subluxation. Discs/spinal canal/neural foramina: No significant disc space abnormality or stenosis. Soft tissues: No abnormality noted. Heart: No abnormality noted. Mediastinum: No significant abnormality noted. Liver: No significant abnormality noted. Adrenals: Right adrenal mass noted. Kidneys and ureters: 1 cm ill-defined hypodense nodule anterior mid to upper right kidney. Other findings: Diffuse mild to moderate to space narrowing. No stenosis. IMPRESSION: 1. Degenerative changes of the thoracic spine without acute fracture. 2. Right adrenal mass and indeterminate right renal nodule. See separately dictated CT abdomen report for recommendations. ACT 112: Negative or not required by law. Electronically signed by Ashley Villegas 07-04-2024 6:21 PM
[2024-07-04 19:49] LABS: Appearance Urine Clear (Clear); Bilirubin Urine Negative (Negative); Blood Urine Negative (Negative); Color Urine Yellow; Glucose Urine UA Negative (Negative); Ketones Urine Negative (Negative); Leukocyte Esterase Urine Negative (Negative); Nitrite Urine Negative (Negative); Protein Urine Negative (Negative); Specific Gravity Urine 1.031 (1.000-1.030); Urobilinogen Urine Negative (Negative); pH Urine 5.5 (4.5-7.5)
[2024-07-04] MEDS: KETOROLAC TROMETHAMINE 15 MG/ML VIAL IV STA (19:55)
[2024-07-04] MEDS: MoRPHine SULFATE 2 MG/ML CARP IV STA (19:55)
--- NOTE | 2024-07-04 21:11 | History & Physical Report ---
Date of Service July 04, 2024 Assessment & Plan (1) Fall: Plan: 63yo male with recent fall down the stairs. Patient denies chest pain, palpitations, dizziness or LOC. He is not on anti-platelets or anticoagulation. He reports he lives alone, is independent and ambulatory without issue. Trauma scans are unremarkable for acute fracture or internal injury -Admit to Medical with Telemetry -Wound care -Repeat CK in AM (if continues to be elevated would DC Daptomycin) -Tylenol PRN pain -Morphine PRN pain -Colace/Miralax PRN bowel regimen (2) Venous stasis ulcers: Plan: Noted. Some foul smelling drainage noted. Patient cares for his wounds at home. He does have marked leukocytosis with WBC=28.19, neutrophil predominance and bands present - question if this is reactive from his recent fall/trauma vs infectious source. He does not appear to be septic at this time. -Follow cultures sent from ER -Empiric coverage for now with Daptomycin and Zosyn -Wound Care (3) Elevated creatine kinase: Plan: Elevated MP=797 at present -Encourage fluid intake. Patient reports that his legs become swollen very quickly with IVF -Repeat CK in AM -May need to DC Daptomycin pending repeat labs (4) Hypertension: Plan: Blood pressure at goal -Continue home Metoprolol, Amlodipine, Spironolactone and Irbesartan -Pain control as above -Continue to monitor (5) Hyperlipidemia: Plan: Chronic -Continue Ezetimibe (6) Uncontrolled diabetes mellitus with retinopathy: Plan: Noted -Lantus 20u BID -ISS -Continue Gabapentin -Goal blood sugar 110 - 140 Plan JOSHUA - chronic. stable. Patient is compliant with home BiPAP -BiPAP qHS F/E/N - saline lock. Calcium gluconate x 1gm given, repeat chemistry in AM, CC diet as tolerated Ppx - encourage ambulation Code - Full Dispo - Observation to medical with telemetry History of Present Illness Chief Complaint: fall, trauma Primary Care Provider: PATRICIA Torres Terrance Walker is a 63yo male with history of ITP, JOSHUA on home BiPAP qHS, HTN, HLP and DM presenting fallowing a fall down his cellar stairs. Patient has been in his usual state of health until this afternoon around 15:00 when he was walking down his cellar stairs. He was reaching out to grasp something and lost his balance and fell face first onto his stairs. He reports breaking the fall with his hands but then sliding down 5-6 concrete stairs injuring his face and hands. He did not directly strike his head. No LOC. Presently complaining of diffuse pain involving his anterior chest wall, back, hands, arms and face. Patient additionally with chronic venous stasis ulcers of his bilateral LE. He has been caring for them at home wtih saline irrigation and dressing them with gauze. He has noted some foul smelling drainage. Denies fever, chills, cough, SOB, abdominal pain, nausea, vomiting, diarrhea. No additional complaints at this time ER Course: Tylenol Toradol Morphine Daptomycin TDap vaccine Lidocaine Zosyn s/p repair of right supraorbital facial laceration - 6-0 nylon sutures x 2 Allergies Allergy/AdvReac Type Severity Reaction Status Date / Time nirmatrelvir [From Paxlovid] Allergy Intermediate Rash Verified 05/23/24 14:58 ritonavir [From Paxlovid] Allergy Intermediate Rash Verified 05/23/24 14:58 bacitracin AdvReac Unknown GI UPSET Verified 05/23/24 14:58 neomycin AdvReac Unknown GI UPSET Verified 05/23/24 14:58 polymyxin B AdvReac Unknown Gastrointestinal Verified 05/23/24 14:58 Upset rosuvastatin AdvReac Unknown Joint Pain Verified 05/23/24 14:58 sulfamethoxazole AdvReac Unknown pt reports Verified 05/23/24 14:58 doesn't know about this one trimethoprim AdvReac Unknown pt doesn't Verified 05/23/24 14:58 know about this one Home Medications Medication Instructions Recorded Confirmed Type CPAP Machine #1 ea 09/24/19 05/23/24 Rx insulin syringe-needle U-100 1 mL #180 ea 01/24/23 05/23/24 Rx 30 gauge x 1/2" (BD Insulin Syringe Ultra-Fine) pen needle, diabetic 32 gauge x #100 ea 01/24/23 05/23/24 Rx 5/32" (Easy Comfort Pen [place]) metformin 500 mg tablet,extended 500 mg PO BID 90 days #180 tabs 07/21/23 07/04/24 Rx release 24 hr spironolactone 25 mg tablet 25 mg PO QAM #90 tabs 09/21/23 07/04/24 Rx torsemide 20 mg tablet 20 mg PO QAM #90 tabs 10/21/23 07/04/24 Rx gabapentin 100 mg capsule 100 mg PO BID #180 caps 12/02/23 07/04/24 Rx ezetimibe 10 mg tablet 10 mg PO Q OTHER DAY 01/26/24 07/04/24 History amlodipine 5 mg tablet 5 mg PO BID #180 tabs 02/23/24 07/04/24 Rx tirzepatide 5 mg/0.5 mL 5 mg (0.5 mL) subcut WK #2 mL 03/09/24 07/04/24 Rx subcutaneous pen injector (Mounjaro) insulin NPH isoph U-100 human 100 See Rx Instructions subcut UD #30 04/11/24 07/04/24 Rx unit/mL subcutaneous suspension mL (Humulin N NPH U-100 Insulin (isophane susp)) insulin regular human 100 unit/mL See Rx Instructions subcut 04/12/24 07/04/24 Rx injection solution (Humulin R .COMPLEX #30 mL Regular U-100 Insulin) metoprolol succinate 25 mg 25 mg PO QAM 04/13/24 07/04/24 History tablet,extended release 24 hr (Toprol XL) blood-glucose meter,continuous #1 ea 05/03/24 05/23/24 Rx (FreeStyle Fabio 3 [place]) blood-glucose sensor (FreeStyle #2 ea 05/03/24 05/23/24 Rx Fabio 3 Sensor device) irbesartan 300 mg tablet 300 mg PO QAM #90 tabs 06/18/24 07/04/24 Rx Past Med/Surg History Problem List (Updated 07/04/24 @ 23:54 by Marsha Morfin DO) Elevated creatine kinase Fall Morbid obesity Right bundle branch block Ectopic atrial tachycardia Dysrhythmia (Acute) Leukocytosis (Acute) Dizziness (Acute) Lightheadedness Arrhythmia Osteoarthritis of knees, bilateral Vertebral osteophyte Degeneration of thoracic intervertebral disc Leukocytosis Foot pain Arthritis of foot Chronic ITP (idiopathic thrombocytopenia) Nocturnal hypoxemia (Chronic) Hypertension Uncontrolled diabetes mellitus with retinopathy (Chronic) Osteomyelitis of forefoot (Chronic) on abx therapy, following Dr. Martinez ([facility]) Hyperlipidemia (Chronic) BMI 50.0-59.9, adult (Chronic) Venous stasis ulcers of both lower extremities (Acute) Diabetic foot ulcer associated with type 2 diabetes mellitus (Chronic) Arthritis (Chronic) Medical History History of ITP thinks in 2020 > [place] Hx of atrial tachycardia controlled now since ablation > follows with Dr. Ashkan Benítez in [place] History of COVID-2022 History of anesthesia reaction with toe surgery, woke up during gave me more to go back to sleep. with prior colonoscopy, woke up during gave me more to go back to sleep. History of colon polyps Hyperlipidemia Diabetic leg ulcer left leg- patient cares for them himself at this time, denies an infection. currently is still there (09/15/23) Morbid obesity with BMI of 50.0-59.9, adult Thrombocytopenia hx JOSHUA (obstructive sleep apnea) cpap Peripheral neuropathy Osteoarthritis Chronic back pain Edema legs always. Anemia hx Hypertension Chronic venous insufficiency Diabetes Type 2 - IDDM Surgical History History of cardiac cath no stents > Feb 2024 History of cardiac radiofrequency ablation Feb 2024 at [facility] Hx of colonoscopy S/P lymph node biopsy needle aspiration/pt is not sure about this. 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 S/P foot surgery, right Family History Father Acute myocardial infarction Alcohol abuse Tobacco use Diabetes Myocardial infarction Mother Brain cancer Social History Smoking Status: Never smoker Second Hand Exposure: No; Do You Dip or Chew Tobacco: No; Hx Alcohol Use: No Hx Substance Use: No Preferred Language: Sri Lankan Communication Ability: Effective Visual Impairment: No Limitations Hearing Ability: Normal Cook Helper Fruit Required: No Beliefs That Will Affect Care: None marital status: single Current Living Situation: Alone current occupational status: unemployed and disabled How many Children do You have: 0 Feels Safe at Home: Yes Diet: regular Diet Comment: regular caffeine: Yes during the past year weight has: decreased > 10 lbs Dental Care, Regularly: No Physical Activity Frequency: 1-2 Times per Week Physical Activity Frequency Comment: walks in the summertime Seatbelt Use: never Sunscreen Use: No Assistive Devices: CPAP and Glasses Review of Systems Review of Systems: All systems reviewed & are unremarkable except as noted in HPI & below Physical Exam Physical Exam: General: patient in NAD, resting upright in bed Skin: facial contusions, significant swelling of right eye, laceration on right supraorbital region and bridge of nose, skin tearing noted on bilateral hands HEENT: Right eye swollen, EOMI, anicteric sclera, conjunctiva without injection, external ear normal to inspection and nontender, TM with no evidence of hemotympanum nares patent, no septal hematoma on nasal exam, moist mucus membranes, dentition intact, no oropharyngeal lesions, neck supple, trachea midline, no LAD, no thyromegaly, no JVD Heart: +S1/S2, regular, 3/6 ERLINDA across precordium Lungs: equal air entry bilaterally, no rales/rhonchi/wheezes Abd: +BS, soft, NT/ND, no masses/organomegaly/ascites Ext: chronic venous stasis changes with skin thickening, multiple shallow based ulcerations with some serous drainage, some foul smelling discharge as well Neuro: nonfocal, patient AA&O x 4, speech intact, no facial droop, moving all extremities on command with equal strength 5/5 Results & Data Results & Data Vital Signs (Past 12 Hours) Vital Signs Temp Pulse Pulse Resp BP BP Pulse Ox 07/04/24 19:35 75 07/04/24 19:32 72 18 140/73 94 07/04/24 18:00 95 07/04/24 18:00 73 18 137/59 L 89 L 07/04/24 15:37 68 07/04/24 15:35 36.6 C 72 16 125/45 L 95 O2 Del Method O2 Flow Rate 07/04/24 19:35 07/04/24 19:32 07/04/24 18:00 Nasal Cannula 2 07/04/24 18:00 Room Air 07/04/24 15:37 07/04/24 15:35 Room Air Laboratory Results Laboratory Results WBC 28.19 K/ul (4.8-10.8) H 07/04/24 16:28 RBC 4.44 M/uL (4.70-6.10) L 07/04/24 16:28 Hgb 13.5 g/dl (14.0-18.0) L 07/04/24 16: POC Hgb 13.9 g/dl (14.0-18.0) L 07/04/24 16: Hct 40.6 % (42.0-52.0) L 07/04/24 16: POC Hct 41 % (42-52) L 07/04/24 16: MCV 91.4 fL (80.0-100.0) 07/04/24 16: MCH 30.4 pg (25.0-34.0) 07/04/24 16: MCHC 33.3 g/dL (32.0-36.0) 07/04/24: RDW Std Deviation 41.9 fL (36.4-46.3) 07/04/24: RDW Coeff of Jeremy 12.5 % (11.5-14.5) 07/04/24 16: Plt Count 319 K/uL (130-400) 07/04/24: MPV 9.5 fL (9.4-12.4) 07/04/24 16: Immature Gran % (Auto) 2.1 % 07/04/24 16: Neut % (Auto) 85.1 % 07/04/24 16: Lymph % (Auto) 4.5 % 07/04/24 16: [place] % (Auto) 7.9 % 07/04/24: Eos % (Auto) 0.1 % 07/04/24: Baso % (Auto) 0.3 % 07/04/24: Neut # (Auto) 23.98 K/uL (1.40-6.50) H 07/04/24 16: Lymph # (Auto) 1.27 K/uL (1.20-3.40) 07/04/24 16: [place] # (Auto) 2.22 K/uL (0.11-0.59) H 07/04/24 16: Eos # (Auto) 0.03 K/uL (0.00-0.50) 07/04/24 16: Baso # (Auto) 0.09 K/uL (0.00-0.20) 07/04/24 16:28 Immature Gran # (Auto) 0.60 K/uL (0.01-0.20) H 07/04/24 16:28 PT 10.3 Seconds (9.0-12.0) 07/04/24 16:28 INR 0.9 (0.9-1.1) 07/04/24 16:28 APTT 25 Seconds (21-31) 07/04/24 16:28 PTT Ratio 0.9 07/04/24 16:28 POC Sodium 134 mmol/L (135-144) L 07/04/24 16:32 Sodium 134 mmol/L (136-145) L 07/04/24 16:28 POC Potassium 4.6 mmol/L (3.3-5.0) 07/04/24 16:32 Potassium 4.6 mmol/L (3.5-5.1) 07/04/24 16:28 POC Chloride 102 mmol/L (101-112) 07/04/24 16:32 Chloride 101 mmol/L (98-107) 07/04/24 16:28 Carbon Dioxide 24 mmol/L (21-32) 07/04/24 16:28 POC Total CO2 23 mmol/L (24-31) L 07/04/24 16:32 Anion Gap 9 (3-11) 07/04/24 16:28 POC Anion Gap 15.0 mmol/L (16-25) L 07/04/24 16:32 POC BUN 31 mg/dl (7-18) H 07/04/24 16:32 BUN 33 mg/dl (6-23) H 07/04/24 16:28 Creatinine 1.34 mg/dl (0.6-1.4) 07/04/24 16:28 POC Creatinine 1.5 mg/dl (0.6-1.3) H 07/04/24 16:32 Est Cr Clr Drug Dosing 86.1 ml/min 07/04/24 16:28 eGFR 60.27 07/04/24 16:28 BUN/Creatinine Ratio 24.6 (10-20) H 07/04/24 16:28 Glucose 181 mg/dl (70-99(Fasting)) H 07/04/24 16:28 POC Glucose (other) 184 mg/dl (70-99) H 07/04/24 16:32 Lactate 1.6 mmol/L (0.4-2.0) 07/04/24 21:27 Calcium 8.5 mg/dl (8.6-10.3) L 07/04/24 16:28 POC Ioniz Calcium Priscila 1.08 mmol/l (1.12-1.32) L 07/04/24 16:32 Total Bilirubin 0.6 mg/dl (0.2-1.0) 07/04/24 16:28 AST 55 U/L (13-39) H 07/04/24 16:28 ALT 35 U/L (7-52) 07/04/24 16:28 Alkaline Phosphatase 108 U/L (34-104) H 07/04/24 16:28 Total Creatine Kinase 284 U/L (30-223) H 07/04/24 16:28 Total Protein 6.9 gm/dl (6.0-8.3) 07/04/24 16:28 Albumin 3.6 gm/dl (3.4-5.0) 07/04/24 16:28 Globulin 3.3 gm/dl (2.5-4.0) 07/04/24 16:28 Albumin/Globulin Ratio 1.1 (0.9-2) 07/04/24 16:28 Lipase 8 U/L (11-82) L 07/04/24 16:28 Procalcitonin < 0.02 ng/ml (0-0.5) 07/04/24 17:51 Urine Color Yellow 07/04/24 19:35 Urine Appearance Clear (Clear) 07/04/24 19:35 Urine pH 5.5 (4.5-7.5) 07/04/24 19:35 Ur Specific [place] 1.031 (1.000-1.030) H 07/04/24 19:35 Urine Protein Negative (Negative) 07/04/24 19:35 Urine Glucose (UA) Negative (Negative) 07/04/24 19:35 Urine Ketones Negative (Negative) 07/04/24 19:35 Urine Blood Negative (Negative) 07/04/24 19:35 Urine Nitrite Negative (Negative) 07/04/24 19:35 Urine Bilirubin Negative (Negative) 07/04/24 19:35 Urine Urobilinogen Negative (Negative) 07/04/24 19:35 Ur Leukocyte Esterase Negative (Negative) 07/04/24 19:35 Impressions Abdomen/Pelvis CT 07/04/24 16:10 EXAM: CT Abdomen and Pelvis With Intravenous Contrast INDICATION: Trauma TECHNIQUE: Axial computed tomography images of the abdomen and pelvis with intravenous contrast. Sagittal and coronal reformatted images were created and reviewed. This CT exam was performed using one or more of the following dose reduction techniques: automated exposure control, adjustment of the mA and/or kV according to patient size, and/or use of iterative reconstruction technique. CONTRAST: 119ml of Optiray 320 was administered intravenously. COMPARISON: No relevant prior studies available. FINDINGS: Limitations: None. Lung bases: Basilar atelectasis noted. Pleural space: No visualized pleural effusion or pneumothorax. Heart: Mild cardiomegaly. No basilar pericardial effusion. Mediastinum: No abnormality noted. ABDOMEN: Liver: No abnormality noted. Gallbladder and bile ducts: No calcified stones or surrounding fluid. Pancreas: Homogeneous enhancement. No mass, inflammation or ductal dilation. Spleen: No significant abnormality noted. Adrenals: There is a nonspecific 2.3 x 1.5 x 1.9 cm right adrenal nodule. The left appears normal. Kidneys and ureters: Simple bilateral renal cysts noted. No follow-up necessary. No stones or hydronephrosis. There is mild bilateral perinephric scarring. There is an indeterminate hypodensity in the anterior mid to upper right kidney measuring approximately 1 cm. Stomach and bowel: Moderate colonic stool. No obstruction or inflammation. PELVIS: Appendix: Well seen and appears normal. Bladder: No filling defects to suggest mass or large stone. No inflammation. Reproductive: No abnormalities noted. ABDOMEN and PELVIS: Intraperitoneal space: No free air. No significant fluid collection. Bones/joints: Degenerative changes noted throughout the spine. No acute osseous abnormality seen. Soft tissues: Umbilical hernia containing fat. Vasculature: No abdominal aortic aneurysm. Lymph nodes: Shotty reactive inguinal and iliac lymph nodes present. IMPRESSION: 1. No traumatic change identified in the abdomen or pelvis. 2. Indeterminant 1 cm hypodensity in the right kidney presumably a cyst but too ill-defined to characterize. This could be further assessed with nonemergent ultrasound as clinically warranted. 3. Moderate amounts of stool throughout the redundant colon without obstruction. 4. There is a nonspecific 2.3 x 1.5 x 1.9 cm right adrenal mass. ACR White Paper guidelines (Pola et al. JACR 2017; 14(8):5186-6768) suggest a low dose, non-contrast adrenal CT or chemical-shift adrenal MRI follow-up study. ACT 112: Negative or not required by law. Electronically signed by Ashley Villegas 07-04-2024 6:[address] 07/04/24 16:10 EXAM: CT Chest With Intravenous Contrast INDICATION: Trauma. TECHNIQUE: Axial computed tomography images of the chest with intravenous contrast. Sagittal and coronal reformatted images were created and reviewed. This CT exam was performed using one or more of the following dose reduction techniques: automated exposure control, adjustment of the mA and/or kV according to patient size, and/or use of iterative reconstruction technique. CONTRAST: 119ml of Optiray 320 was administered intravenously. COMPARISON: 05/18/2023 FINDINGS: Limitations: None. Lungs and pleural spaces: There is streaky basilar atelectasis. Incidental calcified granuloma in the right upper lobe. No bronchiectasis, honeycombing or reticulation. No pleural effusion or pneumothorax. Heart: No abnormality noted. Thyroid: No abnormality noted. Bones/joints: Degenerative changes present throughout the spine. Sternum, ribs and included portions of the shoulders are intact. Soft tissues: No significant abnormality noted. Vasculature: No abnormality noted. No thoracic aortic aneurysm. Lymph nodes: No enlarged lymph nodes. IMPRESSION: No traumatic change in the thorax. ACT 112: Negative or not required by law. Electronically signed by Ashley Villegas 07-04-2024 6:[address] 07/04/24 16:10 EXAM: CT Maxillofacial With Intravenous Contrast INDICATION: Trauma. TECHNIQUE: Axial computed tomography images of the face without intravenous contrast. Sagittal and coronal reformatted images were created and reviewed. This CT exam was performed using one or more of the following dose reduction techniques: automated exposure control, adjustment of the mA and/or kV according to patient size, and/or use of iterative reconstruction technique. 119 cc Optiray 320 injected intravenously for all exams on this patient. COMPARISON: No relevant prior studies available. FINDINGS: Bones/joints: No fracture. Soft tissues: There is a right frontal scalp laceration and hematoma. There is moderate right periorbital contusion. Orbits: No abnormality noted. Sinuses: No layering fluid in the visualized portions of the paranasal sinuses. Dental: No radiopaque foreign body aside from dental fillings noted. IMPRESSION: There is a right frontal scalp laceration and hematoma. There is moderate right periorbital contusion. No fracture. ACT 112: Negative or not required by law. Electronically signed by Ashley Villegas 07-04-2024 6:[address] 07/04/24 16:10 EXAM: CT Head Without Intravenous Contrast INDICATION: Trauma TECHNIQUE: Axial computed tomography images of the head/brain without intravenous contrast. Sagittal and/or coronal reformats are provided. Sagittal and coronal reformatted images were created and reviewed. This CT exam was performed using one or more of the following dose reduction techniques: automated exposure control, adjustment of the mA and/or kV according to patient size, and/or use of iterative reconstruction technique. COMPARISON: No relevant prior studies available. FINDINGS: Limitations: None. Brain and extra-axial spaces: No abnormality noted. No hemorrhage. No significant white matter disease. No edema. No ventriculomegaly. Bones/joints: No acute changes. Soft tissues: There is a right frontal scalp laceration and small hematoma. There is right periorbital soft tissue contusion. Vasculature: No acute abnormality noted. Lymph nodes: 12 x 8 mm nodule left parotid gland likely an incidental lymph node. Sinuses: No layering fluid in the visualized portions of the paranasal sinuses. Mastoid air cells: No mastoid effusion. Orbits: No significant abnormality noted. IMPRESSION: There is a right frontal scalp laceration and small hematoma. There is right periorbital soft tissue contusion. No abnormality in the brain. ACT 112: Negative or not required by law. Electronically signed by Ashley Villegas 07-04-2024 5:[address] 07/04/24 16:10 EXAM: CT Lumbar Spine With Intravenous Contrast INDICATION: Trauma. TECHNIQUE: Axial computed tomography images of the lumbar spine with intravenous contrast. Sagittal and coronal reformatted images were created and reviewed. This CT exam was performed using one or more of the following dose reduction techniques: automated exposure control, adjustment of the mA and/or kV according to patient size, and/or use of iterative reconstruction technique. CONTRAST: 119ml of Optiray 320 was administered intravenously. COMPARISON: 05/18/2023 FINDINGS: Limitations: None. Vertebrae: Stable multilevel mild facet arthrosis and moderate spondylosis. No fracture or subluxation. Sacrum/coccyx: No significant abnormality noted. No acute change noted. Discs/spinal canal/neural foramina: There is stable vacuum degenerative disc phenomenon L4-L5 and mild generalized narrowing. There is moderate generalized disc bulge with canal stenosis at L3-L4. Slightly less severe disease noted at L4-L5. There is right foraminal encroachment L4-L5 and bilateral L4-L5 L5-S1 stenosis. Soft tissues: No significant abnormality noted. IMPRESSION: Degenerative changes. No acute abnormality. ACT 112: Negative or not required by law. Electronically signed by Ashley Villegas 07-04-2024 6:[address] 07/04/24 16:10 EXAM: CT Thoracic Spine With Intravenous Contrast INDICATION: Trauma. TECHNIQUE: Axial computed tomography images of the thoracic spine with intravenous contrast. Sagittal and coronal reformatted images were created and reviewed. This CT exam was performed using one or more of the following dose reduction techniques: automated exposure control, adjustment of the mA and/or kV according to patient size, and/or use of iterative reconstruction technique. CONTRAST: 119ml of Optiray 320 was administered intravenously. COMPARISON: No relevant prior studies available. FINDINGS: Limitations: None. Vertebrae: Multilevel bridging ligamentous ossification noted. No acute fracture. No subluxation. Discs/spinal canal/neural foramina: No significant disc space abnormality or stenosis. Soft tissues: No abnormality noted. Heart: No abnormality noted. Mediastinum: No significant abnormality noted. Liver: No significant abnormality noted. Adrenals: Right adrenal mass noted. Kidneys and ureters: 1 cm ill-defined hypodense nodule anterior mid to upper right kidney. Other findings: Diffuse mild to moderate to space narrowing. No stenosis. IMPRESSION: 1. Degenerative changes of the thoracic spine without acute fracture. 2. Right adrenal mass and indeterminate right renal nodule. See separately dictated CT abdomen report for recommendations. ACT 112: Negative or not required by law. Electronically signed by Ashley Villegas 07-04-2024 6:[address] 07/04/24 16:11 EXAM: CT Cervical Spine Without Intravenous Contrast INDICATION: Fall. TECHNIQUE: Axial computed tomography images of the cervical spine without intravenous contrast. Sagittal and coronal reformatted images were created and reviewed. This CT exam was performed using one or more of the following dose reduction techniques: automated exposure control, adjustment of the mA and/or kV according to patient size, and/or use of iterative reconstruction technique. COMPARISON: 05/18/2023 FINDINGS: Limitations: Artifact from the shoulders limits assessment from C6 to the proximal thorax. Vertebrae: Stable facet arthrosis. Spondylosis and uncal spurring noted C4-C7 most notable at C6-C7. No fracture or subluxation. Discs/spinal canal/neural foramina: Moderate to space narrowing C6-C7. Bilateral foraminal encroachment noted at this level. There is mild ventral canal stenosis. There is mild central disc bulge at multiple levels with generalized mild ventral thecal sac flattening. There is right foraminal stenosis at C5-C6. Soft tissues: No significant abnormality noted. Lung apices: No significant abnormality noted. IMPRESSION: Limited as above. No fracture. Degenerative changes noted. ACT 112: Negative or not required by law. Electronically signed by Ashley Villegas 07-04-2024 5:56 PM Wrist X-Ray 07/04/24 19:03 Exam(s): XR LEFT WRIST EXAM: XR Left Wrist Complete, 3 or More Views CLINICAL HISTORY: pain fall. TECHNIQUE: Frontal, lateral and oblique views of the left wrist. COMPARISON: No relevant prior studies available. FINDINGS: Bones/joints: No acute fracture. No dislocation. Soft tissues: Small peggy-like debris overlying the dorsal aspect of the wrist overlying the proximal metadiaphysis of the second through fifth digits. IMPRESSION: No acute fracture or dislocation. Peggy-like debris/foreign bodies overlying the dorsal aspect of the wrist. Electronically signed by: Mayank Vásquez M.D. 07/04/24 21:33 PM Code Status & VTE Plan VTE Prophylaxis Plan VTE Prophylaxis will be ordered: Yes PG Care Time/CCT Total # of Minutes Spent Total Time Spent with Patient: Total time spent is greater than 50% in coordination of care (as documented) at patient's floor/unit and/or counseling patient: Coding Level of Care Code 46745 INT INP/OBS CARE 2MIN Diagnoses Fall W19.XXXA Venous stasis ulcer of other part of lower leg, unspecified laterality, unspecified ulcer stage, unspecified whether varicose veins present I83.008; L97.809 Venous stasis ulcer site: other part of lower leg Varicose vein presence: unspecified whether present Laterality: unspecified laterality Non-pressure ulcer stage: unspecified non-pressure ulcer stage Elevated creatine kinase R74.8 Hypertension I10 Hyperlipidemia, unspecified hyperlipidemia type E78.5 Hyperlipidemia type: unspecified Uncontrolled diabetes mellitus with retinopathy E11.319; E11.65 (2) Venous stasis ulcers Venous stasis ulcer site: other part of lower leg Varicose vein presence: unspecified whether present Laterality: unspecified laterality Non-pressure ulcer stage: unspecified non-pressure ulcer stage Qualified Code(s): I83.008 - Varicose veins of unspecified lower extremity with ulcer other part of lower leg; L97.809 - Non-pressure chronic ulcer of other part of unspecified lower leg with unspecified severity (5) Hyperlipidemia Hyperlipidemia type: unspecified Qualified Code(s): E78.5 - Hyperlipidemia, unspecified
--- NOTE | 2024-07-04 21:22 | Emergency Department Note ---
ED Visit Note I was asked by Dr. Trevizo, ED attending physician, to perform a facial laceration repair on this 63-year-old male who fell down steps in his home. Please see Dr. Trevizo's dictation for further treatment and final disposition. PROCEDURE NOTE: The patient did have quite a bit of debris and crusting from dried blood on the right forehead region. With nursing assistance, the scalp and face were well cleansed, revealing a 1 cm laceration to the right forehead region. Mild bleeding is noted. No hematoma formation. The patient also has an abrasion over the bridge of the nose that will not require primary closure. The patient provided verbal consent for laceration repair under local anesthesia. Using lidocaine 1% with epinephrine, good local anesthesia was administered. The wound was then irrigated with normal saline. The wound was then approximated using 6-0 nylon simple interrupted sutures x 2 with good hemostasis. Bacitracin was applied. The bridge of the nose was also cleansed with bacitracin application. .
[2024-07-04] MEDS: DAPTOmycin 425 MG in SYRINGE 0 ML IV STA (21:28)
[2024-07-04] MEDS: DIPHTHERIA/TETANUS TOX ADSORB VACCINE (Td) 0.5 ML SYR/VIAL IM ONE (21:29)
[2024-07-04] MEDS: LIDOCAINE 1% LOCAL 20 ML VIAL INFIL ONE (21:31)
[2024-07-04] MEDS: LIDOCAINE 1%/EPINEPHRINE 1:100,000 50 ML VIAL INFIL ONE (21:31)
--- NOTE | 2024-07-04 21:34 | XRay Report ---
Exam(s): XR LEFT WRIST EXAM: XR Left Wrist Complete, 3 or More Views CLINICAL HISTORY: pain fall. TECHNIQUE: Frontal, lateral and oblique views of the left wrist. COMPARISON: No relevant prior studies available. FINDINGS: Bones/joints: No acute fracture. No dislocation. Soft tissues: Small peggy-like debris overlying the dorsal aspect of the wrist overlying the proximal metadiaphysis of the second through fifth digits. IMPRESSION: No acute fracture or dislocation. Peggy-like debris/foreign bodies overlying the dorsal aspect of the wrist. Electronically signed by: Mayank Vásquez M.D. 07/04/24 21:33 PM
[2024-07-04] MEDS: PIPERACILLIN/TAZOBACTAM 4.5 GM/100 ML BAG IV ONE (22:23)
[2024-07-04] MEDS ORDERED: ONDANSETRON INJ 2 MG/ML 2 ML VIAL IV PRN (23:41)
[2024-07-04] MEDS ORDERED: POLYETHYLENE (MIRALAX) 17 GM PACK PO PRN (23:41)
[2024-07-04] MEDS ORDERED: GLUCAGON FOR INJ 1 MG VIAL SQ PRN (23:41)
[2024-07-04] MEDS ORDERED: GLUCOSE 10 TAB/TUBE PO PRN (23:41)
[2024-07-04] MEDS ORDERED: CARBOHYDRATES FOR HYPOGLYCEMIA PO PRN (23:41)
[2024-07-04] MEDS ORDERED: DEXTROSE 50% 50 ML SYRINGE IV PRN (23:41)
[2024-07-04] MEDS ORDERED: GLUCOSE 40% GEL 15 GM TUBE PO PRN (23:41)
[2024-07-04] MEDS ORDERED: DOCUSATE SODIUM 100 MG CAP PO PRN (23:41)
[2024-07-05 00:05] LABS: Magnesium 2.1 mg/dl (1.7-2.4); Phosphorus 3.5 mg/dl (2.5-4.9)
[2024-07-05] MEDS: MoRPHine SULFATE 2 MG/ML CARP IV PRN (00:42)
[2024-07-05] MEDS: GABAPENTIN 100 MG CAP PO SCH (00:52)
[2024-07-05] MEDS: amLODIPine BESYLATE 5 MG TAB PO SCH (00:52)
[2024-07-05] MEDS: LANTUS PER UNIT CHARGE SQ SCH (02:18)
[2024-07-05] MEDS: INSULIN ASPART PER UNIT CHARGE SC SCH (02:19)
[2024-07-05] MEDS: CALCIUM GLUCONATE 1,000 MG/60 ML BAG IV STA (03:38)
[2024-07-05] MEDS: MoRPHine SULFATE 4 MG/ML 1 ML CARP\\VIAL IV PRN (03:45)
[2024-07-05] MEDS: PIPERACILLIN/TAZOBACTAM 4.5 GM/100 ML BAG IV SCH (05:43)
[2024-07-05] MEDS: EZETIMIBE 10 MG TAB PO SCH (09:10)
[2024-07-05] MEDS: SPIRONOLACTONE 25 MG TAB PO SCH (09:10)
[2024-07-05] MEDS: ACETAMINOPHEN 325 MG TAB PO PRN (09:10)
[2024-07-05] MEDS: LOSARTAN POTASSIUM 50 MG TAB PO SCH (09:11)
[2024-07-05] MEDS: METOPROLOL SUCC 25MG EXT REL TAB PO SCH (09:11)
[2024-07-05] MEDS: TORSEMIDE 20 MG TAB PO SCH (09:11)
[2024-07-05 09:22] LABS: Hematocrit (blood only) 38.8 % (42.0-52.0); Mean Corpuscular Hemoglobin 30.6 pg (25.0-34.0); Mean Corpuscular Hgb Conc 33.5 g/dL (32.0-36.0); Mean Corpuscular Volume 91.3 fL (80.0-100.0); Mean Platelet Volume 9.8 fL (9.4-12.4); Platelet Count 282 K/uL (130-400); RDW Coefficient of Variation 12.6 % (11.5-14.5); RDW Standard Deviation 42.1 fL (36.4-46.3); Red Blood Count 4.25 M/uL (4.70-6.10); White Blood Count 14.07 K/ul (4.8-10.8)
[2024-07-05 09:26] LABS: Albumin Level 3.4 gm/dl (3.4-5.0); Bilirubin Direct 0.1 mg/dl (0-0.2); Bilirubin,Total 1.1 mg/dl (0.2-1.0); Calcium 8.6 mg/dl (8.6-10.3); Potassium 5.3 mmol/L (3.5-5.1)
[2024-07-05 09:30] LABS: Total Protein 6.7 gm/dl (6.0-8.3)
--- NOTE | 2024-07-05 11:19 | Hospitalist Progress Note ---
Date of Service July 05, 2024 Assessment & Plan (1) Fall: Plan: 63yo male admitted following a mechanical fall down the stairs he sustained facial contusion and laceration Also mild elevation in CPK PT/OT (2) Forehead laceration: Plan: Laceration was sutured in the ED and the wound cleaned (3) Rhabdomyolysis: Plan: Mild Rhabdo, slight worsening of CPK will hold daptomycin continue IV saline (4) Venous stasis ulcers: Plan: Noted. Some foul smelling drainage noted. Patient cares for his wounds at home. He does have marked leukocytosis with WBC=28.19, neutrophil predominance and bands present - question if this is reactive from his recent fall/trauma vs infectious source. He does not appear to be septic at this time. -Follow cultures sent from ER -Empiric coverage for now with Zosyn some improvement in WBC, 14k today -Wound Care (5) Hypertension: Plan: Blood pressure at goal -Continue home Metoprolol, Amlodipine, Spironolactone and Irbesartan -Pain control as above -Continue to monitor (6) Hyperlipidemia: Plan: Chronic -Continue Ezetimibe (7) Uncontrolled diabetes mellitus with retinopathy: Plan: Noted -Lantus 20u BID -ISS -Continue Gabapentin -Goal blood sugar 110 - 140 (8) Elevated creatine kinase: Plan: Elevated GT=930 at present -Encourage fluid intake. Patient reports that his legs become swollen very quickly with IVF -Repeat CK in AM -May need to DC Daptomycin pending repeat labs Plan JOSHUA - chronic. stable. Patient is compliant with home BiPAP -BiPAP qHS F/E/N - saline lock. Calcium gluconate x 1gm given, repeat chemistry in AM, CC diet as tolerated Ppx - encourage ambulation Code - Full Dispo - Observation to medical with telemetry Admission and Anticipated Discharge Date Admission Date: July 04, 2024 Subjective patient seen and examined, still having a lot of body aches and pains Review of Systems Review of Systems: All systems reviewed are negative, apart from the ones contained in the history. Physical Exam Physical Exam: The patient is awake, alert and oriented 3, well developed and well nourished, normocephalic and atraumatic, lying in bed and in no acute distress. HEENT--PERRL, EOMI, mucous membranes and oropharynx mildly dry Neck--supple. No JVD. No bruits. Thyroid normal, trachea midline, no adenopathy. Heart--normal S1 and S2. No murmurs, rubs or gallops. Lungs--clear bilaterally, no respiratory distress, no accessory muscle use. Abdomen--normal bowel sounds and soft. Extremities--no cyanosis or clubbing. No edema. Dermatologic--normal skin turgor, normal color, no abnormal lymph nodes, no rash. Neurologic--cranial nerves II through XII grossly intact. Rheumatologic--normal range of motion. Psychiatric--normal affect. Results & Data Results & Data Vital Signs (Past 12 Hours) Vital Signs Temp Pulse Pulse Pulse Resp BP BP 07/05/24 09:32 07/05/24 08:31 62 07/05/24 07:54 97.9 F 68 18 127/65 07/05/24 02:36 07/05/24 02:36 97.7 F 67 16 07/05/24 01:57 64 07/05/24 01:15 65 15 138/60 07/05/24 00:59 66 12 07/05/24 00:09 63 BP Pulse Ox O2 Del Method 07/05/24 09:32 Room Air 07/05/24 08:31 07/05/24 07:54 97 Room Air 07/05/24 02:36 Room Air, BiPAP 07/05/24 02:36 152/75 H 93 Room Air, BiPAP 07/05/24 01:57 07/05/24 01:15 94 Room Air 07/05/24 00:59 155/68 H 93 Room Air 07/05/24 00:09 PG Care Time/CCT Total # of Minutes Spent Total Time Spent with Patient: Total time spent is greater than 50% in coordination of care (as documented) at patient's floor/unit and/or counseling patient: Coding Level of Care Code 09449 SUB INP/OBS CARE 2/35MIN Diagnoses Fall W19.XXXA Forehead laceration S01.81XA Encounter type: initial encounter Rhabdomyolysis M62.82 Venous stasis ulcer of other part of lower leg, unspecified laterality, unspecified ulcer stage, unspecified whether varicose veins present I83.008; L97.809 Venous stasis ulcer site: other part of lower leg Varicose vein presence: unspecified whether present Laterality: unspecified laterality Non-pressure ulcer stage: unspecified non-pressure ulcer stage Hypertension I10 Hyperlipidemia, unspecified hyperlipidemia type E78.5 Hyperlipidemia type: unspecified Uncontrolled diabetes mellitus with retinopathy E11.319; E11.65 Elevated creatine kinase R74.8 Time Spent (min) 35 (2) Forehead laceration Encounter type: initial encounter Qualified Code(s): S01.81XA - Laceration without foreign body of other part of head, initial encounter (4) Venous stasis ulcers Venous stasis ulcer site: other part of lower leg Varicose vein presence: unspecified whether present Laterality: unspecified laterality Non-pressure ulcer stage: unspecified non-pressure ulcer stage Qualified Code(s): I83.008 - Varicose veins of unspecified lower extremity with ulcer other part of lower leg; L97.809 - Non-pressure chronic ulcer of other part of unspecified lower leg with unspecified severity (6) Hyperlipidemia Hyperlipidemia type: unspecified Qualified Code(s): E78.5 - Hyperlipidemia, unspecified
[2024-07-05] MEDS: SODIUM CHLORIDE 0.9% 1,000 ML IV SCH (11:25)
[2024-07-05] MEDS ORDERED: DAPTOmycin 500 MG in SYRINGE 0 ML IV SCH (21:00)
--- NOTE | 2024-07-05 21:51 | Electrocardiogram Report ---
Test Reason : Blood Pressure : */* mmHG Vent. Rate : 70 BPM Atrial Rate : 70 BPM P-R Int : 216 ms QRS Dur : 158 ms QT Int : 424 ms P-R-T Axes : 86 22 54 degrees QTcB Int : 457 ms Sinus rhythm with 1st degree A-V block Right bundle branch block Abnormal ECG When compared with ECG of 28-Jan-2024 09:18, HI interval has decreased Confirmed by Ariel Husain ([id number]) on 07/05/2024 9:51:31 PM Referred By: REFERRED SELF Confirmed By: Ariel Husain
[2024-07-06 04:46] LABS: Calcium 8.7 mg/dl (8.6-10.3); Potassium 4.9 mmol/L (3.5-5.1)
[2024-07-06 04:52] LABS: BUN Creatinine Ratio 20.6 (10-20); Creatinine Clr Calc Pharmacy 81.2 ml/min
[2024-07-06] MEDS: KETOROLAC TROMETHAMINE 15 MG/ML VIAL IV ONE (10:53)
--- NOTE | 2024-07-06 11:12 | XRay Report ---
XR hand RT min 3V routine CLINICAL HISTORY: pain and swelling TECHNIQUE: 3 views of the right hand were obtained. Comparison: None available at the time of this dictation. FINDINGS: There is no evidence of an acute fracture. Degenerative changes are seen most prominently in the dist al interphalangeal joints. Mild diffuse soft tissue swelling. IMPRESSION: Soft tissue swelling is seen without evidence of underlying bony abnormality. ACT 112: Negative or not required by law. Electronically signed by: Antonio Correa M.D. 07/06/2024 11:11 AM
--- NOTE | 2024-07-06 14:39 | Hospitalist Progress Note ---
Date of Service July 06, 2024 Assessment & Plan (1) Fall: Plan: 63yo male admitted following a mechanical fall down the stairs he sustained facial contusion and laceration Also mild elevation in CPK PT/OT complains of pain and swelling on the right hand x ray showed only soft tissue swelling, no fracture (2) Forehead laceration: Plan: Laceration was sutured in the ED and the wound cleaned (3) Rhabdomyolysis: Plan: now resolved (4) Venous stasis ulcers: Plan: Noted. Some foul smelling drainage noted. Patient cares for his wounds at home. -Follow cultures sent from ER -Empiric coverage for now with Zosyn some improvement in WBC, -Wound Care (5) Hypertension: Plan: Blood pressure at goal -Continue home Metoprolol, Amlodipine, Spironolactone and Irbesartan -Pain control as above -Continue to monitor (6) Hyperlipidemia: Plan: Chronic -Continue Ezetimibe (7) Uncontrolled diabetes mellitus with retinopathy: Plan: Noted -Lantus 20u BID -ISS -Continue Gabapentin -Goal blood sugar 110 - 140 (8) Elevated creatine kinase: Plan: Elevated PC=351 at present -Encourage fluid intake. Patient reports that his legs become swollen very quickly with IVF -Repeat CK in AM -May need to DC Daptomycin pending repeat labs (9) REBECCA (acute kidney injury): Plan: most likey pre renal received some IV fluids monitor (10) BMI 50.0-59.9, adult: Plan: adviced on lifestyle modifications (11) Infected stasis ulcer of left lower extremity: Plan: continue wound care IV zosyn Plan JOSHUA - chronic. stable. Patient is compliant with home BiPAP -BiPAP qHS F/E/N - saline lock. Calcium gluconate x 1gm given, repeat chemistry in AM, CC diet as tolerated Ppx - encourage ambulation Code - Full Dispo - awaiting PT eval Admission and Anticipated Discharge Date Admission Date: July 05, 2024 Subjective patient seen and examined, still having a lot of body aches and pains, especially on the right hand Review of Systems Review of Systems: All systems reviewed are negative, apart from the ones contained in the history. Physical Exam Physical Exam: The patient is awake, alert and oriented 3, well developed and well nourished, normocephalic and atraumatic, lying in bed and in no acute distress. HEENT--PERRL, EOMI, mucous membranes and oropharynx mildly dry Neck--supple. No JVD. No bruits. Thyroid normal, trachea midline, no adenopathy. Heart--normal S1 and S2. No murmurs, rubs or gallops. Lungs--clear bilaterally, no respiratory distress, no accessory muscle use. Abdomen--normal bowel sounds and soft. Extremities--no cyanosis or clubbing. No edema. Dermatologic--normal skin turgor, normal color, no abnormal lymph nodes, no rash. Neurologic--cranial nerves II through XII grossly intact. Rheumatologic--normal range of motion. Psychiatric--normal affect. Results & Data Results & Data Vital Signs (Past 12 Hours) Vital Signs Temp Pulse Pulse Resp BP Pulse Ox O2 Del Method 07/06/24 11:49 98.4 F 81 18 129/75 91 Room Air 07/06/24 08:00 Room Air 07/06/24 07:59 98.4 F 79 20 153/78 H 90 Room Air 07/06/24 07:37 80 07/06/24 03:54 98.1 F 76 18 156/68 H 90 Room Air 07/06/24 02:41 Room Air PG Care Time/CCT Total # of Minutes Spent Total Time Spent with Patient: Total time spent is greater than 50% in coordination of care (as documented) at patient's floor/unit and/or counseling patient: Coding Level of Care Code 48237 SUB INP/OBS CARE 2/35MIN Diagnoses Fall W19.XXXA Forehead laceration S01.81XA Encounter type: initial encounter Rhabdomyolysis M62.82 Venous stasis ulcer of other part of lower leg, unspecified laterality, unspecified ulcer stage, unspecified whether varicose veins present I83.008; L97.809 Venous stasis ulcer site: other part of lower leg Varicose vein presence: unspecified whether present Laterality: unspecified laterality Non-pressure ulcer stage: unspecified non-pressure ulcer stage Hypertension I10 Hyperlipidemia, unspecified hyperlipidemia type E78.5 Hyperlipidemia type: unspecified Uncontrolled diabetes mellitus with retinopathy E11.319; E11.65 Elevated creatine kinase R74.8 REBECCA (acute kidney injury) N17.9 BMI 50.0-59.9, adult Z68.43 Infected stasis ulcer of left lower extremity I83.229; L97.929 Time Spent (min) 35 (2) Forehead laceration Encounter type: initial encounter Qualified Code(s): S01.81XA - Laceration without foreign body of other part of head, initial encounter (4) Venous stasis ulcers Venous stasis ulcer site: other part of lower leg Varicose vein presence: unspecified whether present Laterality: unspecified laterality Non-pressure ulcer stage: unspecified non-pressure ulcer stage Qualified Code(s): I83.008 - Varicose veins of unspecified lower extremity with ulcer other part of lower leg; L97.809 - Non-pressure chronic ulcer of other part of unspecified lower leg with unspecified severity (6) Hyperlipidemia Hyperlipidemia type: unspecified Qualified Code(s): E78.5 - Hyperlipidemia, unspecified
[2024-07-07] MEDS: traMADol HCL 50 MG TABLET PO PRN (07:36)
[2024-07-07 09:34] LABS: Calcium 8.7 mg/dl (8.6-10.3); Potassium 5.9 mmol/L (3.5-5.1)
[2024-07-07 09:44] LABS: BUN Creatinine Ratio 20.8 (10-20); Creatinine Clr Calc Pharmacy 90.6 ml/min
[2024-07-07] MEDS: FUROSEMIDE 40 MG/4 ML VIAL IV ONE (10:01)
[2024-07-07] MEDS: bisacodyL 10 MG SUPP PR STA (10:01)
[2024-07-07 10:54] LABS: Hematocrit (blood only) 40.4 % (42.0-52.0); Hemoglobin 13.6 g/dl (14.0-18.0); Mean Corpuscular Hemoglobin 30.8 pg (25.0-34.0); Mean Corpuscular Hgb Conc 33.7 g/dL (32.0-36.0); Mean Corpuscular Volume 91.4 fL (80.0-100.0); RDW Coefficient of Variation 12.3 % (11.5-14.5); RDW Standard Deviation 41.3 fL (36.4-46.3); Red Blood Count 4.42 M/uL (4.70-6.10)
[2024-07-07 11:11] LABS: Mean Platelet Volume 10.1 fL (9.4-12.4); Platelet Count 224 K/uL (130-400); Platelet Estimate Normal (Normal)
--- NOTE | 2024-07-07 12:16 | Hospitalist Progress Note ---
Date of Service July 07, 2024 Assessment & Plan (1) Fall: Plan: 63yo male admitted following a mechanical fall down the stairs he sustained facial contusion and laceration Also mild elevation in CPK on admission, now wnl PT/OT complains of pain and swelling on the right hand x ray showed only soft tissue swelling, no fracture (2) Forehead laceration: Plan: Laceration was sutured in the ED and the wound cleaned (3) Uncontrolled diabetes mellitus with retinopathy: Plan: Still waking up with hyperglycemia -On Lantus 20u BID, will increase to Lantus 25 BID -ISS -Continue Gabapentin -Goal blood sugar 110 - 140 (4) Rhabdomyolysis: Plan: now resolved (5) Venous stasis ulcers: Plan: Patient cares for his wounds at home, has refused to go for wound care outpatient -Follow cultures sent from ER -Empiric coverage for now with Zosyn some improvement in WBC, -Wound Care (6) Hypertension: Plan: Blood pressure at goal -Continue home Metoprolol, Amlodipine, Spironolactone and Irbesartan -Pain control as above -Continue to monitor (7) Hyperlipidemia: Plan: Chronic -Continue Ezetimibe (8) Elevated creatine kinase: Plan: Resolved (9) REBECCA (acute kidney injury): Plan: most likey pre renal received some IV fluids monitor (10) BMI 50.0-59.9, adult: Plan: adviced on lifestyle modifications (11) Infected stasis ulcer of left lower extremity: Plan: continue wound care IV zosyn Plan JOSHUA - chronic. stable. Patient is compliant with home BiPAP -BiPAP qHS F/E/N - saline lock. Calcium gluconate x 1gm given, repeat chemistry in AM, CC diet as tolerated Ppx - encourage ambulation Code - Full Dispo - PT recommends rehab Admission and Anticipated Discharge Date Admission Date: July 05, 2024 Subjective patient seen and examined, still having a lot of body aches and pains, especially on the right hand Review of Systems Review of Systems: All systems reviewed are negative, apart from the ones contained in the history. Physical Exam Physical Exam: The patient is awake, alert and oriented 3, well developed and well nourished, normocephalic and atraumatic, lying in bed and in no acute distress. HEENT--PERRL, EOMI, mucous membranes and oropharynx mildly dry Neck--supple. No JVD. No bruits. Thyroid normal, trachea midline, no adenopathy. Heart--normal S1 and S2. No murmurs, rubs or gallops. Lungs--clear bilaterally, no respiratory distress, no accessory muscle use. Abdomen--normal bowel sounds and soft. Extremities--no cyanosis or clubbing. No edema. Dermatologic--normal skin turgor, normal color, no abnormal lymph nodes, no rash. Neurologic--cranial nerves II through XII grossly intact. Rheumatologic--normal range of motion. Psychiatric--normal affect. Results & Data Results & Data Vital Signs (Past 12 Hours) Vital Signs Temp Pulse Pulse Resp BP Pulse Ox O2 Del Method 07/07/24 11:28 98.1 F 16 157/72 H 92 Room Air 07/07/24 07:55 Room Air 07/07/24 07:33 97.9 F 63 18 162/71 H 90 Room Air 07/07/24 07:00 57 L 07/07/24 03:08 98.1 F 68 18 158/71 H 94 Room Air PG Care Time/CCT Total # of Minutes Spent Total Time Spent with Patient: Total time spent is greater than 50% in coordination of care (as documented) at patient's floor/unit and/or counseling patient: Coding Level of Care Code 40872 SUB INP/OBS CARE MIN Diagnoses Fall W19.XXXA Forehead laceration S01.81XA Encounter type: initial encounter Uncontrolled diabetes mellitus with retinopathy E11.319; E11.65 Rhabdomyolysis M62.82 Venous stasis ulcer of other part of lower leg, unspecified laterality, unspecified ulcer stage, unspecified whether varicose veins present I83.008; L97.809 Venous stasis ulcer site: other part of lower leg Varicose vein presence: unspecified whether present Laterality: unspecified laterality Non-pressure ulcer stage: unspecified non-pressure ulcer stage Hypertension I10 Hyperlipidemia, unspecified hyperlipidemia type E78.5 Hyperlipidemia type: unspecified Elevated creatine kinase R74.8 REBECCA (acute kidney injury) N17.9 BMI 50.0-59.9, adult Z68.43 Infected stasis ulcer of left lower extremity I83.229; L97.929 Time Spent (min) 35 (2) Forehead laceration Encounter type: initial encounter Qualified Code(s): S01.81XA - Laceration without foreign body of other part of head, initial encounter (5) Venous stasis ulcers Venous stasis ulcer site: other part of lower leg Varicose vein presence: unspecified whether present Laterality: unspecified laterality Non-pressure ulcer stage: unspecified non-pressure ulcer stage Qualified Code(s): I83.008 - Varicose veins of unspecified lower extremity with ulcer other part of lower leg; L97.809 - Non-pressure chronic ulcer of other part of unspecified lower leg with unspecified severity (7) Hyperlipidemia Hyperlipidemia type: unspecified Qualified Code(s): E78.5 - Hyperlipidemia, unspecified
[2024-07-07] MEDS: SODIUM ZIRCONIUM CYCLOSILICATE 10 GM PACKET PO SCH (14:04)
[2024-07-07] MEDS: LANTUS PER UNIT CHARGE SQ SCH (20:21)
[2024-07-08 07:16] LABS: Hematocrit (blood only) 41.9 % (42.0-52.0); Mean Corpuscular Hemoglobin 30.6 pg (25.0-34.0); Mean Corpuscular Hgb Conc 33.4 g/dL (32.0-36.0); Mean Corpuscular Volume 91.7 fL (80.0-100.0); Mean Platelet Volume 9.7 fL (9.4-12.4); Platelet Count 272 K/uL (130-400); RDW Coefficient of Variation 12.5 % (11.5-14.5); RDW Standard Deviation 41.4 fL (36.4-46.3); Red Blood Count 4.57 M/uL (4.70-6.10); White Blood Count 13.96 K/ul (4.8-10.8)
[2024-07-08 07:37] LABS: BUN Creatinine Ratio 26.2 (10-20); Calcium 9.1 mg/dl (8.6-10.3); Creatinine Clr Calc Pharmacy 105.1 ml/min; Potassium 4.8 mmol/L (3.5-5.1)
[2024-07-08] MEDS: FUROSEMIDE 40 MG/4 ML VIAL IV ONE (07:44)
[2024-07-08] MEDS: FUROSEMIDE 40 MG/4 ML VIAL IV SCH (07:44)
[2024-07-08] MEDS ORDERED: VANCOMYCIN HCL 2,750 MG in SODIUM CHLORIDE 0.9% 500 ML IV ONE (07:51)
[2024-07-08] MEDS ORDERED: VANCOMYCIN CONSULT ACTIVE PRN (07:51)
--- NOTE | 2024-07-08 10:07 | Hospitalist Progress Note ---
Date of Service July 08, 2024 Assessment & Plan (1) Fall: Plan: 63yo male admitted following a mechanical fall down the stairs he sustained facial contusion and laceration Also mild elevation in CPK on admission, now wnl PT/OT complains of pain and swelling on the right hand x ray showed only soft tissue swelling, no fracture (2) Venous stasis ulcers: Plan: Patient cares for his wounds at home, has refused to go for wound care outpatient -Follow cultures sent from ER -Wound cultures growing Psudomonas, change abx to cefepime -some improvement in WBC, -Wound Care -Discharge on PO Cipro (3) Forehead laceration: Plan: Laceration was sutured in the ED and the wound cleaned (4) Uncontrolled diabetes mellitus with retinopathy: Plan: Still waking up with hyperglycemia -On Lantus 20u BID, will increase to Lantus 25 BID -ISS -Continue Gabapentin -Goal blood sugar 110 - 140 (5) Rhabdomyolysis: Plan: now resolved (6) Hypertension: Plan: Blood pressure at goal -Continue home Metoprolol, Amlodipine, Spironolactone and Irbesartan -Pain control as above -Continue to monitor (7) Hyperlipidemia: Plan: Chronic -Continue Ezetimibe (8) Elevated creatine kinase: Plan: Resolved (9) REBECCA (acute kidney injury): Plan: most likey pre renal received some IV fluids monitor (10) BMI 50.0-59.9, adult: Plan: adviced on lifestyle modifications (11) Infected stasis ulcer of left lower extremity: Plan: As above Plan JOSHUA - chronic. stable. Patient is compliant with home BiPAP -BiPAP qHS F/E/N - saline lock. Calcium gluconate x 1gm given, repeat chemistry in AM, CC diet as tolerated Ppx - encourage ambulation Code - Full Dispo - PT recommends rehab, will d/c to rehab when accepted, although patient is leaning towards home Admission and Anticipated Discharge Date Admission Date: July 05, 2024 Subjective patient seen and examined, still having a lot of body aches and pains, especially on the right hand Review of Systems Review of Systems: All systems reviewed are negative, apart from the ones contained in the history. Physical Exam Physical Exam: The patient is awake, alert and oriented 3, well developed and well nourished, normocephalic and atraumatic, lying in bed and in no acute distress. HEENT--PERRL, EOMI, mucous membranes and oropharynx mildly dry Neck--supple. No JVD. No bruits. Thyroid normal, trachea midline, no adenopathy. Heart--normal S1 and S2. No murmurs, rubs or gallops. Lungs--clear bilaterally, no respiratory distress, no accessory muscle use. Abdomen--normal bowel sounds and soft. Extremities--no cyanosis or clubbing. No edema. Dermatologic--normal skin turgor, normal color, no abnormal lymph nodes, no rash. Neurologic--cranial nerves II through XII grossly intact. Rheumatologic--normal range of motion. Psychiatric--normal affect. Results & Data Results & Data Vital Signs (Past 12 Hours) Vital Signs Temp Pulse Pulse Resp BP Pulse Ox O2 Del Method 07/08/24 07:32 98.2 F 68 18 128/76 92 Room Air 07/08/24 06:53 72 07/08/24 03:21 98.6 F 55 L 16 148/72 H 91 Room Air 07/07/24 23:00 98.1 F 71 18 153/73 H 92 Room Air 07/07/24 22:15 66 PG Care Time/CCT Total # of Minutes Spent Total Time Spent with Patient: Total time spent is greater than 50% in coordination of care (as documented) at patient's floor/unit and/or counseling patient: Coding Level of Care Code 72449 SUB INP/OBS CARE 2/35MIN Diagnoses Fall W19.XXXA Venous stasis ulcer of other part of lower leg, unspecified laterality, unspecified ulcer stage, unspecified whether varicose veins present I83.008; L97.809 Venous stasis ulcer site: other part of lower leg Varicose vein presence: unspecified whether present Laterality: unspecified laterality Non-pressure ulcer stage: unspecified non-pressure ulcer stage Forehead laceration S01.81XA Encounter type: initial encounter Uncontrolled diabetes mellitus with retinopathy E11.319; E11.65 Rhabdomyolysis M62.82 Hypertension I10 Hyperlipidemia, unspecified hyperlipidemia type E78.5 Hyperlipidemia type: unspecified Elevated creatine kinase R74.8 REBECCA (acute kidney injury) N17.9 BMI 50.0-59.9, adult Z68.43 Infected stasis ulcer of left lower extremity I83.229; L97.929 Time Spent (min) 35 (2) Venous stasis ulcers Venous stasis ulcer site: other part of lower leg Varicose vein presence: unspecified whether present Laterality: unspecified laterality Non-pressure ulcer stage: unspecified non-pressure ulcer stage Qualified Code(s): I83.008 - Varicose veins of unspecified lower extremity with ulcer other part of lower leg; L97.809 - Non-pressure chronic ulcer of other part of unspecified lower leg with unspecified severity (3) Forehead laceration Encounter type: initial encounter Qualified Code(s): S01.81XA - Laceration without foreign body of other part of head, initial encounter (7) Hyperlipidemia Hyperlipidemia type: unspecified Qualified Code(s): E78.5 - Hyperlipidemia, unspecified
[2024-07-08] MEDS: CEFEPIME 2000MG 2,000 MG/20 ML SYR IV SCH (10:39)
[2024-07-08] MEDS: POLYETHYLENE (MIRALAX) 17 GM PACK PO SCH (10:43)
[2024-07-08] MEDS: INSULIN ASPART PER UNIT CHARGE SC STA (17:26)
[2024-07-08 23:43] VITALS: RESP 18
[2024-07-09 03:39] VITALS: O2SAT 92
[2024-07-09 07:19] LABS: Hematocrit (blood only) 40.3 % (42.0-52.0); Hemoglobin 13.3 g/dl (14.0-18.0); Mean Corpuscular Hemoglobin 29.8 pg (25.0-34.0); Mean Corpuscular Volume 90.4 fL (80.0-100.0); Mean Platelet Volume 9.5 fL (9.4-12.4); Platelet Count 256 K/uL (130-400); RDW Coefficient of Variation 12.2 % (11.5-14.5); RDW Standard Deviation 40.5 fL (36.4-46.3); Red Blood Count 4.46 M/uL (4.70-6.10); White Blood Count 14.97 K/ul (4.8-10.8)
[2024-07-09 07:30] VITALS: PULSE 60; TEMP 98.1
[2024-07-09 07:32] LABS: BUN Creatinine Ratio 30.3 (10-20); Creatinine Clr Calc Pharmacy 103.7 ml/min; Potassium 4.9 mmol/L (3.5-5.1)
--- NOTE | 2024-07-09 10:23 | Discharge Summary ---
Discharge Summary Date of Service July 09, 2024 Principal Dx & Hospital Course #1 = Principal Diagnosis (1) Fall: Mechanical fall at home. Fortunately no fractures. He did suffer a contusion and laceration of the right forehead area. Treated with OT and PT while hospitalized. Home with home health services requested. (2) Venous stasis ulcers: Pseudomonas isolated. Chronic leg ulcerations. He is now willing to go to the wound clinic. Treated with intravenous cefepime while hospitalized and then oral ciprofloxacin which we will continue at discharge. (3) Forehead laceration: Laceration was sutured in the ED. sutures will need to be removed on day 7 after the original injury. This can be done by the PCP. (4) Uncontrolled diabetes mellitus with retinopathy: ADA diet. Lantus therapy. Sliding scale coverage. (5) Rhabdomyolysis: Present on admission. Now resolved (6) Hypertension: Stable. Continue metoprolol, amlodipine, and irbesartan (7) Hyperlipidemia: Stable. Continue Zetia (8) REBECCA (acute kidney injury): most likey pre renal. Resolved with IV fluids (9) BMI 50.0-59.9, adult: Significant weight loss recommended (10) Infected stasis ulcer of left lower extremity: Chronic. Continue Cipro at discharge. Outpatient wound clinic management Plan Home today, July 09, with home health services Admission HPI Per Admitting Provider Terrance Walker is a 63yo male with history of ITP, JOSHUA on home BiPAP qHS, HTN, HLP and DM presenting fallowing a fall down his cellar stairs. Patient has been in his usual state of health until this afternoon around 15:00 when he was walking down his cellar stairs. He was reaching out to grasp something and lost his balance and fell face first onto his stairs. He reports breaking the fall with his hands but then sliding down 5-6 concrete stairs injuring his face and hands. He did not directly strike his head. No LOC. Presently complaining of diffuse pain involving his anterior chest wall, back, hands, arms and face. Patient additionally with chronic venous stasis ulcers of his bilateral LE. He has been caring for them at home wtih saline irrigation and dressing them with gauze. He has noted some foul smelling drainage. Denies fever, chills, cough, SOB, abdominal pain, nausea, vomiting, diarrhea. No additional complaints at this time ER Course: Tylenol Toradol Morphine Daptomycin TDap vaccine Lidocaine Zosyn s/p repair of right supraorbital facial laceration - 6-0 nylon sutures x 2 Discharge Exam General-alert and oriented x3, no fever, no chills. Morbidly obese HEENT-head atraumatic and normocephalic, pupils equal and reactive to light, extraocular muscles intact Neck-no lymphadenopathy or thyromegaly, trachea midline Chest-clear to auscultation. No rales, wheezing or rhonchi Cardiac-regular rate and rhythm, normal S1 and S2 Abdomen-normal bowel sounds, no hepatosplenomegaly Extremities-chronic venous stasis ulcerations bilateral lower extremities below the knees. Chronic appearing bilateral lower extremity edema Neuro-cranial nerves II through XII intact, motor and sensory function within normal limits, strength symmetrical with generalized weakness, no focal deficits Psych-normal affect, normal mood Discharge Plan Discharge Items Patient Disposition: Home - Home Health Services Reason For Visit: FALL Discharge Diagnosis: Mechanical fall, right forehead laceration, acute kidney injury, mild rhabdomyolysis, incidental finding of right adrenal mass Activity: Resume your previous activity Non-emergency contact: Primary Care Provider Call non-emergency contact if: you have any medication questions and your symptoms worsen Follow-up/Referrals: Jeremy Chang CRNP [Primary Care Provider] - Diet: Carb Consistent or DM2 Addtl Attending Provider Instructions: Continue Cipro 500 mg twice a day for 1 more week. Take tramadol 50 mg every 6 hours if needed for pain. Prescriptions have been sent to [facility] pharmacy in [place] Pending Studies at Discharge: No Stand-Alone Forms: My [facility], Smoking Cessation Medications and DC Order Prescriptions: New tramadol 50 mg Tablet 50 mg PO Q6H PRN (Reason: pain) Qty: 20 0RF ciprofloxacin HCl [Cipro] 500 mg tablet 500 mg PO BID Qty: 20 0RF Continued (DME) pen needle, diabetic [Easy Comfort Pen Towanda] 32 gauge x /32" needle See Rx Instructions .Route Qty: 100 1RF Rx Instructions: use to inject victoza daily (DME) insulin syringe-needle U-100 [BD Insulin Syringe Ultra-Fine] 1 mL 30 gauge x 1/2" syringe See Dose Instructions .ROUTE .MEDSUPPLY Qty: 180 5RF Rx Instructions: USE WITH INSULIN DAILY 5-6 needles per day spironolactone 25 mg tablet 25 mg PO QAM Qty: 90 2RF torsemide 20 mg tablet 20 mg PO QAM Qty: 90 3RF gabapentin 100 mg capsule 100 mg PO BID Qty: 180 3RF amlodipine 5 mg tablet 5 mg PO BID Qty: 180 1RF Rx Instructions: TAKE ONE TABLET BY MOUTH TWICE DAILY Mounjaro 5 mg/0.5 mL pen injector 5 mg subcut WK Qty: 2 4RF Patient Comments: takes on sundays > last dose 04/15/24 Rx Instructions: sundays Humulin N NPH U-100 Insulin 100 unit/mL suspension See Rx Instructions subcut UD Qty: 30 2RF Patient Comments: sliding scale coverage depending on what i eat, no less than twice a day , sometimes mix regular with nph Rx Instructions: subcutaneously use as directed; use up to 400 units a day per sliding scale Humulin R Regular U-100 Insuln 100 unit/mL solution See Rx Instructions subcut .COMPLEX Qty: 30 2RF Rx Instructions: subcutaneously; Sliding scale, sometimes mix regular with nph MDD 160 UNITS PER DAY (DME) FreeStyle Fabio 3 Sensor Device See Rx Instructions .Route Qty: 2 5RF Rx Instructions: Change every 14 days DX: E11.319 (DME) FreeStyle Fabio 3 [place] Misc See Rx Instructions .Route Qty: 1 0RF Rx Instructions: DX CODE- E11.319 irbesartan 300 mg tablet 300 mg PO QAM Qty: 90 1RF (DME) CPAP Machine Misc See Rx Instructions .ROUTE .MEDSUPPLY Qty: 1 0RF Rx Instructions: BIPAP WITH 4L O2. HEATED HUMIDITY. BIPAP SUPPLIES. MASK OF CHOICE WHEN NEEDED. ADAM 99. CARE PLUS O2. metformin 500 mg tablet extended release 24 hr 500 mg PO BID 90 Days Qty: 180 3RF Rx Instructions: TAKE ONE TABLET BY MOUTH TWICE DAILY ezetimibe 10 mg tablet 10 mg PO Q OTHER DAY Rx Instructions: 10 mg orally EVERY OTHER DAY; metoprolol succinate [Toprol XL] 25 mg tablet extended release 24 hr 25 mg PO QAM Discharge Orders: Discharge Order (Routine); Ordered 07/09/24 Ordered By: Julian Henderson Admission Data Admit Date/Time: 07/05/24 11:19 Attending Provider: Julian Henderson Admit Provider: Marsha Morfin Primary Care Provider: Jeremy Chang Other Providers: Marsha Morfin Hospital Stay Data Consultations 07/04/24 20:25 ED Decision to Admit Stat Diagnostic Imagining Performed 07/04/24 16:10 CT abd pelvis IV con only Stat CT chest diagnostic w con Stat CT facial bones wo con Stat CT head/brain wo con Stat CT lumbar spine w con Stat CT thoracic spine w con Stat 07/04/24 16:11 CT cervical spine wo con Stat Pending Results Patient Have Any Pending Studies at Discharge: No Discharge Instructions Given to Patient (Per Discharging Provider) Continue Cipro 500 mg twice a day for 1 more week. Take tramadol 50 mg every 6 hours if needed for pain. Prescriptions have been sent to [facility] pharmacy in [place] Total Time Total Time Spent Total Time Spent (In Minutes): 45 minutes Coding Level of Care Code 59223 INP/OBS DISCH >30 MIN Diagnoses Fall W19.XXXA Venous stasis ulcer of other part of lower leg, unspecified laterality, unspecified ulcer stage, unspecified whether varicose veins present I83.008; L97.809 Venous stasis ulcer site: other part of lower leg Varicose vein presence: unspecified whether present Laterality: unspecified laterality Non-pressure ulcer stage: unspecified non-pressure ulcer stage Forehead laceration S01.81XA Encounter type: initial encounter Uncontrolled diabetes mellitus with retinopathy E11.319; E11.65 Rhabdomyolysis M62.82 Hypertension I10 Hyperlipidemia, unspecified hyperlipidemia type E78.5 Hyperlipidemia type: unspecified REBECCA (acute kidney injury) N17.9 BMI 50.0-59.9, adult Z68.43 Infected stasis ulcer of left lower extremity I83.229; L97.929
[2024-07-09 10:34] VITALS: BP 137/75
[2024-07-09] MEDS: INSULIN ASPART PER UNIT CHARGE SC STA (11:54)
== END 2024-07-09 14:00 | disposition home health service (06) | DRG 300 ==
LOC: SUATTDRO → ED 15:23 → EDINP 15:23 → SUATTDRO 21:09 → 2N 07-05 01:15 → SUATTDRO 07-05 11:19